=== PATIENT | female | born 1940 | race Caucasian/White ===

== ENCOUNTER → 2016-09-10 | Outpatient (CLI) | payer MEDICARE ==
--- NOTE | 2016-09-10 10:48 | US ---
EXAMINATION TYPE: US abdomen comp/pelvis limited DATE OF EXAM: 09/10/2016 9:09 AM COMPARISON: NONE CLINICAL HISTORY: Hematuria R31.9. 2 episodes of gross hematuria 6 months apart for one day EXAM MEASUREMENTS: Liver Length: 13.1 cm Gallbladder Wall: 0.2 cm CBD: 0.4 cm Spleen: 8.7 cm Right Kidney: 9.0 x 4.0 x 4.0 cm Left Kidney: 8.9 x 3.6 x 5.0 cm No renal stones or hydronephrosis are evident. 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 Monitoring with ultrasound is recommended.
== END | disposition home or self-care (01) ==
LOC: RADUSWWP 08:29
PROVIDERS: ATTEND Internal Medicine Geriatric Medicine
DX: R31.9 Hematuria, unspecified (principal)
CPT/HCPCS: 76700; 76857

== ENCOUNTER → 2016-09-20 | Outpatient (CLI) | payer MEDICARE ==
--- NOTE | 2016-09-20 14:33 | CT ---
EXAMINATION TYPE: CT abdomen pelvis wo con DATE OF EXAM: 09/20/2016 2:03 PM COMPARISON: Ultrasound abdomen 10 Sep 2016 HISTORY: Hematuria CT DLP: 683 mGycm Automated exposure control for dose reduction was used. TECHNIQUE: Helical acquisition of images from the lung bases through the pelvis. FINDINGS: Lack of intravenous contrast may compromise sensitivity. LUNG BASES: No significant abnormality is appreciated. AORTA: Atheromatous changes are present, there is no evident aneurysm. Coronary artery calcification s are present. At the level of the hiatus there is a bilobed soft tissue density present coursing fro m the level of the distal esophagus just anterior and lateral to the midline within the abdomen measu ring approximately 3 cm in AP dimension by 14 mm in transverse dimension and is indeterminate. LIVER/GB: No significant abnormality is appreciated. PANCREAS: No significant abnormality is seen. SPLEEN: No significant abnormality is seen. ADRENALS: No significant abnormality is seen. KIDNEYS: Small hypodense focus within the right renal cortex corresponds to ultrasound finding and ma y represent a small angiomyolipoma measuring only 7 mm. There is no hydronephrosis bilaterally, no ne phrolithiasis or ureteral calculus. REPRODUCTIVE ORGANS: Uterus and adnexal structures are somewhat atrophic URINARY BLADDER: There is a cystocele present.. BOWEL: Diverticular changes associated with the sigmoid colon. No evident bowel obstruction. FREE AIR: No Free Air is visible. ASCITES: None visible. PELVIC ADENOPATHY: None visualized. RETROPERITONEAL ADENOPATHY: No Retroperitoneal Adenopathy visible. OSSEOUS STRUCTURES: No significant abnormality is seen. IMPRESSION: NONCONTRAST EXAM. INDETERMINATE SOFT TISSUE LESION AT THE LEVEL OF THE DISTAL ESOPHAGUS EXTENDING INT O THE ABDOMEN IS INDETERMINATE BUT SHOWS A NONAGGRESSIVE APPEARANCE, OF QUESTIONABLE CLINICAL SIGNIFI CANCE. 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 CYSTOCELE I S PRESENT WITHIN THE BLADDER.
== END | disposition home or self-care (01) ==
LOC: RADCTMAIN 13:18
PROVIDERS: ATTEND Internal Medicine Geriatric Medicine
DX: N81.10 Cystocele, unspecified (principal); R31.9 Hematuria, unspecified
CPT/HCPCS: 74176

== ENCOUNTER → 2016-10-14 | Outpatient (CLI) | payer MEDICARE ==
[2016-10-14 11:14] LABS: Blood Urea Nitrogen 15 mg/dL (7-17); Non-African American GFR(MDRD) >60 (>60 ml/min/1.73 sqM)
--- NOTE | 2016-10-14 11:51 | CT ---
EXAMINATION TYPE: CT abdomen w con DATE OF EXAM: 10/14/2016 COMPARISON: NONE HISTORY: Episodes of hematuria CT DLP: 270.2 mGycm Automated exposure control for dose reduction was used. CONTRAST: Performed with Oral Contrast and with IV Contrast, patient injected with 100 mL of Omnipaque 300. FINDINGS: LUNG BASES: There is cardiomegaly correlate for COPD. LIVER/GB: Localized area of fatty infiltration involving the left lobe of liver. Areas PANCREAS: No s ignificant abnormality is seen. SPLEEN: No significant abnormality is seen. ADRENALS: No significant abnormality is seen. KIDNEYS: Subcentimeter density within the right kidney too small to characterize. No hydronephrosis. BOWEL: No significant abnormality is seen. LYMPH NODES: No significant abnormality is seen. OSSEOUS STRUCTURES: No significant abnormality is seen. OTHER: Atherosclerotic change aorta. Ectasia and eccentric atherosclerotic disease involving the left proximal common iliac artery with approximate 60% stenosis. IMPRESSION: THERE IS A 5 MM LESION INVOLVING THE ANTERIOR RIGHT CORTEX WHICH IS STABLE FROM THE PREVIOUS NONCONTR AST CT MAY REPRESENT AN ANGIOMYOLIPOMA IT APPEARS IT MAY REPRESENT FAT ATTENUATION ON THE PREVIOUS EXAM. THIS IS TOO SMALL TO ACCURATELY CHARACTERIZE. 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 CORRELATE FO R LEFT-SIDED CLAUDICATION. LEFT EXTERNAL ILIAC ARTERY DOES NOT ENHANCE AND MAY BE OCCLUDED ON A CHRON IC BASIS..
== END | disposition home or self-care (01) ==
LOC: RADCTMAIN 10:42
PROVIDERS: ATTEND Urology
DX: L98.9 Disorder of the skin and subcutaneous tissue, unspecified (principal); I77.811 Abdominal aortic ectasia
CPT/HCPCS: 82565; 84520; 74160; 36415; Q9967

== ENCOUNTER → 2017-12-15 | Outpatient (CLI) | payer MEDICARE ==
--- NOTE | 2017-12-15 13:02 | XR ---
EXAMINATION TYPE: XR chest 2V DATE OF EXAM: 12/15/2017 COMPARISON: Chest x-ray January 22, 2015. HISTORY: Cough since September with shortness of breath TECHNIQUE: Frontal and lateral views of the chest are obtained. FINDINGS: There is chronic parenchymal change without suspicious new focal air space opacity, pleura l effusion, or pneumothorax seen. The cardiac silhouette size is stable and upper limits of normal. The osseous structures are demineralized. IMPRESSION: Chronic changes without suspicious new acute pulmonary process.
== END | disposition home or self-care (01) ==
LOC: RADXRMAIN 12:30
PROVIDERS: ATTEND Internal Medicine Geriatric Medicine
DX: R05 Cough (principal)
CPT/HCPCS: 71046

== ENCOUNTER 2018-12-21 16:06 | Emergency (ER) | payer MEDICARE ==
[2018-12-21 16:14] VITALS: BP 104/63; PULSE 72; RESP 16; TEMP 98.1
[2018-12-21] MEDS ORDERED: Acetaminophen-Codeine 300-30mg TAB PO STA (17:14)
[2018-12-21 18:02] LABS: ALT 11 U/L (9-52); AST 16 U/L (14-36); African American GFR (CKD) >90 (>60 ml/min/1.73 sqM); Albumin 3.3 g/dL (3.5-5.0); Alkaline Phosphatase 101 U/L (38-126); Anion Gap 9 mmol/L; Blood Urea Nitrogen 21 mg/dL (7-17); Calcium 8.7 mg/dL (8.4-10.2); Carbon Dioxide 25 mmol/L (22-30); Chloride 101 mmol/L (98-107); Glucose 118 mg/dL (74-99); Sodium 135 mmol/L (137-145); Total Bilirubin 0.6 mg/dL (0.2-1.3); Total Protein 6.2 g/dL (6.3-8.2)
--- NOTE | 2018-12-21 18:08 | XR ---
EXAMINATION TYPE: XR shoulder complete LT DATE OF EXAM: 12/21/2018 COMPARISON: NONE HISTORY: Pain after fall TECHNIQUE: 3 views FINDINGS: There is impacted humeral neck fracture. There is no dislocation. There is osteopenia. IMPRESSION: Acute impacted humeral neck fracture. There is probably comminution.
--- NOTE | 2018-12-21 18:09 | XR ---
EXAMINATION TYPE: XR humerus LT DATE OF EXAM: 12/21/2018 COMPARISON: NONE HISTORY: Shoulder pain TECHNIQUE: 4 views FINDINGS: There is impacted humeral neck fracture. There is no dislocation. Elbow joint appears intac t. There is osteopenia. IMPRESSION: Acute impacted humeral neck fracture.
--- NOTE | 2018-12-21 18:10 | XR ---
EXAMINATION TYPE: XR chest 1V DATE OF EXAM: 12/21/2018 COMPARISON: 12/15/2017 HISTORY: Shoulder pain TECHNIQUE: Single frontal view of the chest is obtained. FINDINGS: Heart is normal. Lungs are clear of consolidation. Thoracic aorta is atheromatous. There a re no hilar masses. Bony thorax is intact. IMPRESSION: No active cardiopulmonary disease. Atheromatous aorta. No change.
[2018-12-21 18:25] LABS: Anisocytosis Slight; Basophils % (A) 0 %; Eosinophils # (A) 0.1 k/uL (0-0.7); Eosinophils % (A) 1 %; HCT 35.5 % (34.0-46.0); HGB 11.3 gm/dL (11.4-16.0); Lymphocytes # (A) 0.4 k/uL (1.0-4.8); Lymphocytes % (A) 6 %; MCH 33.6 pg (25.0-35.0); MCHC 31.9 g/dL (31.0-37.0); MCV 105.3 fL (80.0-100.0); Macrocytosis Moderate; Mean Platelet Volume 7.6; Monocytes # (A) 0.4 k/uL (0-1.0); Monocytes % (A) 5 %; Neutrophils # (A) 6.1 k/uL (1.3-7.7); Neutrophils % (A) 87 %; Platelet Count 433 k/uL (150-450); RBC 3.37 m/uL (3.80-5.40)
[2018-12-21] MEDS ORDERED: SODIUM CHLORIDE 0.9% 500 ML 500 ML IV STA (18:30)
--- NOTE | 2018-12-21 18:56 | ED ---
General Adult HPI - General Chief complaint: Fall Stated complaint: FALL Time Seen by Provider: 12/21/18 16:11 Source: patient, RN notes reviewed, old records reviewed Mode of arrival: EMS Limitations: no limitations - History of Present Illness Initial comments: 78-year-old female patient with past history significant for Parkinson's disease presents ED chief complaint fall, left shoulder pain. Patient reports that she has a shuffling gait, slipped walking the kitchen falling down hitting her left shoulder. Denies any trauma to head or neck, denies any loss of consciousness. Patient's daughter who was reportedly a registered nurse in the emergency department for many years also request patient undergo basic laboratory investigations check for dehydration, decreased oral intake. Systemic: Pt denies fatigue, fever/chills, rash. Pt denies weakness, night sweats, weight loss. Neuro: Pt denies headache, visual disturbances, syncope or pre-syncope. HEENT: Pt denies ocular discharge or irritation, otalgia, rhinorrhea, pharyngitis or notable lymphadenopathy. Cardiopulmonary: Pt denies chest pain, SOB, heart palpitations, dyspnea on exertion. Abdominal/GI: Pt denies abdominal pain, n/v/d. : Pt denies dysuria, burning w/ urination, frequency/urgency. Denies new onset urinary or bowel incontinence. MSK: Pt denies myalgia, loss of strength or function in extremities. Neuro: Pt denies new onset weakness, paresthesias. - Related Data Home Medications Medication Instructions Recorded Confirmed Aspirin EC [Ecotrin] 325 mg PO DAILY 01/22/15 01/23/15 Carbidopa-Levodopa 25-100 mg 1.5 tab PO QID 01/22/15 01/23/15 [Sinemet 25-100 mg] Cholecalciferol [Vitamin D3 (25 1,000 unit PO DAILY 01/22/15 01/23/15 Mcg = 1000 Iu)] Ubidecarenone [Co Q-10] 200 mg PO DAILY 01/22/15 01/23/15 Hydroxyurea [Hydrea] 500 mg PO BID 01/23/15 01/23/15 Allergies Allergy/AdvReac Type Severity Reaction Status Date / Time adhesive Allergy Unknown Verified 01/23/15 10:27 Review of Systems ROS Statement: Those systems with pertinent positive or pertinent negative responses have been documented in the HPI. ROS Other: All systems not noted in ROS Statement are negative. Past Medical History Past Medical History: Myocardial Infarction (CT), Neurologic Disorder Additional Past Medical History / Comment(s): Parkinson's Disease; Thrombocythemia Last Myocardial Infarction Date:: 2011 History of Any Multi-Drug Resistant Organisms: None Reported Past Surgical History: Heart Catheterization With Stent Past Anesthesia/Blood Transfusion Reactions: No Reported Reaction Additional Past Anesthesia/Blood Transfusion Reaction / Comment(s): Pt has never had. Date of Last Stent Placement:: 2011 Past Psychological History: No Psychological Hx Reported Smoking Status: Former smoker Past Alcohol Use History: None Reported Past Drug Use History: None Reported - Past Family History Mother Family Medical History: Chest Pain / Angina, Coronary Artery Disease (CAD) General Exam - General Exam Comments Initial Comments: Constitutional: NAD, AOX3, Pt has pleasant affect. HEENT: NC/AT, trachea midline, neck supple, no lymphadenopathy. Posterior p harynx non erythematous, without exudates. External ears appear normal, without discharge. Mucous membranes moist. Eyes PERRLA, EOM intact. There is no scleral icterus. No pallor noted. Cardiopulmonary: RRR, no murmurs, rubs or gallops, no JVD noted. Lungs CTAB in anterior and posterior wolfe. No peripheral edema. Abdominal exam: Abdomen soft and non-distended. Abdomen non-tender to palpation in all 4 quadrants. Bowel sounds active in LLQ. No hepatosplenomegaly. No ecchymosis Neuro: CN II-XII grossly intact. No nuchal rigidity. No raccon eyes, no day sign, no hemotympanum. No cervical spinal tenderness. MSK: Left proximal humerus tender to palpation. Distal pulses intact and equal. Flexion range of motion from fingers to elbow. Limited range of motion secondary to pain in left shoulder. No posterior calf tenderness bilaterally, homans sign negative bilaterally. Posterior tibialis and radial pulse +2 bilaterally. Sensation intact in upper and lower extremities. Full active ROM in upper and lower extremities, 5/5 stregnth. Limitations: no limitations Course Vital Signs 12/21/18 16:09 Temperature 98.1 F Pulse Rate 72 Respiratory 16 Rate Blood Pressure 104/63 O2 Sat by Pulse 99 Oximetry Medical Decision Making - Medical Decision Making 78-year-old female patient with past history significant for Parkinson's disease presents ED chief complaint fall, left shoulder pain. Patient reports that she has a shuffling gait, slipped walking the kitchen falling down hitting her left shoulder. Denies any trauma to head or neck, denies any loss of consciousness. Patient's daughter who was reportedly a registered nurse in the emergency department for many years also request patient undergo basic laboratory investigations check for dehydration, decreased oral intake. Patient vital signs stable, afebrile. Physical exam displayed: Left proximal humerus tender to palpation. Distal pulses intact and equal. Flexion range of motion from fingers to elbow. Limited range of motion secondary to pain in left shoulder. No posterior calf tenderness bilaterally, homans sign negative bilaterally. Posterior tibialis and radial pulse +2 bilaterally. Sensation intact in upper and lower extremities. Full active ROM in upper and lower extremities, 5/5 stregnth. Laboratory investigations reveal non-impressive CBC, CMP. UA contaminated, will culture. Plain films of left shoulder, femur displayed acute impacted humeral neck fracture. Chest displayed no acute process. Patient placed in a shoulder sling, will be discharged with orthopedic follow-up. Case discussed with Dr. Cole. - Lab Data Result diagrams: 12/21/18 17:40 12/21/18 17:40 Lab Results 12/21/18 12/21/18 12/21/18 Range/Units 17:40 17:40 18:30 WBC 7.0 (3.8-10.6) k/uL RBC 3.37 L (3.80-5.40) m/uL Hgb 11.3 L (11.4-16.0) gm/dL Hct 35.5 (34.0-46.0) % MCV 105.3 H (80.0-100.0) fL MCH 33.6 (25.0-35.0) pg MCHC 31.9 (31.0-37.0) g/dL RDW 17.0 H (11.5-15.5) % Plt Count 433 (150-450) k/uL Neutrophils % 87 % Lymphocytes % 6 % Monocytes % 5 % Eosinophils % 1 % Basophils % 0 % Neutrophils # 6.1 (1.3-7.7) k/uL Lymphocytes # 0.4 L (1.0-4.8) k/uL Monocytes # 0.4 (0-1.0) k/uL Eosinophils # 0.1 (0-0.7) k/uL Basophils # 0.0 (0-0.2) k/uL Anisocytosis Slight Macrocytosis Moderate Sodium 135 L (137-145) mmol/L Potassium 4.0 (3.5-5.1) mmol/L Chloride 101 (98-107) mmol/L Carbon Dioxide 25 (22-30) mmol/L Anion Gap 9 mmol/L BUN 21 H (7-17) mg/dL Creatinine 0.54 (0.52-1.04) mg/dL Est GFR (CKD-EPI)AfAm >90 (>60 ml/min/1.73 sqM) Est GFR (CKD-EPI)NonAf >90 (>60 ml/min/1.73 sqM) Glucose 118 H (74-99) mg/dL Calcium 8.7 (8.4-10.2) mg/dL Total Bilirubin 0.6 (0.2-1.3) mg/dL AST 16 (14-36) U/L ALT 11 (9-52) U/L Alkaline Phosphatase 101 (38-126) U/L Total Protein 6.2 L (6.3-8.2) g/dL Albumin 3.3 L (3.5-5.0) g/dL Urine Color Red Urine Appearance Cloudy H (Clear) Urine pH 5.5 (5.0-8.0) Ur Specific [place] 1.029 (1.001-1.035) Urine Protein 1+ H (Negative) Urine Glucose (UA) Negative (Negative) Urine Ketones 2+ H (Negative) Urine Blood Trace H (Negative) Urine Nitrite Negative (Negative) Urine Bilirubin Negative (Negative) Urine Urobilinogen 3.0 (<2.0) mg/dL Ur Leukocyte Esterase Moderate H (Negative) Urine RBC 6 H (0-5) /hpf Urine WBC 9 H (0-5) /hpf Ur Squamous Epith Cells 11 H (0-4) /hpf Calcium Oxalate [place] Few H (None) /hpf Urine Bacteria Few H (None) /hpf Urine Mucus Few H (None) /hpf Urine Yeast (Budding) Rare H (None) /hpf Disposition Clinical Impression: Humerus fracture Disposition: HOME SELF-CARE Condition: Stable Instructions (If sedation given, give patient instructions): Arm Fracture in Adults (ED) Additional Instructions: Patient to adhere to previously discussed treatment plan and will take medication(s) as directed. Patient to follow up with PCP in 1-2 days. Patient to return to ED if symptoms do not improve. Follow-up with orthopedic consult tomorrow, return to ER if condition worsens. Take pain medication as needed. Is patient prescribed a controlled substance at d/c from ED?: No Referrals: Ky Coats MD [Primary Care Provider] - 1-2 days Neftali Palm PAC [PHYSICIAN HVAC R TECH] - 1-2 days
[2018-12-21 18:59] LABS: Appearance,Urine Cloudy (Clear); Bacteria,Urine Few /hpf; Bilirubin,Urine Negative (Negative); Blood,Urine Trace (Negative); Budding Yeast,Urine Rare /hpf; Calcium Oxalate Crystals,Urine Few /hpf; Color,Urine Red; Glucose,Urine (UA) Negative (Negative); Ketones,Urine 2+ (Negative); Leukocyte Esterase,Urine Moderate (Negative); Mucus,Urine Few /hpf; Nitrite,Urine Negative (Negative); PH, Urine 5.5 (5.0-8.0); Protein,Urine 1+ (Negative); RBC,Urine 6 /hpf (0-5); Specific Gravity,Urine 1.029 (1.001-1.035); Squamous Epithelial Cell,Urine 11 /hpf (0-4); WBC,Urine 9 /hpf (0-5)
[2018-12-21] MEDS ORDERED: ACET/COD 300 MG/30 MG STARTER PACK 6 TAB BTL PO STA (19:14)
== END 2018-12-21 19:35 | disposition home or self-care (01) ==
LOC: EC 16:06
DX: S42.202A Unspecified fracture of upper end of left humerus, initial encounter for closed fracture (principal); I25.2 Old myocardial infarction; G20 Parkinson's disease; Z95.5 Presence of coronary angioplasty implant and graft; Z87.891 Personal history of nicotine dependence; Z79.82 Long term (current) use of aspirin; Z79.899 Other long term (current) drug therapy; Z91.048 Other nonmedicinal substance allergy status; W01.10XA Fall on same level from slipping, tripping and stumbling with subsequent striking against unspecified object, initial encounter; Y93.01 Activity, walking, marching and hiking; Y92.000 Kitchen of unspecified non-institutional (private) residence as the place of occurrence of the external cause
CPT/HCPCS: 36415; 71045; 80053; 81001; 85025; 99284

== ENCOUNTER → 2018-12-29 | Outpatient (CLI) | payer MEDICARE | END | disposition home or self-care (01) | LOC: LABWHC1 11:18 | PROVIDERS: ATTEND Orthopaedic Surgery | DX: M25.512 Pain in left shoulder (principal); S42.232A 3-part fracture of surgical neck of left humerus, initial encounter for closed fracture | CPT/HCPCS: 36415; 82306 ==

== ENCOUNTER 2019-01-04 12:22 | Inpatient (IN) | payer MEDICARE ==
[2019-01-04] MEDS ORDERED: MORPHINE SULFATE 2 MG/ML SYRINGE IVP PRN (14:33)
[2019-01-04] MEDS ORDERED: traMADol 50 MG TAB PO PRN (14:34)
[2019-01-04 15:38] VITALS: BMI 22.4
[2019-01-04] MEDS ORDERED: MAGNESIUM OXIDE 400 MG TAB PO PRN (18:12)
[2019-01-04] MEDS: CHOLECALCIFEROL 1,000 UNIT TAB PO SCH (20:29)
[2019-01-04] MEDS: CARBIDOPA-LEVODOPA 25-100 MG 1 EACH TAB PO SCH (20:30)
[2019-01-04] MEDS ORDERED: CARBIDOPA-LEVODOPA 25-100 MG 1 EACH TAB PO PRN (21:00)
[2019-01-05 05:36] VITALS: RESP 16
[2019-01-05] MEDS: ASPIRIN 325 MG TAB PO SCH (08:18)
[2019-01-05] MEDS: CARBIDOPA-LEVODOPA 25-100 MG 1 EACH TAB PO SCH ×4 (08:19→21:16)
--- NOTE | 2019-01-05 10:40 | P.HPOR ---
History of Present Illness H&P Date: 01/05/19 Chief Complaint: Left proximal humerus fracture The patient is a very pleasant 79-year-old female with a significant history of Parkinson's disease and heart disease who presented to our office last week with left arm pain after sustaining a fall. She was found to have a proximal humerus fracture that we've recommended closed treatment. At that time in the office, Dr. Louis recommended hospital admission with transfer to skilled rehab but the patient declined. She states that she was able to take care of herself at home. She continued to decline physically over the weekend and she called our office yesterday to be admitted to the hospital. Her patient also increased over the weekend and she was unable to take care of herself at home. The patient does use a cane and has weakened gait due to a fracture and pain. She is currently in a sling which is somewhat comfortable. Today, she states her pain is controlled at this time. PT and OT evaluations were ordered and case management has seen the patient. Review of Systems Constitutional: Denies chills, Denies fatigue, Denies fever Cardiovascular: Denies chest pain, Denies shortness of breath Respiratory: Denies cough Gastrointestinal: Denies diarrhea, Denies nausea, Denies vomiting Musculoskeletal: left: shoulder pain, shoulder stiffness, shoulder swelling Past Medical History Past Medical History: Blood Disorder, Coronary Artery Disease (CAD), GERD/Reflux, Myocardial Infarction ([place]), Musculoskeletal Disorder, Neurologic Disorder, Osteoarthritis (OA) Additional Past Medical History / Comment(s): Parkinson's disease, thrombocythemia Last Myocardial Infarction Date:: 2012 History of Any Multi-Drug Resistant Organisms: None Reported Past Surgical History: Heart Catheterization, Heart Catheterization With Stent, Tonsillectomy, Tubal Ligation Additional Past Surgical History / Comment(s): 2003 PCI with 2 stents, 2009 PCI with 1 stent, 2012 cardiac cath-treat medically, bilateral cataract removals/lens implants. Past Anesthesia/Blood Transfusion Reactions: No Reported Reaction Additional Past Anesthesia/Blood Transfusion Reaction / Comment(s): Pt has never had. Date of Last Stent Placement:: 2009 Smoking Status: Former smoker - Past Family History Father Family Medical History: Cancer Additional Family Medical History / Comment(s): Father had prostate cancer. Mother Family Medical History: Chest Pain / Angina, Coronary Artery Disease (CAD) Medications and Allergies Home Medications Medication Instructions Recorded Confirmed Type Aspirin EC [Ecotrin] 325 mg PO DAILY 01/22/15 01/04/19 History Carbidopa-Levodopa 25-100 mg 2 tab PO QID 01/22/15 01/04/19 History [Sinemet 25-100 mg] Cholecalciferol [Vitamin D3 (25 2,000 unit PO DAILY 01/22/15 01/04/19 History Mcg = 1000 Iu)] Hydroxyurea [Hydrea] 500 mg PO DIRECTED 01/23/15 01/04/19 History Carbidopa-Levodopa 25-100 mg 1 tab PO HS PRN 01/04/19 01/04/19 History [Sinemet 25-100] Ibuprofen [Advil] 400 - 600 mg PO Q4H PRN 01/04/19 01/04/19 History Magnesium 200 mg PO DAILY PRN 01/04/19 01/04/19 History Allergies Allergy/AdvReac Type Severity Reaction Status Date / Time adhesive Allergy Rash/Hives Verified 01/04/19 16:19 shellfish derived [Shellfish] AdvReac Nausea & Verified 01/04/19 16:19 Vomiting & Diarrhea Physical Examination The patient is a pleasant 79-year-old female who is in no acute distress. She is alert and oriented 3. The patient's head is normocephalic atraumatic. Exam of the cervical spine reveals no tenderness to palpation or step-offs noted. Exam of the left shoulder reveals some evolving ecchymosis to the upper arm. Range of motion of the shoulder was not tested today. Normal range of motion of the elbow, wrist, and hand. No numbness present. Neurological and circulatory status is intact. Hand is warm and well perfused. Results - Diagnostic results Shoulder x-ray: other (X-rays from our office of the left shoulder reveal a minimally displaced proximal humerus fracture. Fracture alignment is satisfactory.) Assessment and Plan (1) Fracture of humerus, proximal, left, closed Current Visit: Yes Status: Acute Code(s): S42.202A - UNSP FRACTURE OF UPPER END OF LEFT HUMERUS, INIT FOR CLOS FX SNOMED Code(s): 36098465 (2) Parkinsons disease Current Visit: Yes Status: Acute Code(s): G20 - PARKINSON'S DISEASE SNOMED Code(s): 81800145 Plan: The clinical and x-ray findings were discussed with the patient and the patient's caregiver at the bedside. The case was also discussed with Dr. Louis. No surgical intervention is planned at this time. We are recommending skilled rehab placement to [facility]. PT and OT evaluations have been requested. Continue pain control with morphine IV as needed and Ultram. Continue in arm sling. Internal medicine consult has been requested as well. We will await arrangements with social work and onelia geronimo for rehab placement.
[2019-01-05] MEDS ORDERED: SODIUM CHLORIDE 0.9% 1,000 ML IV SCH (13:15)
--- NOTE | 2019-01-05 13:21 | P.HPIM ---
History of Present Illness H&P Date: 01/05/19 Chief Complaint: Left humerus fracture, cough, dysphagia, generalized weakness This is a 79-year-old female patient of Dr. Coats with a past mental history of Parkinson's disease, thrombocythemia on Hydrea, coronary artery disease status post multiple stenting, gastroesophageal reflux disease. Patient gives history that 2 weeks ago she had a fall while walking from the living room to the kitchen. She normally has a shuffling gait secondary to her Parkinson's. She had a fall landing on her left shoulder. She denied any loss of consciousness, head trauma, neck ache. Patient came into [facility] emergency center on December 21 for evaluation. Patient was found to have an acute impacted humeral neck fracture. Patient was discharged home and has been following with Dr. Louis. Patient has had [place] home care and with physical therapy twice weekly the patient is not improving. Patient has been working with therapies and actually is declining. There is concern for failure to thrive. Patient states that she is not eating or drinking very well. There is concern for dysphagia and a cough. She did have a chest x-ray obtained on December 21 that was negative for any acute findings. Patient has been directly admitted to the [facility] floor by orthopedics. She has been afebrile, heart rate 89, blood pressure 84/49-110/62 this morning, pulse ox 96% on room air. Review of Systems Constitutional: Reports anorexia, Reports fatigue, Reports lethargy, Reports malaise, Reports poor appetite, Reports weakness, Denies chills, Denies fever Ears, nose, mouth and throat: Reports dysphagia, Denies dental pain, Denies mouth pain, Denies nasal congestion, Denies nasal discharge, Denies vertigo Cardiovascular: Denies chest pain, Denies decreased exercise tolerance, Denies dyspnea on exertion, Denies edema, Denies leg edema, Denies lightheadedness, Denies shortness of breath, Denies syncope Respiratory: Denies congestion, Denies cough, Denies cough with sputum, Denies dyspnea, Denies hemoptysis, Denies home oxygen, Denies wheezing Gastrointestinal: Reports loss of appetite, Denies abdominal pain, Denies diarrhea, Denies nausea, Denies vomiting Genitourinary: Denies dysuria, Denies hematuria, Denies urgency, Denies urinary frequency Musculoskeletal: Reports gait dysfunction, Reports muscle weakness Musculoskeletal: left: shoulder pain, shoulder stiffness Integumentary: Denies pruritus, Denies rash, Denies wounds Neurological: Reports syncope, Denies change in mentation, Denies change in speech, Denies numbness, Denies seizures, Denies weakness Psychiatric: Denies anxiety, Denies depression Endocrine: Denies fatigue, Denies weight change Past Medical History Past Medical History: Blood Disorder, Coronary Artery Disease (CAD), GERD/Reflux, Myocardial Infarction (ID), Musculoskeletal Disorder, Neurologic Disorder, Osteoarthritis (OA) Additional Past Medical History / Comment(s): Parkinson's disease, thrombocythemia Last Myocardial Infarction Date:: 2012 History of Any Multi-Drug Resistant Organisms: None Reported Past Surgical History: Heart Catheterization, Heart Catheterization With Stent, Tonsillectomy, Tubal Ligation Additional Past Surgical History / Comment(s): 2003 PCI with 2 stents, 2009 PCI with 1 stent, 2012 cardiac cath-treat medically, bilateral cataract removals/lens implants. Past Anesthesia/Blood Transfusion Reactions: No Reported Reaction Additional Past Anesthesia/Blood Transfusion Reaction / Comment(s): Pt has never had. Date of Last Stent Placement:: 2009 Smoking Status: Former smoker Additional Past Alcohol Use History / Comment(s): Patient was a smoker for 44 years and quit in 2003. No illicit drug use, no alcohol use. - Past Family History Father Family Medical History: Cancer Additional Family Medical History / Comment(s): Father had prostate cancer. Mother Family Medical History: Chest Pain / Angina, Coronary Artery Disease (CAD) Medications and Allergies Home Medications Medication Instructions Recorded Confirmed Type Aspirin EC [Ecotrin] 325 mg PO DAILY 01/22/15 01/04/19 History Carbidopa-Levodopa 25-100 mg 2 tab PO QID 01/22/15 01/04/19 History [Sinemet 25-100 mg] Cholecalciferol [Vitamin D3 (25 2,000 unit PO DAILY 01/22/15 01/04/19 History Mcg = 1000 Iu)] Hydroxyurea [Hydrea] 500 mg PO DIRECTED 01/23/15 01/04/19 History Carbidopa-Levodopa 25-100 mg 1 tab PO HS PRN 01/04/19 01/04/19 History [Sinemet 25-100] Ibuprofen [Advil] 400 - 600 mg PO Q4H PRN 01/04/19 01/04/19 History Magnesium 200 mg PO DAILY PRN 01/04/19 01/04/19 History traMADol HCl [Ultram] 50 - 100 mg PO Q4-6H PRN #60 tab 01/05/19 Rx Allergies Allergy/AdvReac Type Severity Reaction Status Date / Time adhesive Allergy Rash/Hives Verified 01/04/19 16:19 shellfish derived [Shellfish] AdvReac Nausea & Verified 01/04/19 16:19 Vomiting & Diarrhea Physical Exam Vitals: Vital Signs Temp Pulse Resp BP Pulse Ox 01/05/19 05:00 97.6 F 84 16 141/87 96 01/05/19 01:53 82 18 148/95 96 01/05/19 00:25 70 16 01/04/19 21:00 97.9 F 70 16 118/77 99 01/04/19 15:26 78 16 01/04/19 15:00 97.7 F 78 16 91/62 98 Intake and Output 01/04/19 01/05/19 01/05/19 22:59 06:59 14:59 Intake Total 590 Balance 590 Intake: Oral 590 Other: Voiding Method Toilet Toilet # Voids 1 2 Weight 52.163 kg Gen: This is a frail 79-year-old female. She is resting in chair and appears to be comfortable. No acute distress. HEENT: Head is atraumatic, normocephalic. Pupils equal, round. Sclerae is a nicteric. NECK: Supple. No JVD. No lymphadenopathy. No thyromegaly. LUNGS: Clear to auscultation. No wheezes or rhonchi. No intercostal retractions. HEART: Regular rate and rhythm. No murmur. ABDOMEN: Soft. Bowel sounds are present. No masses. No tenderness. EXTREMITIES: No pedal edema. No calf tenderness. Sling in place to the left shoulder. NEUROLOGICAL: Patient is awake, alert and oriented x3. Cranial nerves 2 through 12 are grossly intact. Thrombosis Risk Factor Assmnt - Choose All That Apply Any of the Below Risk Factors Present?: Yes Other Risk Factors: Yes Each Risk Factor Represents 3 Points: Age 75 years or older Other congenital or acquired thrombophilia - If yes, enter type in comment: No Thrombosis Risk Factor Assessment Total Risk Factor Score: 3 Thrombosis Risk Factor Assessment Level: Moderate Risk Assessment and Plan Plan: 1. Left humerus fracture, failed outpatient treatment area and patient overall physical decline despite home care and physical therapy. 2. Dysphagia. Consult with speech therapy. Patient may require modified barium swallow. 3. Parkinson's disease. Continue Sinemet 2 tablets 4 times daily and 1 at b edtime as needed. 4. Thrombocythemia. Continue Hydrea per home dose. 5. Gastroesophageal reflux disease. Pepcid. 6. DVT prophylaxis. Lovenox subcu daily. Patient will be admitted to the hospital for a minimum of 2 night stay. Discharge plan: Subacute rehab for therapies as patient failed outpatient treatment in the home. Impression and plan of care have been directed as dictated by the signing physician. Linda Baxter nurse practitioner acting as scribe for signing physician.
[2019-01-05] MEDS ORDERED: HYDROXYUREA 500 MG CAP PO SCH (18:00)
[2019-01-05] MEDS: CHOLECALCIFEROL 1,000 UNIT TAB PO SCH (21:16)
[2019-01-06] MEDS: CARBIDOPA-LEVODOPA 25-100 MG 1 EACH TAB PO SCH ×2 (07:43→12:27)
[2019-01-06] MEDS: ASPIRIN 325 MG TAB PO SCH (07:44)
[2019-01-06 13:01] VITALS: BP 110/69; PULSE 99; TEMP 98
--- NOTE | 2019-01-06 13:02 | P.PN ---
Subjective Progress Note Date: 01/06/19 This is a 79-year-old female patient of Dr. Coats with a past mental history of Parkinson's disease, thrombocythemia on Hydrea, coronary artery disease status post multiple stenting, gastroesophageal reflux disease. Patient gives history that 2 weeks ago she had a fall while walking from the living room to the kitchen. She normally has a shuffling gait secondary to her Parkinson's. She had a fall landing on her left shoulder. She denied any loss of consciousness, head trauma, neck ache. Patient came into [facility] emergency center on December 21 for evaluation. Patient was found to have an acute impacted humeral neck fracture. Patient was discharged home and has been following with Dr. Louis. Patient has had [place] home care and with physical therapy twice weekly the patient is not improving. Patient has been working with therapies and actually is declining. There is concern for failure to thrive. Patient states that she is not eating or drinking very well. There is concern for dysphagia and a cough. She did have a chest x-ray obtained on December 21 that was negative for any acute findings. Patient has been directly admitted to the [facility] floor by orthopedics. She has been afebrile, heart rate 89, blood pressure 84/49-110/62 this morning, pulse ox 96% on room air. 01/06: Patient has been seen by PT and OT with recommendations for subacute rehab. Patient has been seen by therapy for dysphagia and she did pass swallow evaluation with recommendations for regular diet and thin liquids. Patient has been afebrile, heart rate 89, blood pressure 140/77, pulse ox 98% on room air. Insurance authorization has been obtained for subacute rehab and patient will be discharged to [facility] in stable condition today. Medication reconciliation has been reviewed. Review of Systems Constitutional: Reports fatigue, Reports lethargy, Reports malaise, denies poor appetite, Reports weakness, Denies chills, Denies fever Ears, nose, mouth and throat: Reports dysphagia-past swallow evaluation., Denies dental pain, Denies mouth pain, Denies nasal congestion, Denies nasal discharge, Denies vertigo Cardiovascular: Denies chest pain, Denies decreased exercise tolerance, Denies dyspnea on exertion, Denies edema, Denies leg edema, Denies lightheadedness, Denies shortness of breath, Denies syncope Respiratory: Denies congestion, Denies cough, Denies cough with sputum, Denies dyspnea, Denies hemoptysis, Denies home oxygen, Denies wheezing Gastrointestinal: Reports loss of appetite, Denies abdominal pain, Denies diarrhea, Denies nausea, Denies vomiting Genitourinary: Denies dysuria, Denies hematuria, Denies urgency, Denies urinary frequency Musculoskeletal: Reports gait dysfunction, Reports muscle weakness Musculoskeletal: left: shoulder pain, shoulder stiffness Integumentary: Denies pruritus, Denies rash, Denies wounds Neurological: Reports syncope, Denies change in mentation, Denies change in speech, Denies numbness, Denies seizures, Denies weakness Psychiatric: Denies anxiety, Denies depression Endocrine: Denies fatigue, Denies weight change Objective - Vital Signs Vital signs: Vital Signs Temp 97.3 F L 01/06/19 05:00 Pulse 89 01/06/19 05:00 Resp 16 01/06/19 05:00 BP 140/77 01/06/19 05:00 Pulse Ox 98 01/06/19 05:00 Intake & Output 01/05/19 01/06/19 01/06/19 18:59 06:59 18:59 Intake Total 720 Balance 720 Intake: Oral 720 Other: Voiding Method Toilet Toilet Toilet # Voids 4 1 2 # Bowel Movements 1 - Exam Gen: This is a frail 79-year-old female. She is resting in chair and appears to be comfortable. No acute distress. Friend is at the bedside. HEENT: Head is atraumatic, normocephalic. Pupils equal, round. Sclerae is anicteric. NECK: Supple. No JVD. No lymphadenopathy. No thyromegaly. LUNGS: Clear to auscultation. No wheezes or rhonchi. No intercostal retractions. HEART: Regular rate and rhythm. No murmur. ABDOMEN: Soft. Bowel sounds are present. No masses. No tenderness. EXTREMITIES: No pedal edema. No calf tenderness. Sling in place to the left shoulder. NEUROLOGICAL: Patient is awake, alert and oriented x3. Cranial nerves 2 through 12 are grossly intact. Assessment and Plan Plan: 1. Left humerus fracture, failed outpatient treatment area and patient overall physical decline despite home care and physical therapy. 2. Dysphagia. Consult with speech therapy is appreciated. Patient past and is on a regular diet with thin liquids.. 3. Parkinson's disease. Continue Sinemet 2 tablets 4 times daily and 1 at bedtime as needed. 4. Thrombocythemia. Continue Hydrea per home dose. 5. Gastroesophageal reflux disease. Pepcid. 6. DVT prophylaxis. Lovenox subcu daily. Discharge plan: [facility] Impression and plan of care have been directed as dictated by the signing physician. Linda Baxter nurse practitioner acting as scribe for signing physician.
--- NOTE | 2019-01-06 13:25 | P.DS ---
Providers Date of admission: 01/04/19 14:37 Expected date of discharge: 01/06/19 Attending physician: Eliel Louis Consults: 01/04/19 14:36 Consult Physician Routine Consulting Provider: Ky Coats Reason/Comments: medical management Do you want consulting provider notified?: Yes Primary care physician: Ky Coats [facility] Course: This patient is a 79-year-old female with past medical history of Parkinson's disease, thrombocythemia, coronary artery disease status post multiple stenting that initially presented to our office last week after injury, and was found to have a left proximal humerus fracture. Closed treatment was recommended by Dr. Louis. At that time, hospital admission was recommended, with transfer to a skilled rehab facility, although patient declined. Patient declined physically, therefore she called our office Friday to request admission. Patient was direct admitted to [facility] due to issues taking care of herself at home and weakened gait, and also for PT and OT evaluations, with rehab placement. Patient was examined bedside this morning. Patient states her pain is currently well controlled. She is wearing her sling, which is comfortable. Patient is tolerating her diet well. She states she was evaluated by therapy yesterday. Patient denies any new complaints today. Patient denies chest pain, shortness of breath, nausea, vomiting, fevers, chills. Vital signs stable. On examination, the patient is sitting in the bedside chair in no apparent distress. She is alert and oriented 3. Inspection of the left upper extremity, there is a sling in place. Sling appears to be well fitting. There is resolving ecchymosis of the proximal arm. There is no pain on palpation of the distal humerus, elbow, forearm, wrist, or hand. Patient has full range of motion of fingers, hand, elbow. Range of motion of the shoulder is not tested today. Motor and sensory function are intact of the left upper extremity. Radial pulse palpable. Brisk capillary refill of all fingers and thumb. Patient is discharged to a alf facility today, pending medical clearance. Please see med rec for an accurate list of discharge medications. Assessment: Pertinent Studies: X-rays of the left shoulder are ordered on 01/06/2019 prior to discharge to assess for interval displacement of the left proximal humerus fracture. Results pending. Patient Condition at Discharge: Fair Plan - Discharge Summary Discharge Rx Participant: No New Discharge Prescriptions: New traMADol HCl [Ultram] 50 - 100 mg PO Q4-6H PRN #60 tab PRN Reason: Pain Continue Cholecalciferol [Vitamin D3 (25 Mcg = 1000 Iu)] 2,000 unit PO DAILY Carbidopa-Levodopa 25-100 mg [Sinemet 25-100 mg] 2 tab PO QID Aspirin EC [Ecotrin] 325 mg PO DAILY Magnesium 200 mg PO DAILY PRN PRN Reason: Muscle Spasm Carbidopa-Levodopa 25-100 mg [Sinemet 25-100 mg] 1 tab PO HS PRN PRN Reason: Parkinson's Changed Hydroxyurea [Hydrea] 500 mg PO DAILY #0 Discontinued Ibuprofen [Advil] 400 - 600 mg PO Q4H PRN PRN Reason: Pain Discharge Medication List Aspirin EC [Ecotrin] 325 mg PO DAILY 01/22/15 [History] Carbidopa-Levodopa 25-100 mg [Sinemet 25-100 mg] 2 tab PO QID 01/22/15 [History] Cholecalciferol [Vitamin D3 (25 Mcg = 1000 Iu)] 2,000 unit PO DAILY 01/22/15 [History] Carbidopa-Levodopa 25-100 mg [Sinemet 25-100 mg] 1 tab PO HS PRN 01/04/19 [History] Magnesium 200 mg PO DAILY PRN 01/04/19 [History] traMADol HCl [Ultram] 50 - 100 mg PO Q4-6H PRN #60 tab 01/05/19 [Rx] Hydroxyurea [Hydrea] 500 mg PO DAILY #0 01/06/19 [Rx] Follow up Appointment(s)/Referral(s): Ky Coats MD [Primary Care Provider] - 1 Week (after discharge from ECF) Eliel Louis MD [Medical Doctor] - 2 Weeks Activity/Diet/Wound Care/Special Instructions: Maintain arm sling except for bathing. May loosen sling when lying in bed or in recliner chair for comfort. Ice as needed Ultram for pain PRN. Follow up with Dr. Louis in 2 weeks. Call for appointment. Call [facility] with any questions or concerns, . Discharge Disposition: TRANSFER TO SNF/ECF
--- NOTE | 2019-01-06 15:06 | XR ---
EXAMINATION TYPE: XR shoulder limited LT DATE OF EXAM: 01/06/2019 CLINICAL HISTORY: TECHNIQUE: Three views of the shoulder are obtained. COMPARISON: None. FINDINGS: There is redemonstration of an acute impacted left proximal neck fracture as seen on the p rior of 12/21/2018. No comminuted or intra-articular component. Diffuse osseous demineralization is se en. Visualized left ribs appear grossly intact. Left lung remains well aerated. Acromioclavicular miryam nt is aligned. No left shoulder dislocation is seen. IMPRESSION: As discussed on the left humeral and left shoulder fractures dated 12/21/2018 there is red emonstration of an acute impacted left proximal humeral neck fracture unchanged from 12/21/2018.
[2019-01-09] MEDS ORDERED: HYDROXYUREA 500 MG CAP PO SCH ×2 (09:00→21:00)
== END 2019-01-06 15:00 | DRG 563 ==
LOC: 3NMEDONC 14:37
PROVIDERS: ADMIT Orthopaedic Surgery; ATTEND Orthopaedic Surgery
DX: S42.212A Unspecified displaced fracture of surgical neck of left humerus, initial encounter for closed fracture (principal); D47.3 Essential (hemorrhagic) thrombocythemia; G20 Parkinson's disease; I25.10 Atherosclerotic heart disease of native coronary artery without angina pectoris; I25.2 Old myocardial infarction; K21.9 Gastro-esophageal reflux disease without esophagitis; R13.10 Dysphagia, unspecified; W19.XXXA Unspecified fall, initial encounter; Z79.82 Long term (current) use of aspirin; Z80.42 Family history of malignant neoplasm of prostate; Z82.49 Family history of ischemic heart disease and other diseases of the circulatory system; Z87.891 Personal history of nicotine dependence; Z95.5 Presence of coronary angioplasty implant and graft; Z98.42 Cataract extraction status, left eye; Z98.41 Cataract extraction status, right eye; Z96.1 Presence of intraocular lens; Z91.013 Allergy to seafood; M19.90 Unspecified osteoarthritis, unspecified site

== ENCOUNTER 2020-07-04 16:58 | Inpatient (IN) | payer MEDICARE ==
[2020-07-04] MEDS ORDERED: SODIUM CHLORIDE 0.9% 500 ML 500 ML IV STA ×2 (17:49→21:52)
--- NOTE | 2020-07-04 18:26 | XR ---
EXAMINATION TYPE: XR chest 2V DATE OF EXAM: 07/04/2020 COMPARISON: Chest x-ray December 21, 2018 HISTORY: Difficulty in breathing. TECHNIQUE: Frontal and lateral views of the chest are obtained. FINDINGS: There chronic parenchymal changes bilaterally without suspicious new focal air space opaci ty, pleural effusion, or pneumothorax seen. The cardiac silhouette size is stable and upper limits o f normal. The osseous structures are redemonstrated demineralized. There is moderate to severe susp ected chronic compression type fracture abruptly T8 level seen on lateral view on current study. IMPRESSION: Chronic changes without acute pulmonary process.
[2020-07-04 18:46] LABS: Basophils # (A) 0.1 k/uL (0-0.2); Basophils % (A) 1 %; Eosinophils # (A) 0.1 k/uL (0-0.7); Eosinophils % (A) 2 %; HCT 38.7 % (34.0-46.0); HGB 12.5 gm/dL (11.4-16.0); Lymphocytes # (A) 1.6 k/uL (1.0-4.8); Lymphocytes % (A) 29 %; MCH 35.8 pg (25.0-35.0); MCHC 32.4 g/dL (31.0-37.0); MCV 110.4 fL (80.0-100.0); Macrocytosis Marked; Mean Platelet Volume 7.7; Monocytes # (A) 0.3 k/uL (0-1.0); Monocytes % (A) 5 %; Neutrophils # (A) 3.3 k/uL (1.3-7.7); Neutrophils % (A) 61 %; Platelet Count 333 k/uL (150-450); RBC 3.51 m/uL (3.80-5.40); RDW 13.7 % (11.5-15.5); WBC 5.5 k/uL (3.8-10.6)
[2020-07-04 18:59] LABS: ALT <6 U/L (4-34); AST 40 U/L (14-36); African American GFR (CKD) >90 (>60 ml/min/1.73 sqM); Albumin 3.9 g/dL (3.5-5.0); Alkaline Phosphatase 71 U/L (38-126); Anion Gap 5 mmol/L; Blood Urea Nitrogen 27 mg/dL (7-17); Calcium 8.8 mg/dL (8.4-10.2); Carbon Dioxide 26 mmol/L (22-30); Chloride 103 mmol/L (98-107); Glucose 92 mg/dL (74-99); Non-African American GFR(CKD) 88 (>60 ml/min/1.73 sqM); Sodium 134 mmol/L (137-145); Total Bilirubin 0.8 mg/dL (0.2-1.3); Total Protein 7.1 g/dL (6.3-8.2)
[2020-07-04 19:06] LABS: Potassium 5.5 mmol/L (3.5-5.1)
[2020-07-04 19:14] LABS: Appearance,Urine Clear (Clear); Bacteria,Urine Rare /hpf; Bilirubin,Urine Negative (Negative); Blood,Urine Negative (Negative); Color,Urine Yellow; Glucose,Urine (UA) Negative (Negative); Ketones,Urine Negative (Negative); Leukocyte Esterase,Urine Large (Negative); Mucus,Urine Occasional /hpf; Nitrite,Urine Negative (Negative); PH, Urine 5.5 (5.0-8.0); Protein,Urine Negative (Negative); Specific Gravity,Urine 1.014 (1.001-1.035); Squamous Epithelial Cell,Urine 2 /hpf (0-4); Urobilinogen,Urine <2.0 mg/dL (<2.0); WBC,Urine 6 /hpf (0-5)
[2020-07-04 19:17] LABS: Partial Thromboplastin Time 22.2 sec (22.0-30.0); Prothrombin Time 10.4 sec (9.0-12.0)
[2020-07-04 19:25] LABS: D-Dimer 1.41 mg/L FEU (<0.60)
[2020-07-04] MEDS ORDERED: diphenhydrAMINE 50 MG/ML 1 ML VIAL IVP STA (19:29)
[2020-07-04] MEDS ORDERED: FAMOTIDINE 20 MG/2 ML VIAL IV STA (19:29)
[2020-07-04] MEDS ORDERED: methylPREDNISolone SOD SUCCI 125 MG/2 ML VIAL IV STA (19:30)
[2020-07-04] MEDS ORDERED: cefTRIAXone IN SWFI 1,000 MG/10 ML SYRINGE IVP STA (20:03)
--- NOTE | 2020-07-04 20:36 | ED ---
Dizziness HPI <AaronSrini - Last Filed: 07/04/20 21:53> - General Source: patient, family Mode of arrival: ambulatory Limitations: no limitations <Micaela De Guzman - Last Filed: 07/04/20 21:57> - General Chief Complaint: Dizziness Stated Complaint: low blood pressure Time Seen by Provider: 07/04/20 17:41 - History of Present Illness Initial Comments: 80-year-old female with hx of CAD, parkinsons disease on sinment presents emergency right today for chief complaint of presyncope. Patient states the past day she has felt very dizzy and like she is going to pass out every time she goes to standup. Patient had a low blood pressure reading a multiple occasions in her neurologist's office. Patient states she is also felt short of breath for the past 2 weeks on and off. She states it occurs at random times. Patient denies any chest pain pressure she denies any pain deep breath she denies hemoptysis leg swelling calf pain. Patient denies immobilization. Patient has a fevers cough congestion. Patient denies falls or actual syncopal episodes. Neurologist was concerned when patient had 3 low blood pressures even with recheck with manual consent patient's emergency department for cardiac evaluation. Remaining review systems negative upon arrival patient appears nontoxic distress (Micaela De Guzman) - Related Data Home Medications Medication Instructions Recorded Confirmed Aspirin EC [Ecotrin] 325 mg PO DAILY 01/22/15 07/04/20 Carbidopa-Levodopa 25-100 mg 1 tab PO BID 01/04/19 07/04/20 [Sinemet 25-100 mg] Carbidopa-Levodopa ER 50-200Mg 1 tab PO TID@0800,1200,1800 07/04/20 07/04/20 [Sinemet ER 50-200] Cbd Oil 50mg 50 mg PO DAILY PRN 07/04/20 07/04/20 Cholecalciferol (Vitamin D3) 250 mcg PO DAILY 07/04/20 07/04/20 [Vitamin D3 (5000 Iu)] Ezetimibe [Zetia] 10 mg PO DAILY 07/04/20 07/04/20 Ginkgo Biloba 240mg 240 mg PO DAILY 07/04/20 07/04/20 Hydroxyurea [Hydrea] 1,000 mg PO SUSA 07/04/20 07/04/20 Hydroxyurea [Hydrea] 500 mg PO MOTUWETHFR 07/04/20 07/04/20 Krill Oil 500 mg PO DAILY 07/04/20 07/04/20 Ubidecarenone [Co Q-10] 100 mg PO DAILY 07/04/20 07/04/20 Allergies Allergy/AdvReac Type Severity Reaction Status Date / Time adhesive Allergy Rash/Hives Verified 07/04/20 18:42 shellfish derived [Shellfish] AdvReac Nausea & Verified 07/04/20 18:42 Vomiting & Diarrhea Review of Systems ROS Other: All systems not noted in ROS Statement are negative. <Srini Walker - Last Filed: 07/04/20 21:53> ROS Other: All systems not noted in ROS Statement are negative. <Micaela De Gzuman - Last Filed: 07/04/20 21:57> ROS Statement: Those systems with pertinent positive or pertinent negative responses have been documented in the HPI. Past Medical History Past Medical History: Blood Disorder, Coronary Artery Disease (CAD), GERD/Reflux, Myocardial Infarction (DC), Musculoskeletal Disorder, Neurologic Disorder, Osteoarthritis (OA) Additional Past Medical History / Comment(s): Parkinson's disease, thrombocythemia, macular degeneration, Last Myocardial Infarction Date:: 2012 History of Any Multi-Drug Resistant Organisms: None Reported Past Surgical History: Heart Catheterization, Heart Catheterization With Stent, Tonsillectomy, Tubal Ligation Additional Past Surgical History / Comment(s): 2003 PCI with 2 stents, 2009 PCI with 1 stent, 2012 cardiac cath-treat medically, bilateral cataract removals/lens implants, Past Anesthesia/Blood Transfusion Reactions: No Reported Reaction Additional Past Anesthesia/Blood Transfusion Reaction / Comment(s): Pt has never had. Date of Last Stent Placement:: 2009 Past Psychological History: No Psychological Hx Reported Smoking Status: Former smoker Past Alcohol Use History: None Reported Past Drug Use History: None Reported - Past Family History Father Family Medical History: Cancer Additional Family Medical History / Comment(s): Father had prostate cancer. Mother Family Medical History: Chest Pain / Angina, Coronary Artery Disease (CAD) <Micaela De Guzman - Last Filed: 07/04/20 21:57> General Exam Limitations: no limitations <Micaela De Guzman - Last Filed: 07/04/20 21:57> - General Exam Comments Initial Comments: General: The patient is awake and alert, in no distress Eye: +3 mm pupils are equal, round and reactive to light, extra-ocular movements are intact. No nystagmus. There is normal conjunctiva bilaterally. No signs of icterus. Ears, nose, mouth and throat: There are moist mucous membranes and no oral lesions. Neck: The neck is supple, there is no tenderness or JVD. Cardiovascular: There is a regular rate and rhythm. No murmur, rub or gallop is appreciated. Respiratory: Lungs are clear to auscultation, respirations are non-labored, breath sounds are equal. No wheezes, stridor, rales, or rhonchi. Gastrointestinal: Soft, non-distended, non-tender abdomen without masses or organomegaly noted. There is no rebound or guarding present. Musculoskeletal: Normal ROM, no tenderness. Strength 5/5. Sensation intact. Radial and DP pulses equal bilaterally 2+. Neurological: A&O x 3. CN II-XII intact, There are no obvious motor or sensory deficits. Coordination appears grossly intact. Speech is normal. Skin: Skin is warm and dry and no rashes or lesions are noted. No calf pain or LE edema. Psychiatric: Cooperative, appropriate mood & affect, normal judgment. (Micaela De Guzman) Course Vital Signs 07/04/20 07/04/20 16:59 19:06 Temperature 97.6 F Pulse Rate 67 Pulse Rate [ 73 Sitting [employer]] Pulse Rate [ 91 Standing] Pulse Rate [ 65 Supine [employer]] Respiratory 18 18 Rate Blood Pressure 117/62 Blood Pressure 154/85 [Sitting] Blood Pressure 109/77 [Standing] Blood Pressure 151/86 [Supine] O2 Sat by Pulse 97 Oximetry Medical Decision Making - Lab Data Result diagrams: 07/04/20 18:29 07/04/20 18:29 <Srini Walker - Last Filed: 07/04/20 21:53> - Lab Data Result diagrams: 07/04/20 18:29 07/04/20 18:29 <Micaela De Guzman - Last Filed: 07/04/20 21:57> - Medical Decision Making Patient reexamined and reevaluated by myself, Dr. Walker. I agree with the findings. This includes diagnostic interpretation and treatment plan. Patient is having orthostatic symptoms over the past 4 days. Patient remains with symptoms in the emergency department. Patient and family updated. Case discussed with Dr. Rothman, who will admit covering for Dr. Coats. (Srini Walker) 80-year-old female presenting for presyncope especially going from sitting to standing. Patient has significant orthostatic hypotension. Patient is on carbidopa levodopa-which has side effect of orthostatic hypotension. This medication however is not new. Patient is very symptomatic when she goes from sitting standing as well she is presyncopal. CTA no pulmonary embolism. Troponin negative EKG no acute findings. Chest x-ray no acute findings. BMP within acceptable limits. Patient was hydrated L be admitted for further cardiac evaluation. Dr. Walker with I patient is agreeable to this care plan as well as admission at this time. Ventricular rate 65 bpm, OH interval 138 ms, QRS durations 84 ms, QT/QTC 404/420 ms. This is normal sinus no ST elevation or depression appreciated. (Micaela De Guzman) - Lab Data Lab Results 07/04/20 07/04/20 07/04/20 Range/Units 18:29 18:29 18:29 WBC 5.5 (3.8-10.6) k/uL RBC 3.51 L (3.80-5.40) m/uL Hgb 12.5 (11.4-16.0) gm/dL Hct 38.7 (34.0-46.0) % MCV 110.4 H (80.0-100.0) fL MCH 35.8 H (25.0-35.0) pg MCHC 32.4 (31.0-37.0) g/dL RDW 13.7 (11.5-15.5) % Plt Count 333 (150-450) k/uL MPV 7.7 Neutrophils % 61 % Lymphocytes % 29 % Monocytes % 5 % Eosinophils % 2 % Basophils % 1 % Neutrophils # 3.3 (1.3-7.7) k/uL Lymphocytes # 1.6 (1.0-4.8) k/uL Monocytes # 0.3 (0-1.0) k/uL Eosinophils # 0.1 (0-0.7) k/uL Basophils # 0.1 (0-0.2) k/uL Manual Slide Review Performed Macrocytosis Marked A PT 10.4 (9.0-12.0) sec INR 1.0 (<1.2) APTT 22.2 (22.0-30.0) sec D-Dimer 1.41 H (<0.60) mg/L FEU Sodium 134 L (137-145) mmol/L Potassium 5.5 H (3.5-5.1) mmol/L Chloride 103 (98-107) mmol/L Carbon Dioxide 26 (22-30) mmol/L Anion Gap 5 mmol/L BUN 27 H (7-17) mg/dL Creatinine 0.58 (0.52-1.04) mg/dL Est GFR (CKD-EPI)AfAm >90 (>60 ml/min/1.73 sqM) Est GFR (CKD-EPI)NonAf 88 (>60 ml/min/1.73 sqM) Glucose 92 (74-99) mg/dL Plasma Lactic Acid Fuentes (0.7-2.0) mmol/L Calcium 8.8 (8.4-10.2) mg/dL Total Bilirubin 0.8 (0.2-1.3) mg/dL AST 40 H (14-36) U/L ALT <6 (4-34) U/L Alkaline Phosphatase 71 (38-126) U/L Troponin I (0.000-0.034) ng/mL NT-Pro-B Natriuret Pep pg/mL Total Protein 7.1 (6.3-8.2) g/dL Albumin 3.9 (3.5-5.0) g/dL Urine Color Urine Appearance (Clear) Urine pH (5.0-8.0) Ur Specific Linden (1.001-1.035) Urine Protein (Negative) Urine Glucose (UA) (Negative) Urine Ketones (Negative) Urine Blood (Negative) Urine Nitrite (Negative) Urine Bilirubin (Negative) Urine Urobilinogen (<2.0) mg/dL Ur Leukocyte Esterase (Negative) Urine WBC (0-5) /hpf Ur Squamous Epith Cells (0-4) /hpf Urine Bacteria (None) /hpf Urine Mucus (None) /hpf 07/04/20 07/04/20 07/04/20 Range/Units 18:29 18:29 18:29 WBC (3.8-10.6) k/uL RBC (3.80-5.40) m/uL Hgb (11.4-16.0) gm/dL Hct (34.0-46.0) % MCV (80.0-100.0) fL MCH (25.0-35.0) pg MCHC (31.0-37.0) g/dL RDW (11.5-15.5) % Plt Count (150-450) k/uL MPV Neutrophils % % Lymphocytes % % Monocytes % % Eosinophils % % Basophils % % Neutrophils # (1.3-7.7) k/uL Lymphocytes # (1.0-4.8) k/uL Monocytes # (0-1.0) k/uL Eosinophils # (0-0.7) k/uL Basophils # (0-0.2) k/uL Manual Slide Review Macrocytosis PT (9.0-12.0) sec INR (<1.2) APTT (22.0-30.0) sec D-Dimer (<0.60) mg/L FEU Sodium (137-145) mmol/L Potassium (3.5-5.1) mmol/L Chloride (98-107) mmol/L Carbon Dioxide (22-30) mmol/L Anion Gap mmol/L BUN (7-17) mg/dL Creatinine (0.52-1.04) mg/dL Est GFR (CKD-EPI)AfAm (>60 ml/min/1.73 sqM) Est GFR (CKD-EPI)NonAf (>60 ml/min/1.73 sqM) Glucose (74-99) mg/dL Plasma Lactic Acid Fuentes 0.8 (0.7-2.0) mmol/L Calcium (8.4-10.2) mg/dL Total Bilirubin (0.2-1.3) mg/dL AST (14-36) U/L ALT (4-34) U/L Alkaline Phosphatase (38-126) U/L Troponin I <0.012 (0.000-0.034) ng/mL NT-Pro-B Natriuret Pep 296 pg/mL Total Protein (6.3-8.2) g/dL Albumin (3.5-5.0) g/dL Urine Color Urine Appearance (Clear) Urine pH (5.0-8.0) Ur Specific Linden (1.001-1.035) Urine Protein (Negative) Urine Glucose (UA) (Negative) Urine Ketones (Negative) Urine Blood (Negative) Urine Nitrite (Negative) Urine Bilirubin (Negative) Urine Urobilinogen (<2.0) mg/dL Ur Leukocyte Esterase (Negative) Urine WBC (0-5) /hpf Ur Squamous Epith Cells (0-4) /hpf Urine Bacteria (None) /hpf Urine Mucus (None) /hpf 07/04/20 Range/Units 18:54 WBC (3.8-10.6) k/uL RBC (3.80-5.40) m/uL Hgb (11.4-16.0) gm/dL Hct (34.0-46.0) % MCV (80.0-100.0) fL MCH (25.0-35.0) pg MCHC (31.0-37.0) g/dL RDW (11.5-15.5) % Plt Count (150-450) k/uL MPV Neutrophils % % Lymphocytes % % Monocytes % % Eosinophils % % Basophils % % Neutrophils # (1.3-7.7) k/uL Lymphocytes # (1.0-4.8) k/uL Monocytes # (0-1.0) k/uL Eosinophils # (0-0.7) k/uL Basophils # (0-0.2) k/uL Manual Slide Review Macrocytosis PT (9.0-12.0) sec INR (<1.2) APTT (22.0-30.0) sec D-Dimer (<0.60) mg/L FEU Sodium (137-145) mmol/L Potassium (3.5-5.1) mmol/L Chloride (98-107) mmol/L Carbon Dioxide (22-30) mmol/L Anion Gap mmol/L BUN (7-17) mg/dL Creatinine (0.52-1.04) mg/dL Est GFR (CKD-EPI)AfAm (>60 ml/min/1.73 sqM) Est GFR (CKD-EPI)NonAf (>60 ml/min/1.73 sqM) Glucose (74-99) mg/dL Plasma Lactic Acid Fuentes (0.7-2.0) mmol/L Calcium (8.4-10.2) mg/dL Total Bilirubin (0.2-1.3) mg/dL AST (14-36) U/L ALT (4-34) U/L Alkaline Phosphatase (38-126) U/L Troponin I (0.000-0.034) ng/mL NT-Pro-B Natriuret Pep pg/mL Total Protein (6.3-8.2) g/dL Albumin (3.5-5.0) g/dL Urine Color Yellow Urine Appearance Clear (Clear) Urine pH 5.5 (5.0-8.0) Ur Specific Linden 1.014 (1.001-1.035) Urine Protein Negative (Negative) Urine Glucose (UA) Negative (Negative) Urine Ketones Negative (Negative) Urine Blood Negative (Negative) Urine Nitrite Negative (Negative) Urine Bilirubin Negative (Negative) Urine Urobilinogen <2.0 (<2.0) mg/dL Ur Leukocyte Esterase Large H (Negative) Urine WBC 6 H (0-5) /hpf Ur Squamous Epith Cells 2 (0-4) /hpf Urine Bacteria Rare H (None) /hpf Urine Mucus Occasional H (None) /hpf Disposition <Srini Walker - Last Filed: 07/04/20 21:53> Is patient prescribed a controlled substance at d/c from ED?: No Time of Disposition: 21:57 Decision to Admit Reason: Admit from EC Decision Date: 07/04/20 Decision Time: 21:57 <Micaela De Guzman - Last Filed: 07/04/20 21:57> Clinical Impression: Orthostatic hypotension, Pre-syncope Disposition: ADMITTED IP TO THIS [facility] Condition: Stable Referrals: Ky Coats MD [Primary Care Provider] - 1-2 days
--- NOTE | 2020-07-04 21:02 | CT ---
EXAMINATION TYPE: CT chest angio for PE DATE OF EXAM: 07/04/2020 COMPARISON: Same day chest x-ray. HISTORY: elevated d-dimer, dyspnea CT DLP: 207 mGycm Automated exposure control for dose reduction was used. CONTRAST: CT Chest for pulmonary embolism performed with with IV Contrast, patient injected with 370 mL of Isov ue 370. FINDINGS: LUNGS: Exam suboptimal as patient unable to hold breath. This limits evaluation for tiny opacities an d subcentimeter nodules. Mild chronic parenchymal changes without suspicious focal ground glass opaci ty or consolidation. No pleural effusion or pneumothorax seen bilaterally. MEDIASTINUM: There is satisfactory enhancement of the pulmonary artery and its branches, there is no CT evidence for pulmonary embolism. There are no greater than 1 cm hilar or mediastinal lymph nodes. No cardiomegaly or pericardial effusion is seen. Satisfactory enhancement of the aorta with 3.9 c m borderline aneurysm of ascending aorta. No aortic dissection. OTHER: Exaggerated thoracic kyphosis with moderate to severe chronic compression type fracture at T8 level. IMPRESSION: No CT evidence for acute pulmonary embolism. No suspicious acute pulmonary process.
[2020-07-04] MEDS ORDERED: NALOXONE 0.4 MG/ML 1 ML VIAL IV PRN (21:57)
[2020-07-05] MEDS: ASPIRIN 325 MG TAB PO SCH (10:35)
[2020-07-05] MEDS: HYDROXYUREA 500 MG CAP PO SCH (10:35)
[2020-07-05] MEDS: CARBIDOPA-LEVODOPA 25-100 MG 1 EACH TAB PO SCH ×2 (10:35→20:07)
[2020-07-05] MEDS: CARBIDOPA-LEVODOPA ER 50-200MG 1 EACH TABLET.ER PO SCH ×2 (12:44→17:55)
--- NOTE | 2020-07-05 12:58 | P.HPIM ---
History of Present Illness H&P Date: 07/05/20 Chief Complaint: Dizziness HISTORY OF PRESENT ILLNESS This is a 80-year-old female patient of Dr. Coats with past medical history of CAD status post PCI and stent placement 2, history of Parkinson's disease, thrombocytosis under the care of oncology on Hydrea. Patient follows with Dr. Raymundo for Parkinson's and was in the office yesterday and was experiencing dizziness was found to have a low blood pressure of 80/50. She drinks half a bottle of water and her blood pressure remained at 86/58. She was then sent to [facility] form admission. Patient states that she has had some shortness of breath with minimal movement such as changing positions. Daughter states that she is not eating or drinking very much. Viktoria torres typically does not drink very much water. Patient states that she has had 4 nights waking up with dizziness. She denies any shortness of breath or dizziness at the time of this evaluation. Patient presented to [facility] emergency center. Patient was afebrile, heart rate 67, blood pressure 117/62, pulse ox 97% on room air. Orthostatic vital signs were positive. EKG was in normal sinus rhythm with no acute ST changes. W BC 5.5, hemoglobin 12.5, platelet count 333. D-dimer 1.41. CTA showed no pulmonary embolism. No acute pulmonary process. Compression fracture T8 which is chronic. Sodium 134, potassium 5.5, chloride 103, CO2 26, BUN 27 and creatinine 0.58. TSH 1.160. ProBNP 296. Troponin negative. Lactic acid 0.8. Total bilirubin 0.8 and AST 40. Analysis clear with leukoesterase large, WBC 6. Coronavirus PCR not detected. REVIEW OF SYSTEMS Constitutional: No fever, no chills, no night sweats. No weight change. No weakness, fatigue or lethargy. No daytime sleepiness. EENT: No headache. No blurred vision or double vision, no loss of vision. No loss of Hearing, no ringing in the ears, no dizziness. No nasal drainage or congestion. No epistaxis. No sore throat. Lungs: No shortness of breath, cough, no sputum production. No wheezing. Reports dyspnea with exertion. Cardiovascular: No chest pain, no lower extremity edema. No palpitations. No paroxysmal nocturnal dyspnea. No orthopnea. Reports dizziness. No syncopal episodes. Abdominal: No abdominal pain. No nausea, vomiting. No diarrhea. No consti pation. No bloody or tarry stools.. No loss of appetite. Genitourinary: No dysuria, increased frequency, urgency. No urinary retention. Musculoskeletal: No myalgias. No muscle weakness, no gait dysfunction, no frequent falls. No back pain. No neck pain. Integumentary: No wounds, no lesions. No rash or pruritus. No unusual bruising. No change in hair or nails. Neurologic: No aphasia. No facial droop. No change in mentation. No head injury. No headache. No paralysis. No paresthesia. Psychiatric: No depression. No anxiety. No mood swings. Endocrine: No abnormal blood sugars. No weight change. No excessive sweating or thirst. No cold intolerance. SOCIAL HISTORY Patient was a smoker for 44 years and quit in 2003. No illicit drug use or alcohol use. Patient lives alone and her daughter as well as a friend check on her frequently. FAMILY HISTORY Mother is with history of coronary artery disease. Father from p rostate cancer. Patient has 6 brothers and all have passed. One from some type of cancer 3 from coronary artery disease. Patient has one sister this past with coronary artery disease. Patient has 3 children, 2 daughters with Parvez's and one daughter also with anxiety. She has one son with no major medical problems. PHYSICAL EXAMINATION Gen: This is an 80-year-old frail-appearing female. Patient is resting in bed and daughters at bedside. Patient appears to be in no acute distress. HEENT: Head is atraumatic, normocephalic. Pupils equal, round. Sclerae is anicteric. NECK: Supple. No JVD. No lymphadenopathy. No thyromegaly. LUNGS: Clear to auscultation. No wheezes or rhonchi. No intercostal retractions. HEART: Regular rate and rhythm. No murmur. ABDOMEN: Soft. Bowel sounds are present. No masses. No tenderness. EXTREMITIES: No pedal edema. No calf tenderness. NEUROLOGICAL: Patient is awake, alert and oriented x3. Cranial nerves 2 through 12 are grossly intact. ASSESSMENT AND PLAN 1. Dizziness and hypotension most likely secondary to orthostatic hypotension and dehydration possible autonomic hypotension. Recheck orthostatics. PT and OT consults. Echocardiogram. 2. Parkinson's disease. Continue Sinemet at home dose. Patient follows with Dr. Raymundo. 3. Thrombocytosis. Patient follows with oncology. Continue Hydrea 500 mg oral on Friday - Friday, 1000 mg on Friday and Friday. 4. History of coronary artery disease status post PCI and stent placement. Tinea aspirin 325 mg daily. 5. History of hypertension. 6. Dyslipidemia. Hold Zetia for now. 7. GI prophylaxis. Protonix 8. DVT prophylaxis. Heparin subcu. Patient will be admitted to the hospital for a minimum of 2 night stay. DISCHARGE PLAN Most likely turn home. PT and OT consults. Impression and plan of care have been directed as dictated by the signing physician. Linda Baxter nurse practitioner acting as scribe for signing physician. Past Medical History Past Medical History: Blood Disorder, Coronary Artery Disease (CAD), GERD/Reflux, Myocardial Infarction (LA), Musculoskeletal Disorder, Neurologic Disorder, Osteoarthritis (OA) Additional Past Medical History / Comment(s): Parkinson's disease, thrombocythemia,macular degeneration Last Myocardial Infarction Date:: 2012 History of Any Multi-Drug Resistant Organisms: None Reported Past Surgical History: Heart Catheterization, Heart Catheterization With Stent, Tonsillectomy, Tubal Ligation Additional Past Surgical History / Comment(s): 2003 PCI with 2 stents, 2009 PCI with 1 stent, 2012 cardiac cath-treat medically, bilateral cataract removals/lens implants, Past Anesthesia/Blood Transfusion Reactions: No Reported Reaction Additional Past Anesthesia/Blood Transfusion Reaction / Comment(s): Pt has never had. Date of Last Stent Placement:: 2009 Past Psychological History: No Psychological Hx Reported Additional Psychological History / Comment(s): Pt resides alone. She uses a 4 pronged cane to ambulate. She no longer drives, her family or friends take her to appts. Her coco manages her medications. Smoking Status: Former smoker Past Alcohol Use History: None Reported Additional Past Alcohol Use History / Comment(s): Patient was a smoker for 44 years and quit in 2003. No illicit drug use, no alcohol use. Past Drug Use History: None Reported - Past Family History Father Family Medical History: Cancer Additional Family Medical History / Comment(s): Father had prostate cancer. Mother Family Medical History: Chest Pain / Angina, Coronary Artery Disease (CAD) Medications and Allergies Home Medications Medication Instructions Recorded Confirmed Type Aspirin EC [Ecotrin] 325 mg PO DAILY 01/22/15 07/04/20 History Carbidopa-Levodopa 25-100 mg 1 tab PO BID 01/04/19 07/04/20 History [Sinemet 25-100 mg] Carbidopa-Levodopa ER 50-200Mg 1 tab PO TID@0800,1200,1800 07/04/20 07/04/20 History [Sinemet ER 50-200] Cbd Oil 50mg 50 mg PO DAILY PRN 07/04/20 07/04/20 History Cholecalciferol (Vitamin D3) 250 mcg PO DAILY 07/04/20 07/04/20 History [Vitamin D3 (5000 Iu)] Ezetimibe [Zetia] 10 mg PO DAILY 07/04/20 07/04/20 History Ginkgo Biloba 240mg 240 mg PO DAILY 07/04/20 07/04/20 History Hydroxyurea [Hydrea] 1,000 mg PO SUSA 07/04/20 07/04/20 History Hydroxyurea [Hydrea] 500 mg PO MOTUWETHFR 07/04/20 07/04/20 History Krill Oil 500 mg PO DAILY 07/04/20 07/04/20 History Ubidecarenone [Co Q-10] 100 mg PO DAILY 07/04/20 07/04/20 History Allergies Allergy/AdvReac Type Severity Reaction Status Date / Time adhesive Allergy Rash/Hives Verified 07/04/20 18:42 shellfish derived [Shellfish] AdvReac Nausea & Verified 07/04/20 18:42 Vomiting & Diarrhea Physical Exam Vitals: Vital Signs Temp Pulse Pulse Pulse Pulse Resp BP 07/05/20 08:00 98.3 F 102 H 20 07/05/20 07:38 07/05/20 03:43 97.6 F 102 H 16 07/05/20 02:07 16 07/04/20 23:13 98.0 F 89 16 07/04/20 23:04 97.2 F L 78 18 130/77 07/04/20 22:00 76 18 136/78 07/04/20 19:06 73 91 65 18 07/04/20 16:59 97.6 F 67 18 117/62 BP BP BP Pulse Ox 07/05/20 08:00 162/88 97 07/05/20 07:38 96 07/05/20 03:43 136/79 97 07/05/20 02:07 07/04/20 23:13 163/90 07/04/20 23:04 98 07/04/20 22:00 98 07/04/20 19:06 154/85 109/77 151/86 07/04/20 16:59 97 Intake and Output 07/04/20 07/05/20 07/05/20 22:59 06:59 14:59 Intake Total 1240 Output Total 650 Balance 590 Intake: Intake, IV Titration 1000 Amount Sodium Chloride 0.9% 500 1000 ml 500 ml @ 999 mls/hr IV .Q31M STA Rx#:[id number] Oral 240 Output: Urine 650 Other: Voiding Method Bedpan # Voids 1 1 # Bowel Movements 1 Weight 46.266 kg 40 kg Results CBC & Chem 7: 07/04/20 18:29 07/04/20 18:29 Labs: Abnormal Lab Results - Last 24 Hours (Table) 07/04/20 07/04/20 07/04/20 Range/Units 18:29 18:29 18:29 RBC 3.51 L (3.80-5.40) m/uL MCV 110.4 H (80.0-100.0) fL MCH 35.8 H (25.0-35.0) pg Macrocytosis Marked A D-Dimer 1.41 H (<0.60) mg/L FEU Sodium 134 L (137-145) mmol/L Potassium 5.5 H (3.5-5.1) mmol/L BUN 27 H (7-17) mg/dL AST 40 H (14-36) U/L Ur Leukocyte Esterase (Negative) Urine WBC (0-5) /hpf Urine Bacteria (None) /hpf Urine Mucus (None) /hpf 07/04/20 Range/Units 18:54 RBC (3.80-5.40) m/uL MCV (80.0-100.0) fL MCH (25.0-35.0) pg Macrocytosis D-Dimer (<0.60) mg/L FEU Sodium (137-145) mmol/L Potassium (3.5-5.1) mmol/L BUN (7-17) mg/dL AST (14-36) U/L Ur Leukocyte Esterase Large H (Negative) Urine WBC 6 H (0-5) /hpf Urine Bacteria Rare H (None) /hpf Urine Mucus Occasional H (None) /hpf
--- NOTE | 2020-07-05 20:07 | ECHOF ---
Referral Reason:LVF MEASUREMENTS -------- HEIGHT: 129.5 cm WEIGHT: 39.9 kg BP: RVIDd: 2.0 cm (< 3.3) IVSd: 1.0 cm (0.6 - 1.1) LVIDd: 3.7 cm (3.9 - 5.3) LVPWd: 1.2 cm (0.6 - 1.1) IVSs: 1.5 cm LVIDs: 2.4 cm LVPWs: 1.8 cm LAESV Index (A-L): 28.63 ml/m Ao Diam: 2.3 cm (2.0 - 3.7) AV Cusp: 1.5 cm (1.5 - 2.6) LA Diam: 3.5 cm (2.7 - 3.8) MV EXCURSION: 18.395 mm (> 18.000) MV EF SLOPE: 113 mm/s (70 - 150) EPSS: 0.3 cm MV E Cayetano: 1.04 m/s MV DecT: 155 ms MV A [place]: 1.29 m/s MV E/A Ratio: 0.80 AR PHT: 448 ms RAP: 5.00 mmHg RVSP: 13.45 mmHg FINDINGS -------- Sinus rhythm. This was a technically adequate study. The left ventricular size is normal. Left ventricular wall thickness is normal. Overall left vent ricular systolic function is normal with, an EF between 55 - 60 %. Normal LAP Grade 1 Diastolic Dy sfunction. The right ventricle is normal in size. Normal LA size by volume 22+/-6 ml/m2. The right atrial size is normal. The aortic valve is trileaflet and appears structurally normal. There is mild aortic regurgitation. The mitral valve is normal. Moderate mitral regurgitation is present. The tricuspid valve appears structurally normal. Mild tricuspid regurgitation present. Right vent ricular systolic pressure is normal at < 35 mmHg. There is no pulmonic regurgitation present. The aortic root size is normal. Normal inferior vena cava with normal inspiratory collapse consistent with estimated right atrial pre ssure of 5 mmHg. There is no pericardial effusion. CONCLUSIONS -------- 1. Left ventricular wall thickness is normal. 2. Overall left ventricular systolic function is normal with, an EF between 55 - 60 %. 3. Normal LAP Grade 1 Diastolic Dysfunction. 4. Normal LA size by volume 22+/-6 ml/m2. 5. There is mild aortic regurgitation. 6. Moderate mitral regurgitation is present. 7. Mild tricuspid regurgitation present. 8. There is no pericardial effusion. GAS WORKER: Keyla Cisneros RDCS
[2020-07-06] MEDS: CARBIDOPA-LEVODOPA 25-100 MG 1 EACH TAB PO SCH ×2 (09:45→20:06)
[2020-07-06] MEDS: CHOLECALCIFEROL 25 MCG (1000 IU) TABLET PO SCH (09:45)
[2020-07-06] MEDS: CARBIDOPA-LEVODOPA ER 50-200MG 1 EACH TABLET.ER PO SCH ×3 (09:45→18:24)
[2020-07-06] MEDS: ASPIRIN 325 MG TAB PO SCH (09:45)
[2020-07-06] MEDS: HYDROXYUREA 500 MG CAP PO SCH (09:46)
--- NOTE | 2020-07-06 10:02 | P.DS ---
Providers Date of admission: 07/04/20 21:12 Expected date of discharge: 07/06/20 Attending physician: Ky Coats Primary care physician: [facility] Course: HISTORY OF PRESENT ILLNESS This is a 80-year-old female patient of Dr. Coats with past medical history of CAD status post PCI and stent placement 2, history of Parkinson's disease, thrombocytosis under the care of oncology on Hydrea. Patient follows with Dr. Raymundo for Parkinson's and was in the office yesterday and was experiencing dizziness was found to have a low blood pressure of 80/50. She drinks half a bottle of water and her blood pressure remained at 86/58. She was then sent to [facility] form admission. Patient states that she has had some shortness of breath with minimal movement such as changing posi tions. Daughter states that she is not eating or drinking very much. Patient typically does not drink very much water. Patient states that she has had 4 nights waking up with dizziness. She denies any shortness of breath or dizziness at the time of this evaluation. Patient presented to [facility] emergency center. Patient was afebrile, heart rate 67, blood pressure 117/62, pulse ox 97% on room air. Orthostatic vital signs were positive. EKG was in normal sinus rhythm with no acute ST changes. W BC 5.5, hemoglobin 12.5, platelet count 333. D-dimer 1.41. CTA showed no pulmonary embolism. No acute pulmonary process. Compression fracture T8 which is chronic. Sodium 134, potassium 5.5, chloride 103, CO2 26, BUN 27 and creatinine 0.58. TSH 1.160. ProBNP 296. Troponin negative. Lactic acid 0.8. Total bilirubin 0.8 and AST 40. Analysis clear with leukoesterase large, WBC 6. Coronavirus PCR not detected. REVIEW OF SYSTEMS Constitutional: No fever, no chills, no night sweats. No weight change. No weakness, fatigue or lethargy. No daytime sleepiness. EENT: No headache. No blurred vision or double vision, no loss of vision. No loss of Hearing, no ringing in the ears, no dizziness. No nasal drainage or congestion. No epistaxis. No sore throat. Lungs: No shortness of breath, cough, no sputum production. No wheezing. Re ports dyspnea with exertion. Cardiovascular: No chest pain, no lower extremity edema. No palpitations. No paroxysmal nocturnal dyspnea. No orthopnea. Reports dizziness. No syncopal episodes. Abdominal: No abdominal pain. No nausea, vomiting. No diarrhea. No constipation. No bloody or tarry stools.. No loss of appetite. Genitourinary: No dysuria, increased frequency, urgency. No urinary retention. Musculoskeletal: No myalgias. No muscle weakness, no gait dysfunction, no frequent falls. No back pain. No neck pain. Integumentary: No wounds, no lesions. No rash or pruritus. No unusual bruising. No change in hair or nails. Neurologic: No aphasia. No facial droop. No change in mentation. No head injury. No headache. No paralysis. No paresthesia. Psychiatric: No depression. No anxiety. No mood swings. Endocrine: No abnormal blood sugars. No weight change. No excessive sweating or thirst. No cold intolerance. SOCIAL HISTORY Patient was a smoker for 44 years and quit in 2003. No illicit drug use or alcohol use. Patient lives alone and her daughter as well as a friend check on her frequently. FAMILY HISTORY Mother is with history of coronary artery disease. Father from prostate cancer. Patient has 6 brothers and all have passed. One from some type of cancer 3 from coronary artery disease. Patient has one sister this past with coronary artery disease. Patient has 3 children, 2 daughters with Parvez's and one daughter also with anxiety. She has one son with no major medical problems. PHYSICAL EXAMINATION Gen: This is an 80-year-old frail-appearing female. Patient is resting in bed and daughters at bedside. Patient appears to be in no acute dis tress. HEENT: Head is atraumatic, normocephalic. Pupils equal, round. Sclerae is anicteric. NECK: Supple. No JVD. No lymphadenopathy. No thyromegaly. LUNGS: Clear to auscultation. No wheezes or rhonchi. No intercostal retractions. HEART: Regular rate and rhythm. No murmur. ABDOMEN: Soft. Bowel sounds are present. No masses. No tenderness. EXTREMITIES: No pedal edema. No calf tenderness. NEUROLOGICAL: Patient is awake, alert and oriented x3. Cranial nerves 2 through 12 are grossly intact. ASSESSMENT AND PLAN 1. Dizziness and hypotension most likely secondary to orthostatic hypotension and dehydration possible autonomic hypotension. Recheck orthostatics. PT and OT consults. Echocardiogram. 2. Parkinson's disease. Continue Sinemet at home dose. Patient follows with Dr. Raymundo. 3. Thrombocytosis. Patient follows with oncology. Continue Hydrea 500 mg oral on Friday - Friday, 1000 mg on Friday and Friday. 4. History of coronary artery disease status post PCI and stent placement. Tinea aspirin 325 mg daily. 5. History of hypertension. 6. Dyslipidemia. Hold Zetia for now. 7. GI prophylaxis. Protonix 8. DVT prophylaxis. Heparin subcu. Patient will be admitted to the hospital for a minimum of 2 night stay. DISCHARGE PLAN Most likely turn home. PT and OT consults. Impression and plan of care have been directed as dictated by the signing physician. Linda Baxter nurse practitioner acting as scribe for signing physician. Patient Condition at Discharge: Stable Plan - Discharge Summary Discharge Rx Participant: No New Discharge Prescriptions: Continue Aspirin EC [Ecotrin] 325 mg PO DAILY Carbidopa-Levodopa 25-100 mg [Sinemet 25-100 mg] 1 tab PO BID Ginkgo Biloba 240mg 240 mg PO DAILY Ubidecarenone [Co Q-10] 100 mg PO DAILY Ezetimibe [Zetia] 10 mg PO DAILY Carbidopa-Levodopa ER 50-200Mg [Sinemet CR 50-200 mg] 1 tab PO TID@0800,1200,1800 Cbd Oil 50mg 50 mg PO DAILY PRN PRN Reason: Pain Hydroxyurea [Hydrea] 500 mg PO MOTUWETHFR Hydroxyurea [Hydrea] 1,000 mg PO SUSA Cholecalciferol (Vitamin D3) [Vitamin D3 (5000 Iu)] 250 mcg PO DAILY Krill Oil 500 mg PO DAILY Discharge Medication List Aspirin EC [Ecotrin] 325 mg PO DAILY 01/22/15 [History] Carbidopa-Levodopa 25-100 mg [Sinemet 25-100 mg] 1 tab PO BID 01/04/19 [History] Carbidopa-Levodopa ER 50-200Mg [Sinemet CR 50-200 mg] 1 tab PO TID@0800,1200,1800 07/04/20 [History] Cbd Oil 50mg 50 mg PO DAILY PRN 07/04/20 [History] Cholecalciferol (Vitamin D3) [Vitamin D3 (5000 Iu)] 250 mcg PO DAILY 07/04/20 [History] Ezetimibe [Zetia] 10 mg PO DAILY 07/04/20 [History] Ginkgo Biloba 240mg 240 mg PO DAILY 07/04/20 [History] Hydroxyurea [Hydrea] 1,000 mg PO SUSA 07/04/20 [History] Hydroxyurea [Hydrea] 500 mg PO MOTUWETHFR 07/04/20 [History] Krill Oil 500 mg PO DAILY 07/04/20 [History] Ubidecarenone [Co Q-10] 100 mg PO DAILY 07/04/20 [History] Follow up Appointment(s)/Referral(s): Ky Coats MD [Primary Care Provider] - 1-2 days
[2020-07-06] MEDS ORDERED: SODIUM CHLORIDE 0.9% 1,000 ML IV ONE (10:19)
--- NOTE | 2020-07-06 13:54 | P.PN ---
Subjective Progress Note Date: 07/06/20 HISTORY OF PRESENT ILLNESS This is a 80-year-old female patient of Dr. Coats with past medical history of CAD status post PCI and stent placement 2, history of Parkinson's disease, thrombocytosis under the care of oncology on Hydrea. Patient follows with Dr. Raymundo for Parkinson's and was in the office yesterday and was experiencing dizziness was found to have a low blood pressure of 80/50. She drinks half a bottle of water and her blood pressure remained at 86/58. She was then sent to [facility] form admission. Patient states that she has had some shortness of breath with minimal movement such as changing positions. Daughter states that she is not eating or drinking very much. Patient typically does not drink very much water. Patient states that she has had 4 nights waking up with dizziness. She denies any shortness of breath or dizziness at the time of this evaluation. Patient presented to [facility] emergency center. Patient was afebrile, heart rate 67, blood pressure 117/62, pulse ox 97% on room air. Orthostatic vital signs were positive. EKG was in normal sinus rhythm with no acute ST changes. W BC 5.5, hemoglobin 12.5, platelet count 333. D-dimer 1.41. CTA showed no pulmonary embolism. No acute pulmonary process. Compression fracture T8 which is chronic. Sodium 134, potassium 5.5, chloride 103, CO2 26, BUN 27 and creatinine 0.58. TSH 1.160. ProBNP 296. Troponin negative. Lactic acid 0.8. Total bilirubin 0.8 and AST 40. Analysis clear with leukoesterase large, WBC 6. Coronavirus PCR not detected. 07/06: Patient is awake and alert and oriented 3 during evaluation but family concerned that she had some confusion on the phone. This morning, patient was prepared for discharge but she did have a 30 point drop in her blood pressure and 1 L of IV fluid ordered. PT and OT are following. Patient's daughter has been updated over the phone. Patient has been afebrile, heart rate 79, blood pressure 144/67, pulse ox 96% on room air. Her cardiogram reveals EF of 55-60%, mild aortic regurgitation, moderate mitral regurgitation, mild tricuspid regurgitation. REVIEW OF SYSTEMS Constitutional: No fever, no chills, no night sweats. No weight change. No we akness, fatigue or lethargy. No daytime sleepiness. EENT: No headache. No blurred vision or double vision, no loss of vision. No loss of Hearing, no ringing in the ears, no dizziness. No nasal drainage or congestion. No epistaxis. No sore throat. Lungs: No shortness of breath, cough, no sputum production. No wheezing. Reports dyspnea with exertion. Cardiovascular: No chest pain, no lower extremity edema. No palpitations. No paroxysmal nocturnal dyspnea. No orthopnea. Reports dizziness. No syncopal episodes. Abdominal: No abdominal pain. No nausea, vomiting. No diarrhea. No co nstipation. No bloody or tarry stools.. No loss of appetite. Genitourinary: No dysuria, increased frequency, urgency. No urinary retention. Musculoskeletal: No myalgias. No muscle weakness, no gait dysfunction, no frequent falls. No back pain. No neck pain. Integumentary: No wounds, no lesions. No rash or pruritus. No unusual bruising. No change in hair or nails. Neurologic: No aphasia. No facial droop. No change in mentation. No head injury. No headache. No paralysis. No paresthesia. Psychiatric: No depression. No anxiety. No mood swings. Endocrine: No abnormal blood sugars. No weight change. No excessive sweating or thirst. No cold intolerance. PHYSICAL EXAMINATION Gen: This is an 80-year-old frail-appearing female. Patient is resting in bed and daughters at bedside. Patient appears to be in no acute distress. HEENT: Head is atraumatic, normocephalic. Pupils equal, round. Sclerae is anicteric. NECK: Supple. No JVD. No lymphadenopathy. No thyromegaly. LUNGS: Clear to auscultation. No wheezes or rhonchi. No intercostal retracti ons. HEART: Regular rate and rhythm. No murmur. ABDOMEN: Soft. Bowel sounds are present. No masses. No tenderness. EXTREMITIES: No pedal edema. No calf tenderness. NEUROLOGICAL: Patient is awake, alert and oriented x3. Cranial nerves 2 through 12 are grossly intact. ASSESSMENT AND PLAN 1. Dizziness and hypotension most likely secondary to orthostatic hypotension and dehydration possible autonomic hypotension. Recheck orthostatics. PT and OT consults. Echocardiogram as above. 1 L of IV fluids today. 2. Parkinson's disease. Continue Sinemet at home dose. Patient follows with Dr. Raymundo. 3. Thrombocytosis. Patient follows with oncology. Continue Hydrea 500 mg oral on Friday - Friday, 1000 mg on Friday and Friday. 4. History of coronary artery disease status post PCI and stent placement. Tinea aspirin 325 mg daily. 5. History of hypertension. 6. Dyslipidemia. Hold Zetia for now. 7. GI prophylaxis. Protonix 8. DVT prophylaxis. Heparin subcu. DISCHARGE PLAN Return home at [facility]. PT and OT consults. Impression and plan of care have been directed as dictated by the signing physician. Linda Baxter nurse practitioner acting as scribe for signing physician. Objective - Vital Signs Vital signs: Vital Signs Temp 98.4 F 07/06/20 09:40 Pulse 68 07/06/20 09:40 Resp 18 07/06/20 09:40 BP 153/92 07/06/20 09:40 Pulse Ox 98 07/06/20 09:40 Intake & Output 07/05/20 07/06/20 07/06/20 18:59 06:59 18:59 Intake Total 1480 370 Output Total 850 Balance 630 370 Weight 45.677 kg 46.1 kg Intake: Intake, IV Titration 1000 Amount Sodium Chloride 0.9% 500 1000 ml 500 ml @ 999 mls/hr IV .Q31M STA Rx#:[id number] Oral 480 370 Output: Urine 850 Other: Voiding Method Bedside Commode Bedside Commode # Voids 3 # Bowel Movements 1 - Labs CBC & Chem 7: 07/04/20 18:29 07/04/20 18:29
[2020-07-07 07:18] LABS: ALT <6 U/L (4-34); AST 21 U/L (14-36); African American GFR (CKD) >90 (>60 ml/min/1.73 sqM); Alkaline Phosphatase 66 U/L (38-126); Anion Gap 1 mmol/L; Blood Urea Nitrogen 19 mg/dL (7-17); Calcium 8.8 mg/dL (8.4-10.2); Carbon Dioxide 31 mmol/L (22-30); Chloride 107 mmol/L (98-107); Glucose 89 mg/dL (74-99); Non-African American GFR(CKD) 84 (>60 ml/min/1.73 sqM); Potassium 4.3 mmol/L (3.5-5.1); Sodium 139 mmol/L (137-145); Total Bilirubin 0.6 mg/dL (0.2-1.3); Total Protein 5.7 g/dL (6.3-8.2)
[2020-07-07] MEDS: CHOLECALCIFEROL 25 MCG (1000 IU) TABLET PO SCH (09:43)
[2020-07-07] MEDS: CARBIDOPA-LEVODOPA 25-100 MG 1 EACH TAB PO SCH ×2 (09:43→19:51)
[2020-07-07] MEDS: ASPIRIN 325 MG TAB PO SCH (09:43)
[2020-07-07] MEDS: HYDROXYUREA 500 MG CAP PO SCH (09:44)
[2020-07-07] MEDS: CARBIDOPA-LEVODOPA ER 50-200MG 1 EACH TABLET.ER PO SCH ×3 (09:44→17:30)
[2020-07-07 11:46] VITALS: BMI 21.1
[2020-07-07] MEDS: MIDODRINE 5 MG TAB PO SCH ×2 (12:28→17:30)
--- NOTE | 2020-07-07 16:27 | P.PN ---
Subjective Progress Note Date: 07/07/20 HISTORY OF PRESENT ILLNESS This is a 80-year-old female patient of Dr. Coats with past medical history of CAD status post PCI and stent placement 2, history of Parkinson's disease, thrombocytosis under the care of oncology on Hydrea. Patient follows with Dr. Raymundo for Parkinson's and was in the office yesterday and was experiencing dizziness was found to have a low blood pressure of 80/50. She drinks half a bottle of water and her blood pressure remained at 86/58. She was then sent to [facility] form admission. Patient states that she has had some shortness of breath with minimal movement such as changing positions. Daughter states that she is not eating or drinking very much. Patient typically does not drink very much water. Patient states that she has had 4 nights waking up with dizziness. She denies any shortness of breath or dizziness at the time of this evaluation. Patient presented to [facility] emergency center. Patient was afebrile, heart rate 67, blood pressure 117/62, pulse ox 97% on room air. Orthostatic vital signs were positive. EKG was in normal sinus rhythm with no acute ST changes. W BC 5.5, hemoglobin 12.5, platelet count 333. D-dimer 1.41. CTA showed no pulmonary embolism. No acute pulmonary process. Compression fracture T8 which is chronic. Sodium 134, potassium 5.5, chloride 103, CO2 26, BUN 27 and creatinine 0.58. TSH 1.160. ProBNP 296. Troponin negative. Lactic acid 0.8. Total bilirubin 0.8 and AST 40. Analysis clear with leukoesterase large, WBC 6. Coronavirus PCR not detected. 07/06: Patient is awake and alert and oriented 3 during evaluation but family concerned that she had some confusion on the phone. This morning, patient was prepared for discharge but she did have a 30 point drop in her blood pressure and 1 L of IV fluid ordered. PT and OT are following. Patient's daughter has been updated over the phone. Patient has been afebrile, heart rate 79, blood pressure 144/67, pulse ox 96% on room air. Her cardiogram reveals EF of 55-60%, mild aortic regurgitation, moderate mitral regurgitation, mild tricuspid regurgitation. 07/07: Patient again had orthostatic changes of 30 points most likely related to autonomic dysfunction. Patient will be started on midodrine 5 mg 3 times daily. Patient is also been started on ceftriaxone for possible urinary tract infection but doubtful. Daughter relates that patient often has difficulty with some confusion when she has a urinary tract infection. Daughter feels that patient is slightly off but patient is oriented 3. She has been afebrile, heart rate 76, blood pressure 132/84, pulse ox 96% on room air. Repeat blood work reveals normal electrolytes except for CO2 of 31, BUN 19 and creatinine 0 .65. Liver function tests normal. Discharge plan is to return home dose likely tomorrow REVIEW OF SYSTEMS Constitutional: No fever, no chills, no night sweats. No weight change. No weakness, fatigue or lethargy. No daytime sleepiness. EENT: No headache. No blurred vision or double vision, no loss of vision. No loss of Hearing, no ringing in the ears, no dizziness. No nasal drainage or congestion. No epistaxis. No sore throat. Lungs: No shortness of breath, cough, no sputum production. No wheezing. Reports dyspnea with exertion. Cardiovascular: No chest pain, no lower extremity edema. No palpitations. No paroxysmal nocturnal dyspnea. No orthopnea. Reports dizziness. No syncopal episodes. Abdominal: No abdominal pain. No nausea, vomiting. No diarrhea. No constipation. No bloody or tarry stools.. No loss of appetite. Genitourinary: No dysuria, increased frequency, urgency. No urinary retention. Musculoskeletal: No myalgias. Reports muscle weakness, no gait dysfunction, no frequent falls. No back pain. No neck pain. Integumentary: No wounds, no lesions. No rash or pruritus. No unusual bruising. No change in hair or nails. Neurologic: No aphasia. No facial droop. No change in mentation. No head injury. No headache. No paralysis. No paresthesia. Psychiatric: No depression. No anxiety. No mood swings. Endocrine: No abnormal blood sugars. No weight change. No excessive sweating or thirst. No cold intolerance. PHYSICAL EXAMINATION Gen: This is an 80-year-old frail-appearing female. Patient is resting in a recliner and daughters at bedside. Patient appears to be in no acute distress. HEENT: Head is atraumatic, normocephalic. Pupils equal, round. Sclerae is anicteric. NECK: Supple. No JVD. No lymphadenopathy. No thyromegaly. LUNGS: Clear to auscultation. No wheezes or rhonchi. No intercostal retractions. HEART: Regular rate and rhythm. No murmur. ABDOMEN: Soft. Bowel sounds are present. No masses. No tenderness. EXTREMITIES: No pedal edema. No calf tenderness. NEUROLOGICAL: Patient is awake, alert and oriented x3. Cranial nerves 2 through 12 are grossly intact. ASSESSMENT AND PLAN 1. Dizziness and hypotension most likely secondary to a combination of orthostatic hypotension due to dehydration and autonomic hypotension. Recheck orthostatics. Echocardiogram as above. Status post IV fluids. Midodrine 5 mg 3 times daily added. 2. Parkinson's disease. Continue Sinemet at home dose. Patient follows with Dr. Raymundo. 3. Thrombocytosis. Patient follows with oncology. Continue Hydrea 500 mg oral on Friday - Friday, 1000 mg on Friday and Friday. 4. History of coronary artery disease status post PCI and stent placement. Tinea aspirin 325 mg daily. 5. History of hypertension. 6. Dyslipidemia. Hold Zetia for now. 7. GI prophylaxis. Protonix 8. DVT prophylaxis. Heparin subcu. DISCHARGE PLAN Return home at [facility] Friday. Impression and plan of care have been directed as dictated by the signing physician. Linda Baxter nurse practitioner acting as scribe for signing physician. Objective - Vital Signs Vital signs: Vital Signs Temp 98.1 F 07/07/20 04:00 Pulse 78 07/07/20 04:00 Resp 16 07/07/20 04:00 BP 126/74 07/07/20 04:00 Pulse Ox 97 07/07/20 04:00 Intake & Output 07/06/20 07/07/20 07/07/20 18:59 06:59 18:59 Intake Total 610 240 Balance 610 240 Weight 45.8 kg Intake: Oral 610 240 Other: Voiding Method Bedside Commode Bedside Commode # Voids 4 1 # Bowel Movements 1 - Labs CBC & Chem 7: 07/04/20 18:29 07/07/20 06:48 Labs: Abnormal Lab Results - Last 24 Hours (Table) 07/07/20 Range/Units 06:48 Carbon Dioxide 31 H (22-30) mmol/L BUN 19 H (7-17) mg/dL Total Protein 5.7 L (6.3-8.2) g/dL Albumin 3.0 L (3.5-5.0) g/dL
[2020-07-08] MEDS: MIDODRINE 5 MG TAB PO SCH ×3 (07:01→17:30)
[2020-07-08] MEDS: CHOLECALCIFEROL 25 MCG (1000 IU) TABLET PO SCH (08:23)
[2020-07-08] MEDS: CARBIDOPA-LEVODOPA ER 50-200MG 1 EACH TABLET.ER PO SCH ×3 (08:24→17:31)
[2020-07-08] MEDS: ASPIRIN 325 MG TAB PO SCH (08:24)
[2020-07-08] MEDS: CARBIDOPA-LEVODOPA 25-100 MG 1 EACH TAB PO SCH ×2 (08:24→20:18)
[2020-07-08] MEDS: HYDROXYUREA 500 MG CAP PO SCH (08:25)
[2020-07-08] MEDS ORDERED: SODIUM CHLORIDE 0.9% 1,000 ML IV ONE (11:40)
--- NOTE | 2020-07-08 13:42 | P.PN ---
Subjective Progress Note Date: 07/08/20 HISTORY OF PRESENT ILLNESS This is a 80-year-old female patient of Dr. Coats with past medical history of CAD status post PCI and stent placement 2, history of Parkinson's disease, thrombocytosis under the care of oncology on Hydrea. Patient follows with Dr. Raymundo for Parkinson's and was in the office yesterday and was experiencing dizziness was found to have a low blood pressure of 80/50. She drinks half a bottle of water and her blood pressure remained at 86/58. She was then sent to [facility] form admission. Patient states that she has had some shortness of breath with minimal movement such as changing positions. Daughter states that she is not eating or drinking very much. Patient typically does not drink very much water. Patient states that she has had 4 nights waking up with dizziness. She denies any shortness of breath or dizziness at the time of this evaluation. Patient presented to [facility] emergency center. Patient was afebrile, heart rate 67, blood pressure 117/62, pulse ox 97% on room air. Orthostatic vital signs were positive. EKG was in normal sinus rhythm with no acute ST changes. W BC 5.5, hemoglobin 12.5, platelet count 333. D-dimer 1.41. CTA showed no pulmonary embolism. No acute pulmonary process. Compression fracture T8 which is chronic. Sodium 134, potassium 5.5, chloride 103, CO2 26, BUN 27 and creatinine 0.58. TSH 1.160. ProBNP 296. Troponin negative. Lactic acid 0.8. Total bilirubin 0.8 and AST 40. Analysis clear with leukoesterase large, WBC 6. Coronavirus PCR not detected. 07/06: Patient is awake and alert and oriented 3 during evaluation but family concerned that she had some confusion on the phone. This morning, patient was prepared for discharge but she did have a 30 point drop in her blood pressure and 1 L of IV fluid ordered. PT and OT are following. Patient's daughter has been updated over the phone. Patient has been afebrile, heart rate 79, blood pressure 144/67, pulse ox 96% on room air. Her cardiogram reveals EF of 55-60%, mild aortic regurgitation, moderate mitral regurgitation, mild tricuspid regurgitation. 07/07: Patient again had orthostatic changes of 30 points most likely related to autonomic dysfunction. Patient will be started on midodrine 5 mg 3 times daily. Patient is also been started on ceftriaxone for possible urinary tract infection but doubtful. Daughter relates that patient often has difficulty with some confusion when she has a urinary tract infection. Daughter feels that patient is slightly off but patient is oriented 3. She has been afebrile, heart rate 76, blood pressure 132/84, pulse ox 96% on room air. Repeat blood work reveals normal electrolytes except for CO2 of 31, BUN 19 and creatinine 0 .65. Liver function tests normal. Discharge plan is to return home dose likely tomorrow 07/08 patient noted at bedside. Denies dizziness, nausea or vomiting. No burning micturition or increased requests a history given. Patient and daughter bedside has concerns on midodrine, questions answered. Vitals obtained. Patient is positive orthostatics. 1 L bolus of normal saline will be given for continuation of fluids at 100 mL per hour. Labs suggest improvement in creatinine and BUN. Urine culture not obtained as minimal infection noted on UA. Possible discharge on Friday REVIEW OF SYSTEMS Constitutional: No fever, no chills, no night sweats. No weight change. No weakness, fatigue or lethargy. No daytime sleepiness. EENT: No headache. No blurred vision or double vision, no loss of vision. No loss of Hearing, no ringing in the ears, no dizziness. No nasal drainage or congestion. No epistaxis. No sore throat. Lungs: No shortness of breath, cough, no sputum production. No wheezing. Reports dyspnea with exertion. Cardiovascular: No chest pain, no lower extremity edema. No palpitations. No paroxysmal nocturnal dyspnea. No orthopnea. Reports dizziness. No syncopal episodes. Abdominal: No abdominal pain. No nausea, vomiting. No diarrhea. No constipation. No bloody or tarry stools.. No loss of appetite. Genitourinary: No dysuria, increased frequency, urgency. No urinary retention. Musculoskeletal: No myalgias. Reports muscle weakness, no gait dysfunction, no frequent falls. No back pain. No neck pain. Integumentary: No wounds, no lesions. No rash or pruritus. No unusual bruising. No change in hair or nails. Neurologic: No aphasia. No facial droop. No change in mentation. No head injury. No headache. No paralysis. No paresthesia. Psychiatric: No depression. No anxiety. No mood swings. Endocrine: No abnormal blood sugars. No weight change. No excessive sweating or thirst. No cold intolerance. Objective - Vital Signs Vital signs: Vital Signs Temp 98.1 F 07/08/20 11:09 Pulse 72 07/08/20 11:09 Resp 16 07/08/20 11:09 BP 102/63 07/08/20 11:09 Pulse Ox 98 07/08/20 08:00 Intake & Output 07/07/20 07/08/20 07/08/20 18:59 06:59 18:59 Intake Total 720 Output Total 400 Balance 320 Weight 45.8 kg 45.9 kg Intake: Oral 720 Output: Urine 400 Other: Voiding Method Bedside Commode Toilet Toilet Bedside Commode Bedside Commode # Voids 3 1 1 - Exam PHYSICAL EXAMINATION Gen: This is an 80-year-old frail-appearing female. Patient is resting in the bed and daughters at bedside. Patient appears to be in no acute distress. HEENT: Head is atraumatic, normocephalic. Pupils equal, round. Sclerae is anicteric. NECK: Supple. No JVD. No lymphadenopathy. No thyromegaly. LUNGS: Clear to auscultation. No wheezes or rhonchi. No intercostal retractions. HEART: Regular rate and rhythm. No murmur. ABDOMEN: Soft. Bowel sounds are present. No masses. No tenderness. EXTREMITIES: No pedal edema. No calf tenderness. NEUROLOGICAL: Patient is awake, alert and oriented x3. - Labs CBC & Chem 7: 07/04/20 18:29 07/07/20 06:48 Assessment and Plan Plan: 1. Dizziness and hypotension most likely secondary to a combination of orthostatic hypotension due to dehydration and autonomic hypotension. orthostatics continues to be positive . Echocardiogram as above. 1 L fluid bolus, continue fluid at 100 cc/ hr Increase Midodrine to 10 mg mg 3 times daily added. 2. Parkinson's disease. Continue Sinemet at home dose. Patient follows with Dr. Raymundo. 3. Thrombocytosis. Patient follows with oncology. Continue Hydrea 500 mg oral on Friday - Friday, 1000 mg on Friday and Friday. 4. History of coronary artery disease status post PCI and stent placement. Tinea aspirin 325 mg daily. 5. History of hypertension. 6. Dyslipidemia. Hold Zetia for now. 7. GI prophylaxis. Protonix 8. DVT prophylaxis. Heparin subcu. DISCHARGE PLAN Return home at [facility] Friday due to persistent orthostatic
[2020-07-08] MEDS: SODIUM CHLORIDE 0.9% 1,000 ML IV SCH ×2 (15:14→23:21)
[2020-07-09] MEDS: MIDODRINE 5 MG TAB PO SCH ×3 (06:26→17:19)
[2020-07-09] MEDS: SODIUM CHLORIDE 0.9% 1,000 ML IV SCH ×2 (07:46→17:18)
[2020-07-09] MEDS: CARBIDOPA-LEVODOPA 25-100 MG 1 EACH TAB PO SCH ×2 (07:47→21:46)
[2020-07-09] MEDS: CARBIDOPA-LEVODOPA ER 50-200MG 1 EACH TABLET.ER PO SCH ×3 (07:47→17:19)
[2020-07-09] MEDS: ASPIRIN 325 MG TAB PO SCH (07:47)
[2020-07-09] MEDS: HYDROXYUREA 500 MG CAP PO SCH (07:48)
--- NOTE | 2020-07-09 15:03 | P.PN ---
Subjective Progress Note Date: 07/09/20 HISTORY OF PRESENT ILLNESS This is a 80-year-old female patient of Dr. Coats with past medical history of CAD status post PCI and stent placement 2, history of Parkinson's disease, thrombocytosis under the care of oncology on Hydrea. Patient follows with Dr. Raymundo for Parkinson's and was in the office yesterday and was experiencing dizziness was found to have a low blood pressure of 80/50. She drinks half a bottle of water and her blood pressure remained at 86/58. She was then sent to [facility] form admission. Patient states that she has had some shortness of breath with minimal movement such as changing positions. Daughter states that she is not eating or drinking very much. Patient typically does not drink very much water. Patient states that she has had 4 nights waking up with dizziness. She denies any shortness of breath or dizziness at the time of this evaluation. Patient presented to [facility] emergency center. Patient was afebrile, heart rate 67, blood pressure 117/62, pulse ox 97% on room air. Orthostatic vital signs were positive. EKG was in normal sinus rhythm with no acute ST changes. W BC 5.5, hemoglobin 12.5, platelet count 333. D-dimer 1.41. CTA showed no pulmonary embolism. No acute pulmonary process. Compression fracture T8 which is chronic. Sodium 134, potassium 5.5, chloride 103, CO2 26, BUN 27 and creatinine 0.58. TSH 1.160. ProBNP 296. Troponin negative. Lactic acid 0.8. Total bilirubin 0.8 and AST 40. Analysis clear with leukoesterase large, WBC 6. Coronavirus PCR not detected. 07/06: Patient is awake and alert and oriented 3 during evaluation but family concerned that she had some confusion on the phone. This morning, patient was prepared for discharge but she did have a 30 point drop in her blood pressure and 1 L of IV fluid ordered. PT and OT are following. Patient's daughter has been updated over the phone. Patient has been afebrile, heart rate 79, blood pressure 144/67, pulse ox 96% on room air. Her cardiogram reveals EF of 55-60%, mild aortic regurgitation, moderate mitral regurgitation, mild tricuspid regurgitation. 07/07: Patient again had orthostatic changes of 30 points most likely related to autonomic dysfunction. Patient will be started on midodrine 5 mg 3 times daily. Patient is also been started on ceftriaxone for possible urinary tract infection but doubtful. Daughter relates that patient often has difficulty with some confusion when she has a urinary tract infection. Daughter feels that patient is slightly off but patient is oriented 3. She has been afebrile, heart rate 76, blood pressure 132/84, pulse ox 96% on room air. Repeat blood work reveals normal electrolytes except for CO2 of 31, BUN 19 and creatinine 0 .65. Liver function tests normal. Discharge plan is to return home dose likely tomorrow 07/08 patient noted at bedside. Denies dizziness, nausea or vomiting. No burning micturition or increased requests a history given. Patient and daughter bedside has concerns on midodrine, questions answered. Vitals obtained. Patient is positive orthostatics. 1 L bolus of normal saline will be given for continuation of fluids at 100 mL per hour. Labs suggest improvement in creatinine and BUN. Urine culture not obtained as minimal infection noted on UA. Possible discharge on Sunday 07/09 and patient examined bedside. Denies any dizziness nausea or vomiting. Blood pressure was 108/59 with a heart rate of 75. Will continue fluid 24-hour with possible discharge tomorrow. CBC and CMP tomorrow REVIEW OF SYSTEMS Constitutional: No fever, no chills, no night sweats. No weight change. No weakness, fatigue or lethargy. No daytime sleepiness. EENT: No headache. No blurred vision or double vision, no loss of vision. No loss of Hearing, no ringing in the ears, no dizziness. No nasal drainage or congestion. No epistaxis. No sore throat. Lungs: No shortness of breath, cough, no sputum production. No wheezing. Reports dyspnea with exertion. Cardiovascular: No chest pain, no lower extremity edema. No palpitations. No paroxysmal nocturnal dyspnea. No orthopnea. Reports dizziness. No syncopal episodes. Abdominal: No abdominal pain. No nausea, vomiting. No diarrhea. No constipation. No bloody or tarry stools.. No loss of appetite. Genitourinary: No dysuria, increased frequency, urgency. No urinary retention. Musculoskeletal: No myalgias. Reports muscle weakness, no gait dysfunction, no frequent falls. No back pain. No neck pain. Integumentary: No wounds, no lesions. No rash or pruritus. No unusual bruising. No change in hair or nails. Neurologic: No aphasia. No facial droop. No change in mentation. No head injury. No headache. No paralysis. No paresthesia. Psychiatric: No depression. No anxiety. No mood swings. Endocrine: No abnormal blood sugars. No weight change. No excessive sweating or thirst. No cold intolerance. Objective - Vital Signs Vital signs: Vital Signs Temp 97.6 F 07/09/20 12:00 Pulse 66 07/09/20 12:00 Resp 16 07/09/20 12:00 BP 108/59 07/09/20 12:00 Pulse Ox 100 07/09/20 12:00 Intake & Output 07/08/20 07/09/20 07/09/20 17:59 06:59 18:59 Intake Total Balance Weight Intake: Intake, IV Titration Amount Sodium Chloride 0.9% 1, 000 ml @ 100 mls/hr IV . Q10H JAY Rx#:[id number] Sodium Chloride 0.9% 1, 000 ml @ 999 mls/hr IV . Q1H1M ONE Rx#:[id number] cefTRIAXone 1 gm In Sodium Chloride 0.9% 50 ml @ 100 mls/hr IVPB Q24HR JAY Rx#:[id number] Oral Other: Voiding Method Toilet # Voids # Bowel Movements 1 - Exam PHYSICAL EXAMINATION Gen: This is an 80-year-old frail-appearing female. Patient is resting in the bed and daughters at bedside. Patient appears to be in no acute distress. HEENT: Head is atraumatic, normocephalic. Pupils equal, round. Sclerae is anicteric. NECK: Supple. No JVD. No lymphadenopathy. No thyromegaly. LUNGS: Clear to auscultation. No wheezes or rhonchi. No intercostal retractions. HEART: Regular rate and rhythm. No murmur. ABDOMEN: Soft. Bowel sounds are present. No masses. No tenderness. EXTREMITIES: No pedal edema. No calf tenderness. NEUROLOGICAL: Patient is awake, alert and oriented x3. - Labs CBC & Chem 7: 07/04/20 18:29 07/07/20 06:48 Assessment and Plan Plan: 1. Dizziness and hypotension most likely secondary to a combination of orthostatic hypotension due to dehydration and autonomic hypotension. orthostatics continues to be positive . Echocardiogram as above. 1 L fluid bolus, continue fluid at 100 cc/ hr Increase Midodrine to 10 mg mg 3 times daily added. 2. Parkinson's disease. Continue Sinemet at home dose. Patient follows with Alicia Raymundo. 3. Thrombocytosis. Patient follows with oncology. Continue Hydrea 500 mg oral on Friday - Friday, 1000 mg on Friday and Friday. 4. History of coronary artery disease status post PCI and stent placement. Tinea aspirin 325 mg daily. 5. History of hypertension. 6. Dyslipidemia. Hold Zetia for now. 7. GI prophylaxis. Protonix 8. DVT prophylaxis. Heparin subcu. DISCHARGE PLAN Return home at [facility] Friday due to persistent orthostatic
[2020-07-09 19:59] VITALS: RESP 18; TEMP 98
[2020-07-10 06:46] LABS: Basophils % (A) 1 %; Eosinophils # (A) 0.1 k/uL (0-0.7); Eosinophils % (A) 3 %; HGB 10.7 gm/dL (11.4-16.0); Lymphocytes # (A) 1.2 k/uL (1.0-4.8); Lymphocytes % (A) 25 %; MCHC 32.3 g/dL (31.0-37.0); MCV 111.4 fL (80.0-100.0); Macrocytosis Marked; Mean Platelet Volume 7.8; Monocytes # (A) 0.3 k/uL (0-1.0); Monocytes % (A) 6 %; Neutrophils # (A) 3.1 k/uL (1.3-7.7); Neutrophils % (A) 64 %; Platelet Count 297 k/uL (150-450); RBC 2.97 m/uL (3.80-5.40); WBC 4.8 k/uL (3.8-10.6)
[2020-07-10 07:06] LABS: ALT <6 U/L (4-34); AST 23 U/L (14-36); African American GFR (CKD) >90 (>60 ml/min/1.73 sqM); Albumin 2.8 g/dL (3.5-5.0); Alkaline Phosphatase 68 U/L (38-126); Anion Gap 3 mmol/L; Blood Urea Nitrogen 16 mg/dL (7-17); Calcium 8.2 mg/dL (8.4-10.2); Carbon Dioxide 27 mmol/L (22-30); Chloride 109 mmol/L (98-107); Glucose 82 mg/dL (74-99); Non-African American GFR(CKD) 88 (>60 ml/min/1.73 sqM); Sodium 139 mmol/L (137-145); Total Bilirubin 0.4 mg/dL (0.2-1.3); Total Protein 5.3 g/dL (6.3-8.2)
[2020-07-10] MEDS: ASPIRIN 325 MG TAB PO SCH (09:04)
[2020-07-10] MEDS: CARBIDOPA-LEVODOPA 25-100 MG 1 EACH TAB PO SCH (09:05)
[2020-07-10] MEDS: CARBIDOPA-LEVODOPA ER 50-200MG 1 EACH TABLET.ER PO SCH ×2 (09:05→11:33)
[2020-07-10] MEDS: HYDROXYUREA 500 MG CAP PO SCH (09:06)
[2020-07-10 10:25] VITALS: BP 142/88; PULSE 98
--- NOTE | 2020-07-10 10:52 | P.DS ---
Providers Date of admission: 07/04/20 21:12 Expected date of discharge: 07/10/20 Attending physician: Ky Coats Primary care physician: [facility] Course: HISTORY OF PRESENT ILLNESS This is a 80-year-old female patient of Dr. Coats with past medical history of CAD status post PCI and stent placement 2, history of Parkinson's disease, thrombocytosis under the care of oncology on Hydrea. Patient follows with Dr. Raymundo for Parkinson's and was in the office yesterday and was experiencing dizziness was found to have a low blood pressure of 80/50. She drinks half a bottle of water and her blood pressure remained at 86/58. She was then sent to [facility] form admission. Patient states that she has had some shortness of breath with minimal movement such as changing posi tions. Daughter states that she is not eating or drinking very much. Patient typically does not drink very much water. Patient states that she has had 4 nights waking up with dizziness. She denies any shortness of breath or dizziness at the time of this evaluation. Patient presented to [facility] emergency center. Patient was afebrile, heart rate 67, blood pressure 117/62, pulse ox 97% on room air. Orthostatic vital signs were positive. EKG was in normal sinus rhythm with no acute ST changes. W BC 5.5, hemoglobin 12.5, platelet count 333. D-dimer 1.41. CTA showed no pulmonary embolism. No acute pulmonary process. Compression fracture T8 which is chronic. Sodium 134, potassium 5.5, chloride 103, CO2 26, BUN 27 and creatinine 0.58. TSH 1.160. ProBNP 296. Troponin negative. Lactic acid 0.8. Total bilirubin 0.8 and AST 40. Analysis clear with leukoesterase large, WBC 6. Coronavirus PCR not detected. 07/06: Patient is awake and alert and oriented 3 during evaluation but family concerned that she had some confusion on the phone. This morning, patient was prepared for discharge but she did have a 30 point drop in her blood pressure and 1 L of IV fluid ordered. PT and OT are following. Patient's daughter has been updated over the phone. Patient has been afebrile, heart rate 79, blood pressure 144/67, pulse ox 96% on room air. Her cardiogram reveals EF of 55-60%, mild aortic regurgitation, moderate mitral regurgitation, mild tricuspid regurgitation. 07/07: Patient again had orthostatic changes of 30 points most likely related to autonomic dysfunction. Patient will be started on midodrine 5 mg 3 times daily. Patient is also been started on ceftriaxone for possible urinary tract infection but doubtful. Daughter relates that patient often has difficulty with some confusion when she has a urinary tract infection. Daughter feels that patient is slightly off but patient is oriented 3. She has been afebrile, heart rate 76, blood pressure 132/84, pulse ox 96% on room air. Repeat blood work reveals normal electrolytes except for CO2 of 31, BUN 19 and creatinine 0.65. Liver function tests normal. Discharge plan is to return home dose likely tomorrow 07/08 patient noted at bedside. Denies dizziness, nausea or vomiting. No burning micturition or increased requests a history given. Patient and daughter bedside has concerns on midodrine, questions answered. Vitals obtained. Patient is positive orthostatics. 1 L bolus of normal saline will be given for continuation of fluids at 100 mL per hour. Labs suggest improvement in creatinine and BUN. Urine culture not obtained as minimal infection noted on UA. Possible discharge on Sunday 07/09 and patient examined bedside. Denies any dizziness nausea or vomiting. Blood pressure was 108/59 with a heart rate of 75. Will continue fluid 24-hour with possible discharge tomorrow. CBC and CMP tomorrow 07/10: Patient is resting in recliner and has no new complaints. Patient was ambulated briefly in her room. She has less orthostatic changes at 15 points. She was started on midodrine which seems to have some improvement of her symptoms. She has been afebrile, heart rate 98, blood pressure 145/89, pulse ox 93% on room air. Repeat blood work reveals WBC 4.8, hemoglobin 10.7. Creatinine 0.58. Patient initially refused home care but discussed with the patient's daughter over the phone and this will be arranged for the patient, caser to follow-up. The patient is in agreement after discussed. Patient will be discharged home today in stable condition. DISCHARGE DIAGNOSES 1. Dizziness and hypotension most likely secondary to a combination of orthostatic hypotension due to dehydration and autonomic dysfunction secondary t o Parkinson's. 2. Parkinson's disease. 3. Thrombocytosis. 4. History of coronary artery disease status post PCI and stent placement. 5. History of hypertension. 6. Dyslipidemia. DISCHARGE PLAN Return to [facility] with [facility] Impression and plan of care have been directed as dictated by the signing physician. Linda Baxter nurse practitioner acting as scribe for signing physician. Patient Condition at Discharge: Stable Plan - Discharge Summary Discharge Rx Participant: No New Discharge Prescriptions: New Midodrine [ProAmatine] 5 mg PO AC-TID #90 tab Cefuroxime [Ceftin] 250 mg PO BID 3 Days #6 tab Continue Aspirin EC [Ecotrin] 325 mg PO DAILY Carbidopa-Levodopa 25-100 mg [Sinemet 25-100 mg] 1 tab PO BID Ginkgo Biloba 240mg 240 mg PO DAILY Ubidecarenone [Co Q-10] 100 mg PO DAILY Ezetimibe [Zetia] 10 mg PO DAILY Carbidopa-Levodopa ER 50-200Mg [Sinemet CR 50-200 mg] 1 tab PO TID@0800,1200,1800 Cbd Oil 50mg 50 mg PO DAILY PRN PRN Reason: Pain Hydroxyurea [Hydrea] 500 mg PO MOTUWETHFR Hydroxyurea [Hydrea] 1,000 mg PO SUSA Cholecalciferol (Vitamin D3) [Vitamin D3 (5000 Iu)] 250 mcg PO DAILY Krill Oil 500 mg PO DAILY Discharge Medication List Aspirin EC [Ecotrin] 325 mg PO DAILY 01/22/15 [History] Carbidopa-Levodopa 25-100 mg [Sinemet 25-100 mg] 1 tab PO BID 01/04/19 [History] Carbidopa-Levodopa ER 50-200Mg [Sinemet CR 50-200 mg] 1 tab PO TID@0800,1200,1800 07/04/20 [History] Cbd Oil 50mg 50 mg PO DAILY PRN 07/04/20 [History] Cholecalciferol (Vitamin D3) [Vitamin D3 (5000 Iu)] 250 mcg PO DAILY 07/04/20 [History] Ezetimibe [Zetia] 10 mg PO DAILY 07/04/20 [History] Ginkgo Biloba 240mg 240 mg PO DAILY 07/04/20 [History] Hydroxyurea [Hydrea] 1,000 mg PO SUSA 07/04/20 [History] Hydroxyurea [Hydrea] 500 mg PO MOTUWETHFR 03/09/21 [History] Krill Oil 500 mg PO DAILY 07/04/20 [History] Ubidecarenone [Co Q-10] 100 mg PO DAILY 07/04/20 [History] Cefuroxime [Ceftin] 250 mg PO BID 3 Days #6 tab 07/10/20 [Rx] Midodrine [ProAmatine] 5 mg PO AC-TID #90 tab 07/10/20 [Rx] Follow up Appointment(s)/Referral(s): Ky Coats MD [Primary Care Provider] - 1 Week (Please call office to schedule a hospital follow up appointment. ) [facility] Visiting Nurse, [NON-STAFF] - Patient Instructions/Handouts: Hypotension (DC), Near Syncope (DC) Discharge Disposition: HOME WITH HOME HEALTH SERVICES
[2020-07-10] MEDS: MIDODRINE 5 MG TAB PO SCH (11:33)
== END 2020-07-10 13:18 | disposition home health service (06) | DRG 312 ==
LOC: EC 16:58 → 3SCARD 21:12
PROVIDERS: ADMIT Internal Medicine Geriatric Medicine; ATTEND Internal Medicine Geriatric Medicine
DX: I95.1 Orthostatic hypotension (principal); N39.0 Urinary tract infection, site not specified; G90.9 Disorder of the autonomic nervous system, unspecified; G20 Parkinson's disease; Z20.822 Contact with and (suspected) exposure to COVID-19; E86.0 Dehydration; I25.10 Atherosclerotic heart disease of native coronary artery without angina pectoris; K21.9 Gastro-esophageal reflux disease without esophagitis; M19.90 Unspecified osteoarthritis, unspecified site; H35.30 Unspecified macular degeneration; M48.54XD Collapsed vertebra, not elsewhere classified, thoracic region, subsequent encounter for fracture with routine healing; I10 Essential (primary) hypertension; E78.5 Hyperlipidemia, unspecified; D47.3 Essential (hemorrhagic) thrombocythemia; I08.3 Combined rheumatic disorders of mitral, aortic and tricuspid valves; Z71.3 Dietary counseling and surveillance; I25.2 Old myocardial infarction; Z79.82 Long term (current) use of aspirin; Z79.899 Other long term (current) drug therapy; Z95.5 Presence of coronary angioplasty implant and graft; Z96.1 Presence of intraocular lens; Z98.890 Other specified postprocedural states; Z98.51 Tubal ligation status; Z98.42 Cataract extraction status, left eye; Z98.41 Cataract extraction status, right eye; Z87.891 Personal history of nicotine dependence; Z91.013 Allergy to seafood; Z91.048 Other nonmedicinal substance allergy status; Z80.42 Family history of malignant neoplasm of prostate; Z82.49 Family history of ischemic heart disease and other diseases of the circulatory system
CPT/HCPCS: 36415; 71046; 71275; 80053; 81001; 82607; 83605; 83880; 84443; 84484; 85025; 85379; 85610; 85730; 87635; 93005; 93306; 94760; 96361; 96374; 96375; 99285

== ENCOUNTER 2022-10-08 14:51 | Inpatient (IN) | payer MEDICARE, OTHER ==
[2022-10-08] MEDS ORDERED: MORPHINE SULFATE 2 MG/ML SYRINGE IVP STA ×2 (15:08)
--- NOTE | 2022-10-08 15:11 | ED ---
General Adult HPI - General Chief complaint: Extremity Injury, Lower Stated complaint: Rt Hip pain Time Seen by Provider: 10/08/22 14:55 Source: patient, RN notes reviewed Mode of arrival: EMS Limitations: no limitations - History of Present Illness Initial comments: Patient is a pleasant 82-year-old female presenting to the emergency Department with right hip pain. Patient states she had a fall this morning. Patient continued since to having Parkinson's and states she does occasionally fall like this. No head injury or loss of consciousness. No neck or back pain. Patient reportedly had x-rays done however results and films are not son. Patient states discomfort is moderate and severe with movement. No other area of injury. - Related Data Home Medications Medication Instructions Recorded Confirmed Aspirin EC [Ecotrin] 325 mg PO DAILY@0800 01/22/15 10/08/22 Carbidopa-Levodopa 25-100 mg 1 tab PO TID@0800,1400,2200 01/04/19 10/08/22 [Sinemet 25-100 mg] Ezetimibe [Zetia] 10 mg PO HS@2100 07/04/20 10/08/22 Hydroxyurea [Hydrea] 1,000 mg PO SUSA@0800 07/04/20 10/08/22 Hydroxyurea [Hydrea] 500 mg PO TUWETHFR@0800 07/04/20 10/08/22 Acetaminophen [Tylenol Extra 500 mg PO TID@0800,1200,1700 10/08/22 10/08/22 Strength] Clopidogrel [Plavix] 75 mg PO DAILY@0800 10/08/22 10/08/22 Cranberry Fruit Extract [Cranberry] 500 mg PO DAILY@0800 10/08/22 10/08/22 Diclofenac Sodium Gel [Voltaren 1 applic TOPICAL BID@0800,1700 10/08/22 10/08/22 Gel] Ensure Enlive 120 ml PO DAILY@0800 10/08/22 10/08/22 Escitalopram [Lexapro] 10 mg PO HS@2100 10/08/22 10/08/22 L.acidoph,Paracasei, B.lactis 1 cap PO DAILY@0800 10/08/22 10/08/22 [Probiotic] Loperamide HCl [Imodium A-D] 4 mg PO BID PRN 10/08/22 10/08/22 Magnesium Hydroxide [Milk of 7,200 mg PO Q48H PRN 10/08/22 10/08/22 Magnesia Concentrate] Melatonin 3 mg PO HS@2100 10/08/22 10/08/22 Na Phos,M-B/Na Phos,Di-Ba [Fleet 133 ml RECTAL DAILY PRN 10/08/22 10/08/22 Adult] QUEtiapine [SEROquel] 25 mg PO HS@2100 10/08/22 10/08/22 bisacodyL [Dulcolax] 10 mg RECTAL DAILY PRN 10/08/22 10/08/22 guaiFENesin [guaiFENesin Oral 200 mg PO Q4H PRN 10/08/22 10/08/22 Solution] Allergies Allergy/AdvReac Type Severity Reaction Status Date / Time adhesive Allergy Rash/Hives Verified 10/08/22 15:23 Penicillins Allergy Rash/Hives Verified 10/08/22 15:23 shellfish derived [Shellfish] AdvReac Nausea & Verified 10/08/22 15:23 Vomiting & Diarrhea Review of Systems ROS Statement: Those systems with pertinent positive or pertinent negative responses have been documented in the HPI. ROS Other: All systems not noted in ROS Statement are negative. Constitutional: Denies: fever Eyes: Denies: eye pain ENT: Denies: ear pain Respiratory: Denies: cough Cardiovascular: Denies: chest pain Endocrine: Denies: fatigue Gastrointestinal: Denies: abdominal pain Genitourinary: Denies: dysuria Musculoskeletal: Reports: as per HPI Skin: Denies: rash Neurological: Denies: weakness Past Medical History Past Medical History: Blood Disorder, Coronary Artery Disease (CAD), GERD/Reflux, Myocardial Infarction ([place]), Musculoskeletal Disorder, Neurologic Disorder, Osteoarthritis (OA) Additional Past Medical History / Comment(s): Parkinson's disease, thrombocythemia,macular degeneration Last Myocardial Infarction Date:: 2012 History of Any Multi-Drug Resistant Organisms: ESBL Date of last positivie culture/infection: 08/14/22 ESBL E.coli MDRO Source:: Urine Past Surgical History: Heart Catheterization, Heart Catheterization With Stent, Tonsillectomy, Tubal Ligation Additional Past Surgical History / Comment(s): 2003 PCI with 2 stents, 2009 PCI with 1 stent, 2012 cardiac cath-treat medically, bilateral cataract r emovals/lens implants, Past Anesthesia/Blood Transfusion Reactions: No Reported Reaction Additional Past Anesthesia/Blood Transfusion Reaction / Comment(s): Pt has never had. Date of Last Stent Placement:: 2009 Past Psychological History: No Psychological Hx Reported Smoking Status: Former smoker Past Alcohol Use History: None Reported Past Drug Use History: None Reported - Past Family History Father Family Medical History: Cancer Additional Family Medical History / Comment(s): Father had prostate cancer. Mother Family Medical History: Chest Pain / Angina, Coronary Artery Disease (CAD) General Exam Limitations: no limitations General appearance: alert, in no apparent distress Head exam: Present: atraumatic, normocephalic Eye exam: Present: normal appearance, PERRL, EOMI ENT exam: Present: normal oropharynx Neck exam: Present: normal inspection. Absent: tenderness Respiratory exam: Present: normal lung sounds bilaterally Cardiovascular Exam: Present: regular rate, normal rhythm Expanded Peripheral pulses: 2+: Posterior Tibialis (R), Dorsalis Pedis (R) GI/Abdominal exam: Present: soft. Absent: tenderness Extremities exam: Present: tenderness (Right anterior hip. Pain with range of motion. leg is held in internal rotation and shortening.) Neurological exam: Present: alert. Absent: motor sensory deficit (Dysfunctional days are neurovascularly intact.) Psychiatric exam: Present: normal affect, normal mood Skin exam: Present: normal color Course Vital Signs 10/08/22 14:53 Temperature 98.0 F Pulse Rate 91 Respiratory 20 Rate Blood Pressure 154/104 O2 Sat by Pulse 98 Oximetry EKG Findings - EKG Results: EKG: interpreted by ERMD (Low voltage.), sinus rhythm, normal axis, normal ST/T Medical Decision Making - Medical Decision Making Was pt. sent in by a medical professional or institution (, PA, BOARD ATTENDANT, urgent care, hospital, or [place] health care facility...) When possible be specific @ -Patient was sent in by nursing facility Did you speak to anyone other than the patient for history (EMS, parent, family, police, friend...)? What history was obtained from this source @ -No Did you review nursing and triage notes (agree or disagree)? Why? @ -I reviewed and agree with nursing and triage notes Were old charts reviewed (outside hosp., previous admission, EMS record, old EKG, old radiological studies, urgent care reports/EKG's, [place] health care facility records)? Report findings @ -No old charts were reviewed Differential Diagnosis (chest pain, altered mental status, abdominal pain women, abdominal pain men, vaginal bleeding, weakness, fever, dyspnea, syncope, headache, dizziness, GI bleed, back pain, seizure, CVA, palpatations, mental health)? @ -not applicable EKG interpreted by me (3pts min.). @ -As above X-rays interpreted by me (1pt min.). @ -Right hip and pelvis x-ray shows right femoral neck fracture CT interpreted by me (1pt min.). @ -None done U/S interpreted by me (1pt. min.). @ -None done What testing was considered but not performed or refused? (CT, X-rays, U/S, labs)? Why? @ -None What meds were considered but not given or refused? Why? @ -None Did you discuss the management of the patient with other professionals (professionals i.e. , PA, BOARD ATTENDANT, lab, RT, psych nurse, social worker health services, evp, teacher, budget officer, transplant case manager)? Give summary @ -Case was discussed with practitioner Blessing with orthopedics who will admit covering Dr. Swartz. Was smoking cessation discussed for >3mins.? @ -No Was critical care preformed (if so, how long)? @ -No Were there social determinants of health that impacted care today? How? (Homelessness, low income, unemployed, alcoholism, drug addiction, transportation, low edu. Level, literacy, decrease access to med. care, longterm, rehab)? @ -No Was there de-escalation of care discussed even if they declined (Discuss DNR or withdrawal of care, Hospice)? DNR status @ -No What co-morbidities impacted this encounter? (DM, HTN, Smoking, COPD, CAD, Cancer, CVA, ARF, Chemo, Hep., AIDS, mental health diagnosis, sleep apnea, morbid obesity)? @ -None Was patient admitted / discharged? Hospital course, mention meds given and route, prescriptions, significant lab abnormalities, going to OR and other pertinent info. @ -Patient reevaluated. Patient and family updated. Patient will be admitted for orthopedics Undiagnosed new problem with uncertain prognosis? @ -No Drug Therapy requiring intensive monitoring for toxicity (Heparin, Nitro, In sulin, Cardizem)? @ -No Were any procedures done? @ -No Diagnosis/symptom? @ -Hip fracture Acute, or Chronic, or Acute on Chronic? @ -Acute Uncomplicated (without systemic symptoms) or Complicated (systemic symptoms)? @ -default Side effects of treatment? @ -No Exacerbation, Progression, or Severe Exacerbation? @ -No Poses a threat to life or bodily function? How? (Chest pain, [place], [place], pneumonia, PE, COPD, DKA, ARF, appy, cholecystitis, CVA, Diverticulitis, Homicidal, Suicidal, threat to staff... and all critical care pts) @ -No - Lab Data Result diagrams: 10/08/22 15:24 10/08/22 15:24 Lab Results 10/08/22 10/08/22 10/08/22 Range/Units 15:24 15:24 15:24 WBC 8.4 (3.8-10.6) k/uL RBC 3.64 L (3.80-5.40) m/uL Hgb 12.3 (11.4-16.0) gm/dL Hct 39.2 (34.0-46.0) % MCV 107.6 H (80.0-100.0) fL MCH 33.8 (25.0-35.0) pg MCHC 31.4 (31.0-37.0) g/dL RDW 14.1 (11.5-15.5) % Plt Count 366 (150-450) k/uL MPV 8.1 Neutrophils % 83 % Lymphocytes % 12 % Monocytes % 4 % Eosinophils % 1 % Basophils % 0 % Neutrophils # 6.9 (1.3-7.7) k/uL Lymphocytes # 1.0 (1.0-4.8) k/uL Monocytes # 0.3 (0-1.0) k/uL Eosinophils # 0.1 (0-0.7) k/uL Basophils # 0.0 (0-0.2) k/uL Hypochromasia Slight Macrocytosis Moderate PT 10.3 (9.0-12.0) sec INR 1.0 (<1.2) APTT 21.6 L (22.0-30.0) sec Sodium 137 (137-145) mmol/L Potassium 4.1 (3.5-5.1) mmol/L Chloride 103 (98-107) mmol/L Carbon Dioxide 28 (22-30) mmol/L Anion Gap 6 mmol/L BUN 21 H (7-17) mg/dL Creatinine 0.57 (0.52-1.04) mg/dL Est GFR (CKD-EPI)AfAm >90 (>60 ml/min/1.73 sqM) Est GFR (CKD-EPI)NonAf 87 (>60 ml/min/1.73 sqM) Glucose 117 H (74-99) mg/dL Calcium 8.8 (8.4-10.2) mg/dL Total Bilirubin 0.4 (0.2-1.3) mg/dL AST 24 (14-36) U/L ALT 7 (4-34) U/L Alkaline Phosphatase 85 (38-126) U/L Total Protein 7.0 (6.3-8.2) g/dL Albumin 3.8 (3.5-5.0) g/dL Disposition Clinical Impression: Fracture of hip Disposition: ADMITTED IP TO THIS HOSP Is patient prescribed a controlled substance at d/c from ED?: No Referrals: Ky Coats MD [Primary Care Provider] - 1-2 days Time of Disposition: 16:56
[2022-10-08 15:36] LABS: Basophils % (A) 0 %; Eosinophils # (A) 0.1 k/uL (0-0.7); Eosinophils % (A) 1 %; HCT 39.2 % (34.0-46.0); HGB 12.3 gm/dL (11.4-16.0); Hypochromasia Slight; Lymphocytes % (A) 12 %; MCH 33.8 pg (25.0-35.0); MCHC 31.4 g/dL (31.0-37.0); MCV 107.6 fL (80.0-100.0); Macrocytosis Moderate; Mean Platelet Volume 8.1; Monocytes # (A) 0.3 k/uL (0-1.0); Monocytes % (A) 4 %; Neutrophils # (A) 6.9 k/uL (1.3-7.7); Neutrophils % (A) 83 %; Platelet Count 366 k/uL (150-450); RBC 3.64 m/uL (3.80-5.40); RDW 14.1 % (11.5-15.5); WBC 8.4 k/uL (3.8-10.6)
[2022-10-08 15:54] LABS: Prothrombin Time 10.3 sec (9.0-12.0)
[2022-10-08 15:57] LABS: ALT 7 U/L (4-34); AST 24 U/L (14-36); African American GFR (CKD) >90 (>60 ml/min/1.73 sqM); Albumin 3.8 g/dL (3.5-5.0); Alkaline Phosphatase 85 U/L (38-126); Anion Gap 6 mmol/L; Blood Urea Nitrogen 21 mg/dL (7-17); Calcium 8.8 mg/dL (8.4-10.2); Carbon Dioxide 28 mmol/L (22-30); Chloride 103 mmol/L (98-107); Glucose 117 mg/dL (74-99); Non-African American GFR(CKD) 87 (>60 ml/min/1.73 sqM); Potassium 4.1 mmol/L (3.5-5.1); Sodium 137 mmol/L (137-145); Total Bilirubin 0.4 mg/dL (0.2-1.3)
[2022-10-08 16:01] LABS: Partial Thromboplastin Time 21.6 sec (22.0-30.0)
--- NOTE | 2022-10-08 16:20 | XR ---
EXAMINATION TYPE: XR chest 1V portable DATE OF EXAM: 10/08/2022 4:15 PM COMPARISON: Chest radiographs from 07/04/2020 TECHNIQUE: XR chest 1V portable Portable AP radiograph of the chest. CLINICAL INDICATION:Female, 82 years old with history of fall; FINDINGS: Lungs/Pleura: Chronic parenchymal changes. No evidence of pneumothorax, pleural effusion or focal con solidation. Pulmonary vascularity: Unremarkable. Heart/mediastinum: Cardiomediastinal silhouette is unremarkable. Atherosclerotic calcifications are seen in the aorta. Musculoskeletal: No acute osseous pathology. IMPRESSION: Chronic changes without evidence for acute process.
--- NOTE | 2022-10-08 16:23 | XR ---
EXAMINATION TYPE: XR Hip RT and AP Pelvis DATE OF EXAM: 10/08/2022 4:15 PM INDICATION: Patient age:Female; 82 years old; Reason for study: fall; PHH. COMPARISON: CT abdomen and pelvis 06/13/2022 TECHNIQUE: The right hip was examined in the frontal and lateral projections and a AP pelvis. FINDINGS: Acute mildly displaced right proximal femoral neck fracture. There is approximately 2.4 cm of superior displacement .. No dislocation. Few pelvic phlebolith. Multilevel degenerative changes of the lumbar spine. Mild overlying soft tissue edema. IMPRESSION: Acute mildly displaced right proximal femoral neck fracture.
[2022-10-08] MEDS ORDERED: MORPHINE SULFATE 4 MG/ML SYRINGE IVP STA (16:26)
[2022-10-08] MEDS ORDERED: NALOXONE 0.4 MG/ML 1 ML VIAL IV PRN (16:56)
[2022-10-08] MEDS ORDERED: ACETAMINOPHEN TAB 325 MG TAB PO PRN (16:56)
[2022-10-08] MEDS: MORPHINE SULFATE 4 MG/ML SYRINGE IV PRN ×2 (20:20→20:32)
[2022-10-08] MEDS: QUEtiapine 25 MG TAB PO SCH (20:20)
[2022-10-08] MEDS: CARBIDOPA-LEVODOPA 25-100 MG 1 EACH TAB PO SCH (20:20)
[2022-10-08] MEDS: EZETIMIBE 10 MG TAB PO SCH (20:22)
[2022-10-08] MEDS: ESCITALOPRAM 10 MG TAB PO SCH (20:22)
[2022-10-09] MEDS: MORPHINE SULFATE 4 MG/ML SYRINGE IV PRN ×2 (08:12→12:44)
[2022-10-09] MEDS: CARBIDOPA-LEVODOPA 25-100 MG 1 EACH TAB PO SCH ×3 (08:13→21:15)
[2022-10-09] MEDS: HYDROXYUREA 500 MG CAP PO SCH (08:13)
[2022-10-09] MEDS ORDERED: ceFAZolin 2 GM in SODIUM CHLORIDE 0.9% 100 ML IVPB PRN (13:56)
[2022-10-09] MEDS ORDERED: TRANEXAMIC ACID 1,000 MG in SODIUM CHLORIDE 0.9% 100 ML IVPB PRN (13:56)
[2022-10-09] MEDS ORDERED: LOPERAMIDE 2 MG CAP PO PRN (15:57)
[2022-10-09] MEDS ORDERED: NA PHOS,M-B/NA PHOS,DI-BA 133 ML ENEMA RECTAL PRN (15:57)
[2022-10-09] MEDS ORDERED: bisacodyL 10 MG SUPP RECTAL PRN (15:57)
[2022-10-09] MEDS ORDERED: MAGNESIUM HYDROXIDE 2,400 MG/10 ML CUP PO PRN (15:57)
[2022-10-09] MEDS ORDERED: guaiFENesin SYRUP 100MG/5ML 200 MG/10 ML CUP PO PRN (15:57)
--- NOTE | 2022-10-09 15:59 | P.CONS ---
History of Present Illness - Reason for Consult Consult date: 10/09/22 Medical clearance/medical management status post right prox femoral neck fx - History of Present Illness This is a Pleasant 82-year-old female who resides at [facility] and follows with Dr. Coats at the facility with past medical history of thrombocythemia, macular degeneration, history of coronary artery disease with myocardial infarction and stenting in 2013, GERD, osteoarthritis, Parkinson's disease and depression. Patient reports to being a former smoker and denies any other illicit drug use or alcohol. Patient at [facility] attempting occupational therapy and patient becoming progressively more weak and having falls with more frequent falls due to her Parkinson's and fell having some right hip pain. X-ray of the hip and pelvis showed an acute mildly displaced right proximal femoral neck fracture and the displacement is approximately 2.4 cm with no dislocation noted. Chest x-ray shows chronic changes without any evidence of acute process, EKG showed sinus rhythm. Labs reviewed and within normal limits with a hemoglobin of 12.3, sodium 137, potassium 4.1, creatinine 0.57. Patient was admitted to orthopedic services and planning for surgical intervention of the right hip fracture sometime this afternoon. Patient is medically stable and low to moderate risk for surgical intervention. Medical management was placed as a consult and will continue to follow. Review Of Systems: Constitutional: No fever, no chills, no night sweats. No weight change. No weakness, fatigue or lethargy. No daytime sleepiness. EENT: No headache. No blurred vision or double vision, no loss of vision. No loss of Hearing, no ringing in the ears, no dizziness. No nasal drainage or congestion. No epistaxis. No sore throat. Lungs: No shortness of breath, cough, no sputum production. No wheezing. Cardiovascular: No chest pain, no lower extremity edema. No palpitations. No paroxysmal nocturnal dyspnea. No orthopnea. No lightheadedness or dizziness. No syncopal episodes. Abdominal: No abdominal pain. No nausea, vomiting. No diarrhea. No constipation. No bloody or tarry stools.. No loss of appetite. Genitourinary: No dysuria, increased frequency, urgency. No urinary retention. Musculoskeletal: No myalgias. Reports muscle weakness, no gait dysfunction, reports more frequent falls. No back pain. No neck pain. Reports right leg discomfort with movement Integumentary: No wounds, no lesions. No rash or pruritus. No unusual bruising. No change in hair or nails. Neurologic: No aphasia. No facial droop. No change in mentation. No head injury. No headache. No paralysis. No paresthesia. Psychiatric: No depression. No anxiety. No mood swings. Endocrine: No abnormal blood sugars. No weight change. No excessive sweating or thirst. No cold intolerance. PHYSICAL EXAMINATION: GENERAL: The patient is alert and oriented x3, elderly appearing, thin built HEENT: Pupils are round and equally reacting to light. EOMI. no scleral icterus. No conjunctival pallor. Normocephalic, atraumatic. No pharyngeal erythema. No thyromegaly. CARDIOVASCULAR: S1 and S2 muffled PULMONARY: diminished breath sounds bilaterally with no wheezing or rhonchi noted. ABDOMEN: soft. Nontender on exam. obese. non-distended, normoactive bowel sounds. No palpable organomegaly. MUSCULOSKELETAL: No joint swelling or deformity. EXTREMITIES: No cyanosis, clubbing, or pedal edema. Right lower extremity is shortened and externally rotated NEUROLOGICAL: Gross neurological examination did not reveal any focal deficits. Parkinsonian movements of the hands with faint twitch is noted of the lower extremities Diffuse weakness SKIN: No rashes. Assessment: Mildly displaced acute right proximal femoral neck fracture secondary to Fall Increased weakness and more frequent falling Altered mentation with some hallucinations most likely toxic encephalopathy secondary to medication effect of morphine History of Parkinson's History of coronary artery disease History of myocardial infarction with stenting in the past History of depression Gastroesophageal reflux disease Thrombocythemia GI prophylaxis DVT prophylaxis Full code Plan: Recommend to continue with current medications and management per orthopedic services. Patient is a low to moderate risk for surgical intervention and family at bedside along with patient are willing and agree with surgical intervention as patient wants to be mobile and was prior to this although has been progressively becoming more weak and is a resident at [facility]. Risks versus benefits were discussed and explained and patient is willing to proceed with surgical intervention. Patient does have indwelling Trimble catheter for now and would recommend discontinuing after surgical intervention. Patient also taking morphine and family reports patient is a little more confused than normal and would recommend using Tylenol and Toradol with Ultram low-dose and this was discussed with daughter at bedside. Patient is currently nothing by mouth and will resume postsurgery Home medications will be reviewed and resumed as appropriate. Patient is medically stable for right hip repair and will continue to follow along with orthopedics. They do cramming for this consultation The impression and plan of care has been dictated by Lissette Aiken, nurse practitioner as directed. Dr. Shagufta MD I have performed a history and examination and MDM of this patient, discussed the same with the dictator, and agree with the dictator's assessment and plan as written ,documented as a scribe. Based on total visit time, I have performed more than 50% of the visit. Any additional findings or plans will be noted. Past Medical History Past Medical History: Blood Disorder, Coronary Artery Disease (CAD), GERD/Reflux, Myocardial Infarction (CT), Musculoskeletal Disorder, Neurologic Disorder, Osteoarthritis (OA) Additional Past Medical History / Comment(s): Parkinson's disease, thrombocythemia,macular degeneration Last Myocardial Infarction Date:: 2012 History of Any Multi-Drug Resistant Organisms: ESBL Year Discovered:: 08/14/22 ESBL E.coli MDRO Source:: Urine Past Surgical History: Heart Catheterization, Heart Catheterization With Stent, Tonsillectomy, Tubal Ligation Additional Past Surgical History / Comment(s): 2003 PCI with 2 stents, 2009 PCI with 1 stent, 2012 cardiac cath-treat medically, bilateral cataract removals/lens implants, Past Anesthesia/Blood Transfusion Reactions: No Reported Reaction Additional Past Anesthesia/Blood Transfusion Reaction / Comm: Pt has never had. Date of Last Stent Placement:: 2009 Past Psychological History: Depression Additional Psychological History / Comment(s): reports mild depression Smoking Status: Former smoker Past Alcohol Use History: None Reported Additional Past Alcohol Use History / Comment(s): Patient was a smoker for 44 years and quit in 2003. No illicit drug use, no alcohol use. Past Drug Use History: None Reported - Past Family History Father Family Medical History: Cancer Additional Family Medical History / Comment(s): Father had prostate cancer. Mother Family Medical History: Chest Pain / Angina, Coronary Artery Disease (CAD) Medications and Allergies Home Medications Medication Instructions Recorded Confirmed Type Aspirin EC [Ecotrin] 325 mg PO DAILY@0800 01/22/15 10/08/22 History Carbidopa-Levodopa 25-100 mg 1 tab PO TID@0800,1400,2200 01/04/19 10/08/22 History [Sinemet 25-100 mg] Ezetimibe [Zetia] 10 mg PO HS@209907/04/20 10/08/22 History Hydroxyurea [Hydrea] 1,000 mg PO SUSA@0800 07/04/20 10/08/22 History Hydroxyurea [Hydrea] 500 mg PO TUWETHFR@0800 07/04/20 10/08/22 History Acetaminophen [Tylenol Extra 500 mg PO TID@0800,1200,1700 10/08/22 10/08/22 History Strength] Clopidogrel [Plavix] 75 mg PO DAILY@0810/08/22 10/08/22 History Cranberry Fruit Extract [Cranberry] 500 mg PO DAILY@0800 10/08/22 10/08/22 Hi story Diclofenac Sodium Gel [Voltaren 1 applic TOPICAL BID@0800,1700 10/08/22 10/08/22 History Gel] Ensure Enlive 120 ml PO DAILY@0810/08/22 10/08/22 History Escitalopram [Lexapro] 10 mg PO HS@209910/08/22 10/08/22 History L.acidoph,Paracasei, B.lactis 1 cap PO DAILY@0800 10/08/22 10/08/22 History [Probiotic] Loperamide HCl [Imodium A-D] 4 mg PO BID PRN 10/08/22 10/08/22 History Magnesium Hydroxide [Milk of 7,200 mg PO Q48H PRN 10/08/22 10/08/22 History Magnesia Concentrate] Melatonin 3 mg PO HS@209910/08/22 10/08/22 History Na Phos,M-B/Na Phos,Di-Ba [Fleet 133 ml RECTAL DAILY PRN 10/08/22 10/08/22 History Adult] QUEtiapine [SEROquel] 25 mg PO HS@209910/08/22 10/08/22 History bisacodyL [Dulcolax] 10 mg RECTAL DAILY PRN 10/08/22 10/08/22 History guaiFENesin [guaiFENesin Oral 200 mg PO Q4H PRN 10/08/22 10/08/22 History Solution] Allergies Allergy/AdvReac Type Severity Reaction Status Date / Time adhesive Allergy Rash/Hives Verified 10/08/22 15:23 Penicillins Allergy Rash/Hives Verified 10/08/22 15:23 shellfish derived [Shellfish] AdvReac Nausea & Verified 10/08/22 15:23 Vomiting & Diarrhea Physical Exam Vitals: Vital Signs Temp Pulse Pulse Resp BP BP Pulse Ox 10/09/22 07:38 98.5 F 83 17 97/67 98 10/09/22 02:00 98.8 F 86 17 92/67 96 10/08/22 20:00 97.8 F 108 H 19 141/93 93 L 10/08/22 18:13 97.4 F L 101 H 18 136/84 91 L 10/08/22 17:39 102 H 18 151/93 96 10/08/22 14:53 98.0 F 91 20 154/104 98 Intake and Output 10/08/22 10/09/22 10/09/22 22:59 06:59 14:59 Output Total 200 Balance -200 Output: Urine 200 Uretheral (Trimble) 200 Other: Voiding Method Indwelling Catheter Indwelling Catheter Weight 47.627 kg Results CBC & Chem 7: 10/08/22 15:24 10/08/22 15:24 Labs: Abnormal Lab Results - Last 24 Hours (Table) 10/08/22 10/08/22 10/08/22 Range/Units 15:24 15:24 15:24 RBC 3.64 L (3.80-5.40) m/uL MCV 107.6 H (80.0-100.0) fL APTT 21.6 L (22.0-30.0) sec BUN 21 H (7-17) mg/dL Glucose 117 H (74-99) mg/dL
[2022-10-09] MEDS ORDERED: LACTATED RINGERS 1,000 ML IV ONE (16:43)
[2022-10-09] MEDS ORDERED: NALOXONE 0.4 MG/ML 1 ML VIAL IV PRN (16:53)
[2022-10-09] MEDS ORDERED: HYDROmorphone 0.5 MG/0.5 ML SYRINGE IVP PRN ×3 (16:53)
--- NOTE | 2022-10-09 16:53 | P.HPOR ---
History of Present Illness H&P Date: 10/09/22 Chief Complaint: Right hip pain. Henna is an 82-year-old female with history of dementia and multiple medical comorbidities who fell yesterday at [facility], where she resides. She apparently tried to get up with her walker from the wheelchair and fell. She was found on the floor by staff. She had immediate complaint of right hip pain. The patient is on Plavix daily. She is admitted to our service for surgical intervention and care. Past Medical History Past Medical History: Blood Disorder, Coronary Artery Disease (CAD), GERD/Reflux, Myocardial Infarction (IA), Musculoskeletal Disorder, Neurologic Disorder, Osteoarthritis (OA) Additional Past Medical History / Comment(s): Parkinson's disease, thrombocythemia,macular degeneration Last Myocardial Infarction Date:: 2012 History of Any Multi-Drug Resistant Organisms: ESBL Date of last positivie culture/infection: 08/14/22 ESBL E.coli MDRO Source:: Urine Past Surgical History: Heart Catheterization, Heart Catheterization With Stent, Tonsillectomy, Tubal Ligation Additional Past Surgical History / Comment(s): 2003 PCI with 2 stents, 2009 PCI with 1 stent, 2012 cardiac cath-treat medically, bilateral cataract removals/lens implants, Past Anesthesia/Blood Transfusion Reactions: No Reported Reaction Additional Past Anesthesia/Blood Transfusion Reaction / Comment(s): Pt has never had. Date of Last Stent Placement:: 2009 Past Psychological History: Depression Additional Psychological History / Comment(s): reports mild depression Smoking Status: Former smoker Past Alcohol Use History: None Reported Additional Past Alcohol Use History / Comment(s): Patient was a smoker for 44 years and quit in 2003. No illicit drug use, no alcohol use. Past Drug Use History: None Reported - Past Family History Father Family Medical History: Cancer Additional Family Medical History / Comment(s): Father had prostate cancer. Mother Family Medical History: Chest Pain / Angina, Coronary Artery Disease (CAD) Medications and Allergies Home Medications Medication Instructions Recorded Confirmed Type Aspirin EC [Ecotrin] 325 mg PO DAILY@0800 01/22/15 10/08/22 History Carbidopa-Levodopa 25-100 mg 1 tab PO TID@0800,1400,2200 01/04/19 10/08/22 History [Sinemet 25-100 mg] Ezetimibe [Zetia] 10 mg PO HS@2100 07/04/2010/08/23 History Hydroxyurea [Hydrea] 1,000 mg PO SUSA@0800 07/04/20 10/08/22 History Hydroxyurea [Hydrea] 500 mg PO TUWETHFR@0800 07/04/20 10/08/22 History Acetaminophen [Tylenol Extra 500 mg PO TID@0800,1200,1700 10/08/22 10/08/22 History Strength] Clopidogrel [Plavix] 75 mg PO DAILY@0810/08/22 10/08/22 History Cranberry Fruit Extract [Cranberry] 500 mg PO DAILY@0810/08/22 10/08/22 History Diclofenac Sodium Gel [Voltaren 1 applic TOPICAL BID@0800,1700 10/08/22 10/08/22 History Gel] Ensure Enlive 120 ml PO DAILY@0810/08/22 10/08/22 History Escitalopram [Lexapro] 10 mg PO HS@209910/08/22 10/08/22 History L.acidoph,Paracasei, B.lactis 1 cap PO DAILY@0810/08/22 10/08/22 History [Probiotic] Loperamide HCl [Imodium A-D] 4 mg PO BID PRN 10/08/22 10/08/22 History Magnesium Hydroxide [Milk of 7,200 mg PO Q48H PRN 10/08/22 10/08/22 History Magnesia Concentrate] Melatonin 3 mg PO HS@209910/08/22 10/08/22 History Na Phos,M-B/Na Phos,Di-Ba [Fleet 133 ml RECTAL DAILY PRN 10/08/22 10/08/22 History Adult] QUEtiapine [SEROquel] 25 mg PO HS@209910/08/22 10/08/22 History bisacodyL [Dulcolax] 10 mg RECTAL DAILY PRN 10/08/22 10/08/22 History guaiFENesin [guaiFENesin Oral 200 mg PO Q4H PRN 10/08/22 10/08/22 History Solution] Allergies Allergy/AdvReac Type Severity Reaction Status Date / Time adhesive Allergy Rash/Hives Verified 10/08/22 15:23 Penicillins Allergy Rash/Hives Verified 10/08/22 15:23 shellfish derived [Shellfish] AdvReac Nausea & Verified 06/13/23 15:23 Vomiting & Diarrhea Physical Examination This is a pleasant 82-year-old female in no acute distress. She is alert but confused. She is a poor historian. Family is present at bedside. Exam of the head neck reveal no obvious deformity. She has no obvious limitations and cervical rotation. Nontender over the cervical spinous processes. Exam of the lower extremities reveals mild swelling to the right hip. There is slight swelling to the right knee as well. She is unable to actively move the right leg. She has slight shortening of the right leg. She has full foot and ankle motion without difficulty or pain. Neurovascular status to the lower extremity is intact. Results X-rays of the right hip and pelvis reveal a displaced femoral neck fracture. No other fractures identified. - Labs Labs: H & H 10/08/22 Range/Units 15:24 Hgb 12.3 (11.4-16.0) gm/dL Hct 39.2 (34.0-46.0) % Coagulation 10/08/22 Range/Units 15:24 INR 1.0 (<1.2) Result Diagrams: 10/08/22 15:24 10/08/22 15:24 Assessment and Plan (1) Subcapital fracture of right hip Current Visit: Yes Status: Acute Code(s): S72.011A - UNSP INTRACAPSULAR FRACTURE OF RIGHT FEMUR, INIT FOR CLOS FX SNOMED Code(s): 491378638 (2) Fracture of hip Current Visit: Yes Status: Acute Code(s): S72.009A - FRACTURE OF UNSP PART OF NECK OF UNSP FEMUR, INIT SNOMED Code(s): 756288000 Plan: The clinical and x-ray findings are discussed with the patient and her family. It is recommended she undergo hemiarthroplasty of the right hip with direct anterior approach. The procedures been discussed in detail including the possible risks and outcomes. The patient has been cleared by medicine for the surgery today. I anticipate return to [facility] when cleared medically.
[2022-10-09] MEDS ORDERED: SUCCINYLCHOLINE CHLORIDE 200 MG/10 ML VIAL IV ONE (17:06)
[2022-10-09] MEDS ORDERED: PROPOFOL 10 MG/ML 20 ML VIAL IV ONE (17:06)
[2022-10-09] MEDS ORDERED: TRANEXAMIC 1,000 MG/100ML-NACL PREMIX BAG ONE (17:06)
[2022-10-09] MEDS ORDERED: fentaNYL (PF) 50 MCG/ML 2 ML AMP ONE (17:06)
[2022-10-09] MEDS ORDERED: LIDOCAINE 2% INJ 20 MG/ML (2 ML VIAL) ONE (17:06)
[2022-10-09] MEDS: KETOROLAC 15 MG/ML 1 ML VIAL IVP SCH (18:02)
[2022-10-09] MEDS: ACETAMINOPHEN TAB 500 MG TAB PO SCH (18:02)
[2022-10-09] MEDS: SODIUM CHLORIDE 0.9% 1,000 ML IV SCH (18:02)
[2022-10-09] MEDS: DICLOFENAC SODIUM GEL 100 GM TUBE TOPICAL SCH (18:02)
--- NOTE | 2022-10-09 18:24 | FL ---
Intraoperative/procedural fluoroscopic services were provided. Total fluoroscopy time is 8 seconds wi th a total of 2 submitted images to PACS. Please see the operative/procedural note for further detail s. DAP: 0.2107 Gycm2
[2022-10-09] MEDS: EZETIMIBE 10 MG TAB PO SCH (21:15)
[2022-10-09] MEDS: QUEtiapine 25 MG TAB PO SCH (21:15)
[2022-10-09] MEDS: ESCITALOPRAM 10 MG TAB PO SCH (21:15)
[2022-10-09] MEDS: traMADol 50 MG TAB PO PRN (21:15)
[2022-10-10] MEDS: KETOROLAC 15 MG/ML 1 ML VIAL IVP SCH ×4 (00:29→18:20)
[2022-10-10 07:01] LABS: Basophils % (A) 0 %; Eosinophils # (A) 0.1 k/uL (0-0.7); Eosinophils % (A) 2 %; HCT 35.8 % (34.0-46.0); HGB 11.1 gm/dL (11.4-16.0); Hypochromasia Moderate; Lymphocytes # (A) 0.7 k/uL (1.0-4.8); Lymphocytes % (A) 15 %; MCH 33.7 pg (25.0-35.0); MCHC 30.9 g/dL (31.0-37.0); MCV 109.1 fL (80.0-100.0); Macrocytosis Marked; Mean Platelet Volume 9.1; Monocytes # (A) 0.3 k/uL (0-1.0); Monocytes % (A) 7 %; Neutrophils # (A) 3.4 k/uL (1.3-7.7); Neutrophils % (A) 74 %; Platelet Count 252 k/uL (150-450); RBC 3.28 m/uL (3.80-5.40); RDW 14.5 % (11.5-15.5); WBC 4.7 k/uL (3.8-10.6)
[2022-10-10] MEDS ORDERED: NON FORMULARY DRUG (Ensure Enlive 120 ML) PO SCH (08:00)
[2022-10-10] MEDS: traMADol 50 MG TAB PO PRN (08:05)
[2022-10-10] MEDS: CLOPIDOGREL 75 MG TAB PO SCH (08:07)
[2022-10-10] MEDS: ACETAMINOPHEN TAB 500 MG TAB PO SCH ×3 (08:07→17:24)
[2022-10-10] MEDS: CARBIDOPA-LEVODOPA 25-100 MG 1 EACH TAB PO SCH ×3 (08:07→21:25)
[2022-10-10] MEDS: HYDROXYUREA 500 MG CAP PO SCH (08:08)
[2022-10-10] MEDS: DICLOFENAC SODIUM GEL 100 GM TUBE TOPICAL SCH ×2 (08:09→17:24)
[2022-10-10] MEDS: NON FORMULARY DRUG (Cranberry Fruit Extract [Cranberry] 500 MG Tablet) PO SCH (08:09)
[2022-10-10] MEDS: LACTOBACILLUS ACIDOPH & BULGAR 1 EACH PACKET PO SCH (08:57)
--- NOTE | 2022-10-10 09:48 | P.PN ---
Subjective Progress Note Date: 10/10/22 This patient is an 82- year old female who is status-post direct anterior right hip hemiarthroplasty on 10/09/[address] Swartz. Today is post-operative day #1. Patient is examined bedside this morning. She states her pain is well-controlled and she has no complaints. Daughter is bedside. No concerns. Vital signs stable. Objective - Vital Signs Vital signs: Vital Signs Temp 97.5 F L 10/10/22 07:33 Pulse 85 10/10/22 07:33 Resp 19 10/10/22 07:33 BP 112/76 10/10/22 07:33 Pulse Ox 100 10/10/22 07:33 FiO2 Intake & Output 10/09/22 10/10/22 10/10/22 18:59 06:59 18:59 Intake Total 550 725 Output Total 550 220 Balance 0 505 Intake: IV 550 100 Intake, IV Titration 625 Amount Sodium Chloride 0.9% 1, 575 000 ml @ 50 mls/hr IV . Q20H JAY Rx#:[id number] ceFAZolin 2 gm In Sodium 50 Chloride 0.9% 50 ml @ 100 mls/hr IVPB Q8HR JAY Rx# :[id number] Output: Urine 450 220 Estimated Blood Loss 100 Other: Voiding Method Indwelling Catheter Indwelling Catheter Indwelling Catheter # Bowel Movements 0 - Exam On examination, patient is sitting up in bed in no apparent distress. She is alert and answers questions appropriately. On inspection of the right hip, there is a clean, dry, intact Optifoam dressing in place. No bleeding or drainage through the dressing. Mild swelling of the thigh, thigh is soft and compressible. Motor and sensory function is intact of the right lower extremity. Right lower extremity is warm and well perfused. Calf non-tender. - Labs CBC & Chem 7: 10/10/22 05:31 10/08/22 15:24 Labs: Abnormal Lab Results - Last 24 Hours (Table) 10/10/22 Range/Units 05:31 RBC 3.28 L (3.80-5.40) m/uL Hgb 11.1 L (11.4-16.0) gm/dL MCV 109.1 H (80.0-100.0) fL MCHC 30.9 L (31.0-37.0) g/dL Macrocytosis Marked A Assessment and Plan Assessment: Status-post direct anterior right hip hemiarthroplasty on 10/09/[address] Swartz. Post-op day #1. Plan: - Weight bear to tolerance on operative extremity with a walker. Up with assistance. Fall precautions. - Physical therapy for gait and balance training. - Keep operative dressing in place. - Pain medication as needed. May resume Plavix for DVT prophylaxis. - Internal medicine for brenda-op medical management. - Case management consulted for discharge planning. Anticipate discharge back to [facility].
[2022-10-10] MEDS: HYDROcodone/APAP 5-325MG 1 EACH TAB PO PRN ×2 (10:38→22:40)
[2022-10-10] MEDS: SODIUM CHLORIDE 0.9% 1,000 ML IV SCH ×2 (12:27→21:35)
[2022-10-10] MEDS: EZETIMIBE 10 MG TAB PO SCH (21:25)
[2022-10-10] MEDS: ESCITALOPRAM 10 MG TAB PO SCH (21:25)
[2022-10-10] MEDS: QUEtiapine 25 MG TAB PO SCH (21:25)
[2022-10-11] MEDS: KETOROLAC 15 MG/ML 1 ML VIAL IVP SCH ×4 (00:36→17:59)
[2022-10-11] MEDS: traMADol 50 MG TAB PO PRN (01:25)
--- NOTE | 2022-10-11 03:48 | P.PN ---
Subjective Progress Note Date: 10/10/22 - Reason for Consult Consult date: 10/09/22 Medical clearance/medical management status post right prox femoral neck fx - History of Present Illness This is a Pleasant 82-year-old female who resides at [facility] and follows with Dr. Coats at the facility with past medical history of thrombocythemia, macular degeneration, history of coronary artery disease with myocardial infarction and stenting in 2012, GERD, osteoarthritis, Parkinson's disease and depression. Patient reports to being a former smoker and denies any other illic it drug use or alcohol. Patient at [facility] attempting occupational therapy and patient becoming progressively more weak and having falls with more frequent falls due to her Parkinson's and fell having some right hip pain. X-ray of the hip and pelvis showed an acute mildly displaced right proximal femoral neck fracture and the displacement is approximately 2.4 cm with no dislocation noted. Chest x-ray shows chronic changes without any evidence of acute process, EKG showed sinus rhythm. Labs reviewed and within normal limits with a hemoglobin of 12.3, sodium 137, potassium 4.1, creatinine 0.57. Patient was admitted to orthopedic services and planning for surgical intervention of the right hip fracture sometime this afternoon. Patient is medically stable and low to moderate risk for surgical intervention. Medical management was placed as a consult and will continue to follow. 10/10/2022 Patient is seen and evaluated in follow-up today status post right hip hemiarthroplasty anterior approach postop day 1. Patient is currently sitting up in the chair with daughter at the bedside. Patient is afebrile continued on oxygen 2 L of oxygen saturation is 99-100% recommend weaning FiO2 as tolerated. Recommend incentive spirometer at least 10 times every hour while awake. Encouraged oral intake. Daughter reports she worked with physical therapy today with getting up out of the bed and assisting to the chair. Patient will be returning to [facility] and will be continued on rehab postsurgery. Patient is continued on Plavix and daughter reports history of a blood clot in the left upper arm when she broke her humerus and concerned possibly apply, and her leg developing. Patient will be started on eliquis 2.5 mg twice a day for 4 weeks. Patient denies chest pain or shortness of breath. No reports of nausea or vomiting noted and tolerating [place] thus far. Would recommend limiting narcotic agents given patient age. Review of systems: Constitutional: No reports of fatigue, fever, or chills Cardiovascular: No reports of chest pain or palpitations Respiratory: No reports of shortness of breath or cough GI: No reports of nausea, vomiting, or diarrhea : No reports of dysuria or retention Neurovascular: reports of generalized weakness and some right hip painr numbn ess All medications have been reviewed PHYSICAL EXAMINATION: GENERAL: The patient is alert and oriented x2-3, elderly appearing, thin built HEENT: Pupils are round and equally reacting to light. EOMI. no scleral icterus. No conjunctival pallor. Normocephalic, atraumatic. No pharyngeal erythema. No thyromegaly. CARDIOVASCULAR: S1 and S2 muffled PULMONARY: diminished breath sounds bilaterally with no wheezing or rhonchi noted. ABDOMEN: soft. Nontender on exam. obese. non-distended, normoactive bowel sounds. No palpable organomegaly. MUSCULOSKELETAL: No joint swelling or deformity. EXTREMITIES: No cyanosis, clubbing, or pedal edema. Right lower extremit surgical dressing is dry and intact with some minimal swelling and bruising noted in the groin soft and palpable NEUROLOGICAL: Gross neurological examination did not reveal any focal deficits. Parkinsonian movements of the hands with faint twitch is noted of the lower extremities Diffuse weakness SKIN: No rashes. Assessment: Mildly displaced acute right proximal femoral neck fracture secondary to Fall Status post right hip hemiarthroplasty Increased weakness and more frequent falling Altered mentation with some hallucinations most likely toxic encephalopathy secondary to medication effect of morphine, improved History of Parkinson's History of coronary artery disease History of myocardial infarction with stenting in the past History of depression Gastroesophageal reflux disease History of DVT per daughter in the left upper extremity after humeral fracture Thrombocythemia GI prophylaxis DVT prophylaxis Full code Plan: Recommend to continue with current medications and management per orthopedic services. Patient underwent right hemiarthroplasty and tolerated the procedure well Patient working with physical therapy and would recommend daily as patient will be returning to [facility] Encouraged oral intake and daughter reports a most breakfast Incentive spirometer encouraged at least 10 times every hour while awake Patient continues with indwelling Trimble catheter would recommend removing and monitor for any retention Recommend limiting narcotic agents and recommend continue using Toradol, Tyleno l, or [place] as for severe pain Plavix was resumed and would recommend eliquis 2.5 mg twice a day Home medications will be reviewed and resumed as appropriate. We will continue to follow with orthopedic surgery hospitalization. Thank you kindly for this consultation The impression and plan of care has been dictated by Lissette Aiken, nurse practitioner as directed. Dr. Shagufta MD I have performed a history and examination and MDM of this patient, discussed the same with the dictator, and agree with the dictator's assessment and plan as written ,documented as a scribe. Based on total visit time, I have performed more than 50% of the visit. Any additional findings or plans will be noted. Objective - Vital Signs Vital signs: Vital Signs Temp 97.5 F L 10/10/22 07:33 Pulse 85 10/10/22 07:33 Resp 19 10/10/22 07:33 BP 112/76 10/10/22 07:33 Pulse Ox 100 10/10/22 07:33 FiO2 Intake & Output 10/09/22 10/10/22 10/10/22 18:59 06:59 18:59 Intake Total 550 725 Output Total 550 220 Balance 0 505 Intake: IV 550 100 Intake, IV Titration 625 Amount Sodium Chloride 0.9% 1, 575 000 ml @ 50 mls/hr IV . Q20H JAY Rx#:[id number] ceFAZolin 2 gm In Sodium 50 Chloride 0.9% 50 ml @ 100 mls/hr IVPB Q8HR JAY Rx# :[id number] Output: Urine 450 220 Estimated Blood Loss 100 Other: Voiding Method Indwelling Catheter Indwelling Catheter Indwelling Catheter # Bowel Movements 0 - Labs CBC & Chem 7: 10/10/22 05:31 10/08/22 15:24 Labs: Abnormal Lab Results - Last 24 Hours (Table) 10/10/22 Range/Units 05:31 RBC 3.28 L (3.80-5.40) m/uL Hgb 11.1 L (11.4-16.0) gm/dL MCV 109.1 H (80.0-100.0) fL MCHC 30.9 L (31.0-37.0) g/dL Lymphocytes # 0.7 L (1.0-4.8) k/uL Macrocytosis Marked A
[2022-10-11] MEDS: CARBIDOPA-LEVODOPA 25-100 MG 1 EACH TAB PO SCH ×3 (08:37→21:51)
[2022-10-11] MEDS: CLOPIDOGREL 75 MG TAB PO SCH (08:37)
[2022-10-11] MEDS: APIXABAN 2.5 MG TABLET PO SCH ×2 (08:37→21:51)
[2022-10-11] MEDS: LACTOBACILLUS ACIDOPH & BULGAR 1 EACH PACKET PO SCH (08:38)
[2022-10-11] MEDS: NON FORMULARY DRUG (Cranberry Fruit Extract [Cranberry] 500 MG Tablet) PO SCH (08:38)
[2022-10-11] MEDS: DICLOFENAC SODIUM GEL 100 GM TUBE TOPICAL SCH ×2 (08:38→18:24)
[2022-10-11] MEDS: HYDROXYUREA 500 MG CAP PO SCH (08:39)
--- NOTE | 2022-10-11 09:40 | P.PN ---
Subjective Progress Note Date: 10/11/22 This is an 82-year-old female who is status post direct anterior approach right hip hemiarthroplasty. This is postoperative day #2 and patient is seen and evaluated at bedside today. Objective - Vital Signs Vital signs: Vital Signs Temp 98.0 F 10/11/22 07:11 Pulse 78 10/11/22 07:11 Resp 16 10/11/22 07:11 BP 108/70 10/11/22 07:11 Pulse Ox 93 L 10/11/22 09:18 FiO2 Intake & Output 10/10/22 10/11/22 10/11/22 18:59 06:59 18:59 Intake Total 700 Output Total 125 250 Balance -125 450 Intake: Intake, IV Titration 600 Amount Sodium Chloride 0.9% 1, 600 000 ml @ 50 mls/hr IV . Q20H JAY Rx#:[id number] Oral 100 Output: Urine 125 250 Other: Voiding Method Indwelling Catheter Indwelling Catheter - Exam Vital signs are stable. Patient is in no acute distress and is alert and oriented 3. Calf is soft and nontender to palpation. Dressing is clean, dry, and intact. Patient has full foot and ankle motion without pain or difficulty. Sensation intact. Neurovascular status and circulatory status are intact. - Labs CBC & Chem 7: 10/10/22 05:31 10/08/22 15:24 Labs: Abnormal Lab Results - Last 24 Hours (Table) 10/10/22 Range/Units 05:31 Lymphocytes # 0.7 L (1.0-4.8) k/uL Assessment and Plan (1) S/P hip hemiarthroplasty Current Visit: Yes Status: Acute Code(s): Z96.649 - PRESENCE OF UNSPECIFIED ARTIFICIAL HIP JOINT SNOMED Code(s): 109716665 (2) Subcapital fracture of right hip Current Visit: Yes Status: Acute Code(s): S72.011A - UNSP INTRACAPSULAR FRACTURE OF RIGHT FEMUR, INIT FOR CLOS FX SNOMED Code(s): 962339797 Plan: Continue routine postop care and pain control. Continue anticoagulation with Eliquis per internal medicine. Weightbearing as tolerated with a walker. Leave dressing in place for 7 days. Appreciate input from medicine. Anticipate discharge back to [facility] once cleared medically.
--- NOTE | 2022-10-11 11:39 | XR ---
EXAMINATION TYPE: XR chest 1V portable DATE OF EXAM: 10/11/2022 COMPARISON: 10/08/2022 INDICATION: Short of breath TECHNIQUE: Single frontal view of the chest is obtained. Patient is rotated to the left. FINDINGS: The heart size is upper limits of normal. The pulmonary vasculature is normal. The lungs are clear. Minimal costophrenic angle pleural effusions may be present. There may be a prior fracture of the left humeral neck. IMPRESSION: 1. Suggestion of small bilateral pleural effusions
[2022-10-11] MEDS ORDERED: FUROSEMIDE 10 MG/ML 2 ML VIAL IV ONE (15:20)
[2022-10-11] MEDS ORDERED: LATANOPROST 0.005% OPHTH DROPS 2.5 ML BTL RIGHT EYE SCH (21:00)
[2022-10-11] MEDS: EZETIMIBE 10 MG TAB PO SCH (21:50)
[2022-10-11] MEDS: ESCITALOPRAM 10 MG TAB PO SCH (21:51)
[2022-10-11] MEDS: QUEtiapine 25 MG TAB PO SCH (21:51)
[2022-10-12] MEDS: KETOROLAC 15 MG/ML 1 ML VIAL IVP SCH ×2 (00:50→06:45)
[2022-10-12] MEDS: SODIUM CHLORIDE 0.9% 1,000 ML IV SCH (02:57)
--- NOTE | 2022-10-12 05:03 | P.PN ---
Subjective Progress Note Date: 10/11/22 - Reason for Consult Consult date: 10/09/22 Medical clearance/medical management status post right prox femoral neck fx - History of Present Illness This is a Pleasant 82-year-old female who resides at [facility] and follows with Dr. Coats at the facility with past medical history of thrombocythemia, macular degeneration, history of coronary artery disease with myocardial infarction and stenting in 2012, GERD, osteoarthritis, Parkinson's disease and depression. Patient reports to being a former smoker and denies any other illic it drug use or alcohol. Patient at [facility] attempting occupational therapy and patient becoming progressively more weak and having falls with more frequent falls due to her Parkinson's and fell having some right hip pain. X-ray of the hip and pelvis showed an acute mildly displaced right proximal femoral neck fracture and the displacement is approximately 2.4 cm with no dislocation noted. Chest x-ray shows chronic changes without any evidence of acute process, EKG showed sinus rhythm. Labs reviewed and within normal limits with a hemoglobin of 12.3, sodium 137, potassium 4.1, creatinine 0.57. Patient was admitted to orthopedic services and planning for surgical intervention of the right hip fracture sometime this afternoon. Patient is medically stable and low to moderate risk for surgical intervention. Medical management was placed as a consult and will continue to follow. 10/10/2022 Patient is seen and evaluated in follow-up today status post right hip hemiarthroplasty anterior approach postop day 1. Patient is currently sitting up in the chair with daughter at the bedside. Patient is afebrile continued on oxygen 2 L of oxygen saturation is 99-100% recommend weaning FiO2 as tolerated. Recommend incentive spirometer at least 10 times every hour while awake. Encouraged oral intake. Daughter reports she worked with physical therapy today with getting up out of the bed and assisting to the chair. Patient will be returning to [facility] and will be continued on rehab postsurgery. Patient is continued on Plavix and daughter reports history of a blood clot in the left upper arm when she broke her humerus and concerned possibly apply, and her leg developing. Patient will be started on eliquis 2.5 mg twice a day for 4 weeks. Patient denies chest pain or shortness of breath. No reports of nausea or vomiting noted and tolerating [place] thus far. Would recommend limiting narcotic agents given patient age. 10/11/2022 Patient is seen and evaluated in follow-up today currently resting but arousable. Patient had indwelling Trimble catheter removed and due to void. Patient is maintained on gentle IV hydration and daughter at bedside with multiple concerns including dehydration and she felt her urine appeared concentrated and reports has not been eating or drinking much. Concerns with some overload versus atelectasis as patient has not been getting up much and needs to sit up in the chair more often will obtain a chest x-ray. Encouraged incentive spirometer at least 10 times every hour while awake and per nursing staff patient is not doing. Encouraged physical therapy daily for continued strength and mobility. Will follow-up with some repeat labs. Encouraged oral intake and will add oral supplements. Patient is currently afebrile with no reports of chest pain or shortness of breath. Patient has not reported any nausea or vomiting. Review of systems: Constitutional: No reports of fatigue, fever, or chills Cardiovascular: No reports of chest pain or palpitations Respiratory: No reports of shortness of breath or cough GI: No reports of nausea, vomiting, or diarrhea, reports passing gas with no bowel movement : No reports of dysuria or retention Neurovascular: reports of generalized weakness and some right hip pain All medications have been reviewed PHYSICAL EXAMINATION: GENERAL: The patient is alert and oriented x2, pleasantly confused at times, elderly appearing, thin built HEENT: Pupils are round and equally reacting to light. EOMI. no scleral icterus. No conjunctival pallor. Normocephalic, atraumatic. No pharyngeal erythema. No thyromegaly. CARDIOVASCULAR: S1 and S2 muffled PULMONARY: diminished breath sounds bilaterally with no wheezing or rhonchi noted. ABDOMEN: soft. Nontender on exam. non-distended, normoactive bowel sounds. No palpable organomegaly. MUSCULOSKELETAL: No joint swelling or deformity. EXTREMITIES: No cyanosis, clubbing, or pedal edema. Right lower extremity surgical dressing is dry and intact with some minimal swelling and bruising noted in the groin soft and palpable NEUROLOGICAL: Gross neurological examination did not reveal any focal deficits. Parkinsonian movements of the hands with faint twitch is noted of the lower extremities Diffuse weakness SKIN: No rashes. Assessment: Mildly displaced acute right proximal femoral neck fracture secondary to Fall Status post right hip hemiarthroplasty on 10/10/2022 Increased weakness and more frequent falling Altered mentation with some hallucinations most likely toxic encephalopathy secondary to medication effect of morphine, improved History of Parkinson's History of coronary artery disease History of myocardial infarction with stenting in the past History of depression Gastroesophageal reflux disease History of DVT per daughter in the left upper extremity after humeral fracture Thrombocythemia GI prophylaxis DVT prophylaxis Full code Plan: Recommend to continue with current medications and management per orthopedic services. Patient underwent right hemiarthroplasty and tolerated the procedure well. Surgical site dressing is dry and intact Patient working with physical therapy and would recommend daily as patient will be returning to [facility] Encouraged oral intake and daughter reports not eating or drinking much with concerns of dehydration. Patient is maintained on gentle IV hydration with some concerns of some mild volume overload and chest x-ray obtained showing small effusions at the bases will give a small dose of Lasix Incentive spirometer encouraged at least 10 times every hour while awake. Per nursing staff patient is not using this and needs strong encouragement Patient continues with indwelling Trimble catheter that was just removed prior to exam and due to void Recommend limiting narcotic agents and recommend continue using Toradol, Tylenol, or [place] as for severe pain. Patient reports has been using Toradol today. Patient was continued confusion although was this way on admission as well. Concerns for possible hospital-acquired delirium and would recommend opening the blinds in the a.m. and frequent reorientation as needed. Encouraged sitting up in the chair more often and increased activity as tolerated. Daughter reports some right eye drainage that has been ongoing for over 6 weeks and will provide an eyedrop and monitor Plavix was resumed and would recommend eliquis 2.5 mg twice a day Home medications will be reviewed and resumed as appropriate. We will continue to follow with orthopedic surgery hospitalization. Thank you kindly for this consultation The impression and plan of care has been dictated by Lissette Aiken, nurse practitioner as directed. Dr. Shagufta MD I have performed a history and examination and MDM of this patient, discussed the same with the dictator, and agree with the dictator's assessment and plan as written ,documented as a scribe. Based on total visit time, I have performed more than 50% of the visit. Any additional findings or plans will be noted. Objective - Vital Signs Vital signs: Vital Signs Temp 98.0 F 10/11/22 07:11 Pulse 78 10/11/22 07:11 Resp 16 10/11/22 07:11 BP 108/70 10/11/22 07:11 Pulse Ox 92 L 10/11/22 07:11 FiO2 Intake & Output 10/10/22 10/11/22 10/11/22 18:59 06:59 18:59 Intake Total 700 Output Total 125 250 Balance -125 450 Intake: Intake, IV Titration 600 Amount Sodium Chloride 0.9% 1, 600 000 ml @ 50 mls/hr IV . Q20H [facility] Rx#:[id number] Oral 100 Output: Urine 125 250 Other: Voiding Method Indwelling Catheter Indwelling Catheter - Labs CBC & Chem 7: 10/10/22 05:31 10/08/22 15:24 Labs: Abnormal Lab Results - Last 24 Hours (Table) 10/10/22 Range/Units 05:31 Lymphocytes # 0.7 L (1.0-4.8) k/uL
[2022-10-12 06:55] LABS: Basophils % (A) 0 %; Eosinophils # (A) 0.1 k/uL (0-0.7); Eosinophils % (A) 2 %; HCT 29.3 % (34.0-46.0); Hypochromasia Slight; Lymphocytes % (A) 20 %; MCH 33.4 pg (25.0-35.0); MCHC 30.7 g/dL (31.0-37.0); MCV 108.8 fL (80.0-100.0); Macrocytosis Marked; Mean Platelet Volume 8.4; Monocytes # (A) 0.4 k/uL (0-1.0); Monocytes % (A) 8 %; Neutrophils # (A) 3.5 k/uL (1.3-7.7); Neutrophils % (A) 67 %; Platelet Count 292 k/uL (150-450); RDW 14.5 % (11.5-15.5); WBC 5.3 k/uL (3.8-10.6)
[2022-10-12 07:09] LABS: African American GFR (CKD) >90 (>60 ml/min/1.73 sqM); Anion Gap 4 mmol/L; Blood Urea Nitrogen 17 mg/dL (7-17); Calcium 7.6 mg/dL (8.4-10.2); Carbon Dioxide 25 mmol/L (22-30); Chloride 107 mmol/L (98-107); Glucose 75 mg/dL (74-99); Magnesium 1.9 mg/dL (1.6-2.3); Non-African American GFR(CKD) >90 (>60 ml/min/1.73 sqM); Sodium 136 mmol/L (137-145)
[2022-10-12] MEDS ORDERED: LACTOBACILLUS ACIDOPHILUS/PECT 1 EACH CAPSULE PO SCH (08:00)
[2022-10-12] MEDS ORDERED: HYDROXYUREA 500 MG CAP PO SCH (08:00)
[2022-10-12] MEDS: APIXABAN 2.5 MG TABLET PO SCH (09:14)
[2022-10-12] MEDS: CLOPIDOGREL 75 MG TAB PO SCH (09:14)
[2022-10-12] MEDS: traMADol 50 MG TAB PO PRN (09:14)
[2022-10-12] MEDS: CARBIDOPA-LEVODOPA 25-100 MG 1 EACH TAB PO SCH (09:14)
[2022-10-12] MEDS: NON FORMULARY DRUG (Cranberry Fruit Extract [Cranberry] 500 MG Tablet) PO SCH (09:17)
[2022-10-12] MEDS: DICLOFENAC SODIUM GEL 100 GM TUBE TOPICAL SCH (09:23)
--- NOTE | 2022-10-12 11:08 | P.DS ---
Providers Date of admission: 10/08/22 16:57 Expected date of discharge: 10/12/22 Attending physician: Gerry Swartz Consults: 10/08/22 16:56 Consult Physician Routine Consulting Provider: Wes Eagle Consult Reason/Comments: medicalcare Do you want consulting provider notified?: Yes Primary care physician: [facility] Course: This is an 82-year-old female who presented to [facility] ED on 10/08/22 after falling and sustaining injury to the right hip. On exam and x-ray in the emergency department she was found to have a right femoral neck fracture. The patient was admitted under the care of Dr. Swartz for surgical intervention and care, with a consultation placed to internal medicine for perioperative medical management. The patient is taken to surgery for hemiarthroplasty of the right hip on 10/09/22. The procedure is performed without complication or sequelae. The patient is doing well postoperatively. Vital signs are stable on postop day #3. The patient was examined bedside this morning. Patient states her pain is very well-controlled. Patient has worked with physical therapy. She is tolerating her diet well. She overall feels well today. She denies chest pain, shortness breath, nausea, vomiting, fevers, chills. Vital signs stable. On examination, the patient is sitting up in bed in no apparent distress. She is alert and oriented 3. On inspection of the right hip, there is a clean, dry, intact dressing in place. There is no drainage through the dressing. Right lower extremity is warm and well-perfused with brisk capillary refill. Motor and sensory function is intact of the right lower extremity. RLE warm and well perfused. The calves are soft and non-tender to palpation bilaterally. The patient is discharged to rehab pending medical clearance today. Please refer to the med rec for accurate list of medications. She should follow-up at [facility] in two weeks. Plan - Discharge Summary Discharge Rx Participant: No New Discharge Prescriptions: New Apixaban [Eliquis] 2.5 mg PO BID tab HYDROcodone/APAP 5-325MG [[place] 5-325] 1 tab PO Q6HR PRN #30 tab PRN Reason: Pain Sennosides [Senokot] 2 tab PO DAILY PRN #60 tablet PRN Reason: Constipation Continue Carbidopa-Levodopa 25-100 mg [Sinemet 25-100 mg] 1 tab PO TID@0800,1400,2200 Ezetimibe [Zetia] 10 mg PO HS@2100 Hydroxyurea [Hydrea] 500 mg PO TUWETHFR@0800 Hydroxyurea [Hydrea] 1,000 mg PO SUSA@0800 Loperamide HCl [Imodium A-D] 4 mg PO BID PRN PRN Reason: Diarrhea guaiFENesin [guaiFENesin Oral Solution] 200 mg PO Q4H PRN PRN Reason: Cough Na Phos,M-B/Na Phos,Di-Ba [Fleet Adult] 133 ml RECTAL DAILY PRN PRN Reason: Constipation Diclofenac Sodium Gel [Voltaren Gel] 1 applic TOPICAL BID@0800,1700 Escitalopram [Lexapro] 10 mg PO HS@2100 Cranberry Fruit Extract [Cranberry] 500 mg PO DAILY@0800 bisacodyL [Dulcolax] 10 mg RECTAL DAILY PRN PRN Reason: Constipation Acetaminophen [Tylenol Extra Strength] 500 mg PO TID@0800,1200,1700 QUEtiapine [SEROquel] 25 mg PO HS@2100 Clopidogrel [Plavix] 75 mg PO DAILY@0800 Melatonin 3 mg PO HS@2100 L.acidoph,Paracasei, B.lactis [Probiotic] 1 cap PO DAILY@0800 Ensure Enlive 120 ml PO DAILY@0800 Magnesium Hydroxide [Milk of Magnesia Concentrate] 7,200 mg PO Q48H PRN PRN Reason: Constipation Discontinued Aspirin EC [Ecotrin] 325 mg PO DAILY@0800 Discharge Medication List Carbidopa-Levodopa 25-100 mg [Sinemet 25-100 mg] 1 tab PO TID@0800,1400,2200 01/04/19 [History] Ezetimibe [Zetia] 10 mg PO HS@2100 07/04/20 [History] Hydroxyurea [Hydrea] 1,000 mg PO SUSA@0800 07/04/20 [History] Hydroxyurea [Hydrea] 500 mg PO TUWETHFR@0800 07/04/20 [History] Acetaminophen [Tylenol Extra Strength] 500 mg PO TID@0800,1200,1700 10/08/22 [H istory] Clopidogrel [Plavix] 75 mg PO DAILY@0800 10/08/22 [History] Cranberry Fruit Extract [Cranberry] 500 mg PO DAILY@79910/08/22 [History] Diclofenac Sodium Gel [Voltaren Gel] 1 applic TOPICAL BID@0800,1700 10/08/22 [History] Ensure Enlive 120 ml PO DAILY@79910/08/22 [History] Escitalopram [Lexapro] 10 mg PO HS@209910/08/22 [History] L.acidoph,Paracasei, B.lactis [Probiotic] 1 cap PO DAILY@79910/08/22 [History] Loperamide HCl [Imodium A-D] 4 mg PO BID PRN 10/08/22 [History] Magnesium Hydroxide [Milk of Magnesia Concentrate] 7,200 mg PO Q48H PRN 10/08/22 [History] Melatonin 3 mg PO HS@209910/08/22 [History] Na Phos,M-B/Na Phos,Di-Ba [Fleet Adult] 133 ml RECTAL DAILY PRN 10/08/22 [History] QUEtiapine [SEROquel] 25 mg PO HS@209910/08/22 [History] bisacodyL [Dulcolax] 10 mg RECTAL DAILY PRN 10/08/22 [History] guaiFENesin [guaiFENesin Oral Solution] 200 mg PO Q4H PRN 10/08/22 [History] Apixaban [Eliquis] 2.5 mg PO BID tab 10/11/22 [Rx] HYDROcodone/APAP 5-325MG [[place] 5-325] 1 tab PO Q6HR PRN #30 tab 10/11/22 [Rx] Sennosides [Senokot] 2 tab PO DAILY PRN #60 tablet 10/11/22 [Rx] Follow up Appointment(s)/Referral(s): Ky Coats MD [Primary Care Provider] - 1-2 days Gerry Swartz DO [Doctor of Osteopathic Medicine] - 2 Weeks Activity/Diet/Wound Care/Special Instructions: Weightbearing as tolerated with walker. Please leave Optifoam dressing intact for 7 days. May shower with dressing intact. Recommend use of compression stockings daily until follow up to help prevent swelling and blood clots. May remove at night before sleeping. Follow-up with [facility] in 2 weeks with any questions or concerns, please call with any questions or concerns, Home medications resumed as appropriate and recommend continuing with Plavix and also started eliquis 2.5 mg twice daily for the next 4 weeks until orthopedic follow-up and then discuss with primary care provider Dr. Coats in regards to resuming aspirin Discharge Disposition: TRANSFER TO SNF/ECF
--- NOTE | 2022-10-12 12:30 | P.PN ---
Subjective Progress Note Date: 10/12/22 This is a Pleasant 82-year-old female who resides at [facility] and follows with Dr. Coats at the facility with past medical history of thrombocythemia, macular degeneration, history of coronary artery disease with myocardial infarction and stenting in 2012, GERD, osteoarthritis, Parkinson's disease and depression. Patient reports to being a former smoker and denies any other illicit drug use or alcohol. Patient at [facility] attempting occupational therapy and patient becoming progressively more weak and having falls with more frequent falls due to her Parkinson's and fell having some right hip pain. X-ray of the hip and pelvis showed an acute mildly displaced right proximal femoral neck fracture and the displacement is approximately 2.4 cm with no dislocation noted. Chest x-ray shows chronic changes without any evidence of acute process, EKG showed sinus rhythm. Labs reviewed and within normal limits with a hemoglobin of 12.3, sodium 137, potassium 4.1, creatinine 0.57. Patient was admitted to orthopedic services and planning for surgical intervention of the right hip fracture sometime this afternoon. Patient is medically stable and low to moderate risk for surgical intervention. Medical management was placed as a consult and will continue to follow. 10/10/2022 Patient is seen and evaluated in follow-up today status post right hip hemiarthroplasty anterior approach postop day 1. Patient is currently sitting up in the chair with daughter at the bedside. Patient is afebrile continued on oxygen 2 L of oxygen saturation is 99-100% recommend weaning FiO2 as tolerated. Recommend incentive spirometer at least 10 times every hour while awake. Encouraged oral intake. Daughter reports she worked with physical therapy today with getting up out of the bed and assisting to the chair. Patient will be returning to [facility] and will be continued on rehab postsurgery. Patient is continued on Plavix and daughter reports history of a blood clot in the left upper arm when she broke her humerus and concerned possibly apply, and her leg developing. Patient will be started on eliquis 2.5 mg twice a day for 4 weeks. Patient denies chest pain or shortness of breath. No reports of nausea or vomiting noted and tolerating [place] thus far. Would recommend limiting narcotic agents given patient age. 10/11/2022 Patient is seen and evaluated in follow-up today currently resting but arousable. Patient had indwelling Trimble catheter removed and due to void. Patient is maintained on gentle IV hydration and daughter at bedside with multiple concerns including dehydration and she felt her urine appeared concentrated and reports has not been eating or drinking much. Concerns with some overload versus atelectasis as patient has not been getting up much and needs to sit up in the chair more often will obtain a chest x-ray. Encouraged incentive spirometer at least 10 times every hour while awake and per nursing staff patient is not doing. Encouraged physical therapy daily for continued strength and mobility. Will follow-up with some repeat labs. Encouraged oral i ntake and will add oral supplements. Patient is currently afebrile with no reports of chest pain or shortness of breath. Patient has not reported any nausea or vomiting. 10/12/2022 Patient is evaluated today with daughter at the bedside. Currently alert x3 and resting comfortable. Reports controlled pain at this time. Indwelling catheter remains out and patient has voided. Patient received a dose of IV lasix yesterday currently denying shortness of breath, and no chest pain. No abdominal pain passing gas and normoactive bowel sounds, abdomen is soft. Patient has clear drainage from bilateral eyes and patient does report feeling mucousy in the morning has history of chronic allergic sinus issues per patient and recommending trial of flonase and claritin daily for 5 to 7 days and monitor for improvement in symptoms. If drainage becomes yellow/green crusty eyes are reddened consider antibiotic eye drops this was discussed with patients daughter and okay with the plan. Cleared medically for return to [facility] and recommending follow up labs. Review of systems: Constitutional: No reports of fatigue, fever, or chills Cardiovascular: No reports of chest pain or palpitations Respiratory: No reports of shortness of breath or cough GI: No reports of nausea, vomiting, or diarrhea, reports passing gas with no bowel movement : No reports of dysuria or retention Neurovascular: reports of generalized weakness and some right hip pain All medications have been reviewed PHYSICAL EXAMINATION: GENERAL: The patient is alert and oriented x2, pleasantly confused at times, elderly appearing, thin built HEENT: Pupils are round and equally reacting to light. EOMI. no scleral icterus. No conjunctival pallor. Normocephalic, atraumatic. No pharyngeal erythema. No thyromegaly. Has some clear drainage from the eyes bilaterally. CARDIOVASCULAR: S1 and S2 muffled PULMONARY: diminished breath sounds bilaterally with no wheezing or rhonchi noted. ABDOMEN: soft. Nontender on exam. non-distended, normoactive bowel sounds. No palpable organomegaly. MUSCULOSKELETAL: No joint swelling or deformity. EXTREMITIES: No cyanosis, clubbing, or pedal edema. Right lower extremity surgical dressing is dry and intact with some minimal swelling and bruising noted in the groin soft and palpable NEUROLOGICAL: Gross neurological examination did not reveal any focal deficits. Parkinsonian movements of the hands with faint twitch is noted of the lower extremities Diffuse weakness SKIN: No rashes. Assessment: Mildly displaced acute right proximal femoral neck fracture secondary to Fall Status post right hip hemiarthroplasty on 10/10/2022 Increased weakness and more frequent falling Altered mentation with some hallucinations most likely toxic encephalopathy secondary to medication effect of morphine, improved Bilateral drainage clear from eyes likely from an allergic rhinitis and will be treated with supportive care. History of Parkinson's History of coronary artery disease History of myocardial infarction with stenting in the past History of depression Gastroesophageal reflux disease History of DVT per daughter in the left upper extremity after humeral fracture Thrombocythemia GI prophylaxis DVT prophylaxis Full code Plan: Recommend to continue with current medications and management per orthopedic services. Patient working with physical therapy and would recommend daily as patient will be returning to [facility] Incentive spirometer encouraged at least 10 times every hour while awake. Per nursing staff patient is not using this and needs strong encouragement Recommend limiting narcotic agents and recommend continue Tylenol, or [place] as for severe pain. Patient was continued confusion although was this way on admission as well. Concerns for possible hospital-acquired delirium and would recommend opening the blinds in the a.m. and frequent reorientation as needed. This is expected to resolve on return to [facility]. Encouraged sitting up in the chair more often and increased activity as tolerated. Plavix was resumed and would recommend eliquis 2.5 mg twice a day Home medications will be reviewed and resumed as appropriate. Patient is cleared medically for discharge back to [facility] and recommending flonase and claritin for the eye drainage and follow up monitor for green/yellow crusty drainage and at that point would recommend antibiotic eye drops. Follow up labs. Thank you kindly for this consultation. The impression and plan of care has been dictated by Radha Broussard Nurse Practitioner as directed. Dr. Shagufta MD I have performed a history and physical examination and medical decision making of this patient, discussed the same with the dictator, and agree with the dictators assessment and plan as written, documented as a scribe. Based on total visit time, I have performed more than 50% of this visit. Objective - Vital Signs Vital signs: Vital Signs Temp 98.7 F 10/12/22 07:10 Pulse 88 10/12/22 07:10 Resp 16 10/12/22 07:10 BP 130/85 10/12/22 07:10 Pulse Ox 96 10/12/22 07:10 FiO2 Intake & Output 10/11/22 10/12/22 10/12/22 18:59 06:59 18:59 Intake Total 240 500 Output Total 500 Balance -260 500 Intake: Oral 240 500 Output: Urine 500 Other: Voiding Method Indwelling Catheter Diaper # Voids 0 3 - Labs CBC & Chem 7: 10/12/22 06:14 10/12/22 06:14 Labs: Abnormal Lab Results - Last 24 Hours (Table) 10/12/22 10/12/22 Range/Units 06:14 06:14 RBC 2.70 L (3.80-5.40) m/uL Hgb 9.0 L D (11.4-16.0) gm/dL Hct 29.3 L (34.0-46.0) % MCV 108.8 H (80.0-100.0) fL MCHC 30.7 L (31.0-37.0) g/dL Macrocytosis Marked A Sodium 136 L (137-145) mmol/L Creatinine 0.45 L (0.52-1.04) mg/dL Calcium 7.6 L (8.4-10.2) mg/dL Assessment and Plan Time with Patient: Less than 30
[2022-10-12 13:24] VITALS: BP 120/82; PULSE 77; RESP 17; TEMP 98.2
--- NOTE | 2022-10-16 10:23 | P.OP ---
Date of Procedure: 10/09/22 Preoperative Diagnosis: Subcapital fracture right hip Postoperative Diagnosis: Subcapital fracture right hip Procedure(s) Performed: Right hip hemiarthroplasty Implants: Yung and nephew Polarstem size 4 standard with a collar Yung & Nephew tandem unipolar, 42 mm Yung & Nephew tandem unipolar 12/14 taper sleeve, +0 mm All components were press-fit. Anesthesia: CINDI Surgeon: Gerry Swartz Airport Screener #1: Keyla Wen Estimated Blood Loss (ml): 100 Pathology: none sent Condition: stable Disposition: PACU Indications for Procedure: This is an 82-year-old female that sustained a ground-level fall while at the halfway. She sustained a subcapital fracture of her right hip. I've recommended a right hip hemiarthroplasty with a direct anterior approach. The surgical treatment options were discussed with her family at length. They're wear of the complications of the procedure and informed consent was obtained. Operative Findings: The operative findings are consistent with a subcapital fracture of the right hip Description of Procedure: The patient was seen and evaluated in the preoperative area and the consent was reviewed. The operative site was marked with a skin marker. The patient verified the procedure and operative site. A FEDERICO block was placed by anesthesia in the preoperative area. The patient was then brought to the operating room and given preoperative antibiotics intravenously. 1 g of Tranexamic acid was also given intravenously. A general anesthetic was administered by the anesthesia department. The patient was then placed on the [place] table with the bony prominences well-padded. The hip area was then prepped with a ChloraPrep solution and draped in the usual sterile fashion. A universal timeout was then performed, which confirmed the patient's name, surgical site, ALLERGIES, and procedure being performed on the consent. Next the incision site was located at 1 cm distal and 4 cm lateral to the anterior superior iliac spine. The skin and subcutaneous tissues were sharply incised. Incision was carefully dissected down to the fascia overlying the tensor fascia roverto muscle. This fascia was then incised in line with the muscle fibers. Care was taken to stay laterally in order to avoid injuring the lateral femoral cutaneous nerve. Next, using blunt finger dissection, the tensor fascia roverto muscle was dissected off its investing fascia. The muscle was then carefully retracted laterally with a cobra retractor over the lateral neck of the femur. Next, the circumflex vessels were identified and cauterized using the Aquamantis device. The anterior hip capsule was then exposed. The capsule was then opened and an inverted T fashion. The fracture hematoma was evacuated. The retractors were then placed intracapsularly. The retractors were maintained intracapsular throughout the procedure. The proximal femur was then visualized. A small amount of traction was placed on the leg. The femoral neck was then osteotomized at the appropriate level above the lesser trochanter. A small wedge of bone was then removed from the remaining femoral head. Next, using a corkscrew the femoral head was removed from the acetabulum. The femoral head was then measured. Attention was then directed to the femur. With the aid of the [place] table, the femur was externally rotated to approximately 130, extended, and adducted under the opposite leg. A side hook was then placed under the proximal femur, and the side hook elevator was used to elevate the proximal femur while releasing the capsule. Retractors were then placed. A capsular release was performed, as well as a release of the conjoined tendon, which afforded excellent visualization of the proximal femur. Next, a box osteotome was used to lateralize the proximal femur. A outside cutter hand was then used to locate the femoral canal. Sequential broaching was then performed with appropriate size which afforded excellent fixation in the proximal femur. A trial was then placed with appropriate head and neck, and the hip was gently reduced with the aid of the [place] table. Fluoroscopy was then used to check position of the components, as well as to evaluate the leg lengths and offset. The leg lengths and offset were measured as closely as possible to ensure stability of the hip. The hip was then gently dislocated and the trials were then removed. Final implants were then impacted and the hip was again reduced. Final fluoroscopic x-rays confirmed that the components were in anatomic position. The leg lengths and offset were measured and were found to coincide with the trial measurements. The hip was also taken through range of motion, and found to be stable. The hip was then copiously irrigated with antibiotic solution with pulsatile lavage. The hip was then irrigated with Irrisept solution. The soft tissues were then injected with a ropivacaine solution. A second dose of 1 g of Tranexamic acid was also given intravenously. The fascia was then closed with 2-0 strata fix suture. The subcutaneous tissue was closed with 3-0 Vicryl. The subcuticular tissue was closed with 3-0 strata fix suture. The skin was then closed with Exofin skin glue. After the glue and dried, and Optifoam silver impregnated dressing was applied. The patient was then transferred to the recovery room in stable condition. The assistant signal maintainer EDWARDO Calabrese was required due to the complexity of surgery, and the need for skilled surgical training specialist for positioning, draping, exposure, retraction, and closure of the wound.
== END 2022-10-12 14:08 | DRG 521 ==
LOC: EC 14:51 → 4SSUR 16:57
PROVIDERS: ADMIT Orthopaedic Surgery; ATTEND Orthopaedic Surgery
PROC: 0SC90ZZ Extirpation of Matter from Right Hip Joint, Open Approach (ICD-10-PCS; principal; 2022-10-09 10:00)
PROC: 0SR902A Replacement of Right Hip Joint with Metal on Polyethylene Synthetic Substitute, Uncemented, Open Approach (ICD-10-PCS; principal; 2022-10-09 10:00)
DX: S72.011A Unspecified intracapsular fracture of right femur, initial encounter for closed fracture (principal); G92.8 Other toxic encephalopathy; F03.93 Unspecified dementia, unspecified severity, with mood disturbance; G20 Parkinson's disease; T40.2X5A Adverse effect of other opioids, initial encounter; K21.9 Gastro-esophageal reflux disease without esophagitis; I25.10 Atherosclerotic heart disease of native coronary artery without angina pectoris; M19.90 Unspecified osteoarthritis, unspecified site; H35.30 Unspecified macular degeneration; J30.9 Allergic rhinitis, unspecified; I25.2 Old myocardial infarction; Z79.82 Long term (current) use of aspirin; Z79.02 Long term (current) use of antithrombotics/antiplatelets; Z79.899 Other long term (current) drug therapy; Z91.81 History of falling; Z95.5 Presence of coronary angioplasty implant and graft; Z86.718 Personal history of other venous thrombosis and embolism; Z86.19 Personal history of other infectious and parasitic diseases; Z88.0 Allergy status to penicillin; Z91.013 Allergy to seafood; Z91.048 Other nonmedicinal substance allergy status; Z87.891 Personal history of nicotine dependence; W05.0XXA Fall from non-moving wheelchair, initial encounter; Y93.89 Activity, other specified; Y92.129 Unspecified place in nursing home as the place of occurrence of the external cause
CPT/HCPCS: 36415; 51702; 71045; 73501; 73502; 80048; 80053; 83735; 85025; 85610; 85730; 93005; 94760; 96374; 96376

== ENCOUNTER 2024-08-30 17:22 | Emergency (ER) | payer MEDICARE, OTHER ==
[2024-08-30 17:29] LABS: Glucose,Whole Blood 106 mg/dL (70-110)
--- NOTE | 2024-08-30 17:44 | ED ---
General Adult HPI - General Chief complaint: Fall Stated complaint: fall Time Seen by Provider: 08/30/24 17:23 Source: patient Mode of arrival: EMS Limitations: no limitations - History of Present Illness Initial comments: Henna is a pleasantly demented 84-year-old female is brought to the emergency department today by ambulance for evaluation of head injury after a fall. Patient had an unwitnessed fall she was found facedown in the restroom at her [facility]. Patient was noted to have bruising over the left episcopal and pain and swelling in the left upper extremity. Per EMS patient's baseline is A&O x 2. Patient's daughters report that the patient is wheelchair-bound and not supposed to get out of wheelchair, they believe she would try to wheel herself to the bathroom when she fell, they do feel she gets adequate care at [facility] and is safe to return there. - Related Data Home Medications Medication Instructions Recorded Confirmed RX: Carbidopa-Levodopa 25-100 mg 1 tab PO TID@0800,1400,2200 01/04/19 08/30/24 [Sinemet 25-100 mg] RX: Ezetimibe [Zetia] 10 mg PO HS@2100 07/04/20 08/30/24 RX: Hydroxyurea [Hydrea] 1,000 mg PO SUSA@0800 07/04/20 08/30/24 RX: Hydroxyurea [Hydrea] 500 mg PO TUWETHFR@0800 07/04/20 08/30/24 RX: Acetaminophen [Tylenol Extra 500 mg PO TID@0800,1200,1700 10/08/22 08/30/24 Strength] RX: Clopidogrel [Plavix] 75 mg PO DAILY@0810/08/22 08/30/24 RX: Escitalopram [Lexapro] 10 mg PO DAILY@0810/08/22 08/30/24 RX: L.acidoph,Paracasei, B.lactis 1 cap PO DAILY@79910/08/22 08/30/24 [Probiotic] RX: Loperamide HCl [Imodium A-D] 4 mg PO BID PRN 10/08/22 08/30/24 RX: Magnesium Hydroxide [Milk of 7,200 mg PO Q48H PRN 10/08/22 08/30/24 Magnesia Concentrate] RX: Na Phos,M-B/Na Phos,Di-Ba 133 ml RECTAL DAILY PRN 10/08/22 08/30/24 [Fleet Adult] RX: QUEtiapine [SEROquel] 12.5 mg PO HS@2100 10/08/22 08/30/24 RX: bisacodyL [Dulcolax] 10 mg RECTAL DAILY PRN 10/08/22 08/30/24 RX: guaiFENesin [guaiFENesin Oral 200 mg PO Q4H PRN 10/08/22 08/30/24 Solution] Benzonatate [Tessalon Perles] 100 mg PO TID@0700,1400,209908/30/24 08/30/24 Clotrimazole Cream [Lotrimin Cream] 1 applic TOPICAL BID@0800,1700 08/30/24 0 08/30/24 Cranberry Juice Extract 425mg 1 cap PO DAILY@0800 08/30/24 08/30/24 Eucerin Daily Hydration Cream 1 applic TOPICAL BID 08/30/24 08/30/24 RX: Aspirin 81 mg PO DAILY@0800 08/30/24 08/30/24 RX: Melatonin 3 mg PO HS@209908/30/24 08/30/24 Sennosides-Docusate Sodium 1 tab PO BID@0800,1700 08/30/24 08/30/24 [Senokot-S] Previous Rx's Medication Instructions Recorded HYDROcodone/APAP 5-325MG [[place] 1 tab PO Q6HR PRN #30 tab 10/11/22 5-325] Allergies Allergy/AdvReac Type Severity Reaction Status Date / Time adhesive Allergy Rash/Hives Verified 08/30/24 19:17 haloperidol [From Haldol] Allergy Unknown Verified 08/30/24 19:17 Penicillins Allergy Rash/Hives Verified 08/30/24 19:17 shellfish derived [Shellfish] AdvReac Nausea & Verified 08/30/24 19:17 Vomiting & Diarrhea Review of Systems ROS Statement: Those systems with pertinent positive or pertinent negative responses have been documented in the HPI. ROS Other: All systems not noted in ROS Statement are negative. Past Medical History Past Medical History: Blood Disorder, Coronary Artery Disease (CAD), GERD/Reflux, Myocardial Infarction (OH), Musculoskeletal Disorder, Neurologic Disorder, Osteoarthritis (OA) Additional Past Medical History / Comment(s): Parkinson's disease, thrombocythemia,macular degeneration Last Myocardial Infarction Date:: 2012 History of Any Multi-Drug Resistant Organisms: ESBL Date of last positivie culture/infection: 08/14/22 ESBL E.coli MDRO Source:: Urine Past Surgical History: Heart Catheterization, Heart Catheterization With Stent, Tonsillectomy, Tubal Ligation Additional Past Surgical History / Comment(s): 2003 PCI with 2 stents, 2009 PCI with 1 stent, 2012 cardiac cath-treat medically, bilateral cataract removals/lens implants, Past Anesthesia/Blood Transfusion Reactions: No Reported Reaction Additional Past Anesthesia/Blood Transfusion Reaction / Comment(s): Pt has never had. Date of Last Stent Placement:: 2009 Past Psychological History: Depression Smoking Status: Former smoker Past Alcohol Use History: None Reported Past Drug Use History: None Reported - Past Family History Father Family Medical History: Cancer Additional Family Medical History / Comment(s): Father had prostate cancer. Mother Family Medical History: Chest Pain / Angina, Coronary Artery Disease (CAD) General Exam - General Exam Comments Initial Comments: Physical Exam GENERAL: Chronically ill appearing, thin HENT: Large hematoma over left temporal region EYES: PERRL, EOMI PULMONARY: Unlabored respirations CARDIOVASCULAR: RRR ABDOMEN: Soft and nontender with normal bowel sounds. SKIN: Abrasion to left thumb Chronic wound over bridge of nose from glasses : Deferred NEUROLOGIC: Patient is alert and oriented to self MUSCULOSKELETAL: Pain and swelling in left proximal humerus Limitations: no limitations Course Vital Signs 08/30/24 08/30/24 08/30/24 17:24 17:28 17:53 Temperature 97.9 F 97.8 F Pulse Rate 80 78 82 Respiratory 16 20 17 Rate Blood Pressure 143/64 140/80 143/98 O2 Sat by Pulse 98 98 63 L Oximetry 08/30/24 18:28 Temperature 98.2 F Pulse Rate 84 Respiratory 17 Rate Blood Pressure 140/93 O2 Sat by Pulse 97 Oximetry EKG Findings - EKG Comments: EKG Findings:: EKG obtained as part of the trauma workup EKG obtained at 1805 rate is 83 rhythm is sinus normal axis normal intervals AR 140 QRS 82 QTc [address] elevations or depressions no evidence of ischemia infarction or pathologic arrhythmia Medical Decision Making - Medical Decision Making Was pt. sent in by a medical professional or institution (EDWARDO Carmen, SPORTS BOOK SERVER, urgent care, hospital, or alf...) When possible be specific @ -Yes, sent from alf Did you speak to anyone other than the patient for history (EMS, parent, family, police, friend...)? What history was obtained from this source @ -EMS, family Did you review nursing and triage notes (agree or disagree)? Why? @ -I reviewed and agree with nursing and triage notes Were old charts reviewed (outside hosp., previous admission, EMS record, old EKG, old radiological studies, urgent care reports/EKG's, alf records)? Report findings @ -No old charts were reviewed Differential Diagnosis (chest pain, altered mental status, abdominal pain women, abdominal pain men, vaginal bleeding, weakness, fever, dyspnea, syncope, headache, dizziness, GI bleed, back pain, seizure, CVA, palpatations, mental health)? @ -Not applicable EKG interpreted by me (3pts min.). @ -As above X-rays interpreted by me (1pt min.). @ -Left humerus x-ray with previous fracture with callus formation noted, new clavicular fracture distal clavicle CT interpreted by me (1pt min.). @ -CT head with senescent changes, no acute bleed U/S interpreted by me (1pt. min.). @ -None done What testing was considered but not performed or refused? (CT, X-rays, U/S, labs)? Why? @ -None What meds were considered but not given or refused? Why? @ -None Did you discuss the management of the patient with other professionals (professionals i.e. EDWARDO Carmen, SPORTS BOOK SERVER, lab, RT, psych nurse, health social work professor, aircraft technician, teacher, marine safety officer, case liner)? Give summary @ -No Was smoking cessation discussed for >3mins.? @ -No Was critical care preformed (if so, how long)? @ -No Were there social determinants of health that impacted care today? How? (Homelessness, low income, unemployed, alcoholism, drug addiction, transportation, low edu. Level, literacy, decrease access to med. care, alf, rehab)? @ -No Was there de-escalation of care discussed even if they declined (Discuss DNR or withdrawal of care, Hospice)? DNR status @ -No What co-morbidities impacted this encounter? (DM, HTN, Smoking, COPD, CAD, Cancer, CVA, ARF, Chemo, Hep., AIDS, mental health diagnosis, sleep apnea, m orbid obesity)? @ -None Was patient admitted / discharged? Hospital course, mention meds given and route, prescriptions, significant lab abnormalities, going to OR and other pertinent info. @ -Discharged The patient was seen and evaluated history obtained from EMS and family, physical exam as above, imaging including CT head x-ray of the left humerus and pelvis were completed. Patient has chronic fracture of the proximal humerus as well as acute fracture of the clavicle. Patient was placed in the sling. I did offer to admit the patient to the hospital for physical therapy but daughter aisha cruz she can get adequate therapy at [facility] and would like to return there. Patient will return [facility] ambulance. Undiagnosed new problem with uncertain prognosis? @ -No Drug Therapy requiring intensive monitoring for toxicity (Heparin, Nitro, Insulin, Cardizem)? @ -No Were any procedures done? @ -No Diagnosis/symptom? @ -Fall from wheelchair, left clavicle fracture Acute, or Chronic, or Acute on Chronic? @ -Acute Uncomplicated (without systemic symptoms) or Complicated (systemic symptoms)? @ -Default Side effects of treatment? @ -No Exacerbation, Progression, or Severe Exacerbation? @ -No Poses a threat to life or bodily function? How? (Chest pain, [place], [place], pneumonia, PE, COPD, DKA, ARF, appy, cholecystitis, CVA, Diverticulitis, Homicidal, Suicidal, threat to staff... and all critical care pts) @ -No - Lab Data Result diagrams: 08/30/24 17:26 08/30/24 17:26 Lab Results 08/30/24 08/30/24 08/30/24 Range/Units 17:26 17:26 17:26 WBC 5.49 (4.50-10.00) 10*3/uL RBC 3.18 L (4.10-5.20) 10*6/uL Hgb 11.8 L (12.0-15.0) g/dL Hct 36.1 L (37.2-46.3) % MCV 113.5 H (80.0-97.0) fL MCH 37.1 H (27.0-32.0) pg MCHC 32.7 (32.0-37.0) g/dL Plt Count 207 (140-440) 10*3/uL MPV 9.7 (9.5-12.2) fL Immature Gran % (Auto) 0.2 % Neutrophils % 77.4 % Lymphocytes % 15.1 % Monocytes % 6.4 % Eosinophils % 0.2 % Basophils % 0.7 % Immature Gran # 0.01 (0.00-0.04) 10*3/uL Neutrophils # 4.25 (1.80-7.70) 10*3/uL Lymphocytes # 0.83 L (0.90-5.00) 10*3/uL Monocytes # 0.35 (0.20-1.00) 10*3/uL Eosinophils # 0.01 L (0.04-0.35) 10*3/uL Basophils # 0.04 (0.00-0.10) 10*3/uL Manual Slide Review Performed Polychromasia Present PT 11.1 (10.0-12.5) sec INR 1.0 (<1.2) APTT 22.7 (22.0-30.0) sec Sodium 138 (137-145) mmol/L Potassium 4.9 (3.5-5.1) mmol/L Chloride 106 (98-107) mmol/L Carbon Dioxide 24 (22-30) mmol/L Anion Gap 8 mmol/L BUN 26 H (7-17) mg/dL Creatinine 0.59 (0.52-1.04) mg/dL Est GFR (CKD-EPI)AfAm >90 (>60 ml/min/1.73 sqM) Est GFR (CKD-EPI)NonAf 85 (>60 ml/min/1.73 sqM) Glucose 115 H (74-99) mg/dL POC Glucose (mg/dL) (70-110) mg/dL POC Glu Business Banking Relationship Manager ID Plasma Lactic Acid Fuentes (0.7-2.0) mmol/L Calcium 9.2 (8.4-10.2) mg/dL Total Bilirubin 0.7 (0.2-1.3) mg/dL AST 21 (14-36) U/L ALT 6 (4-34) U/L Alkaline Phosphatase 92 (38-126) U/L Creatine Kinase 22 L (30-135) U/L Total Protein 7.5 (6.3-8.2) g/dL Albumin 4.2 (3.5-5.0) g/dL Blood Type Blood Type Confirm Blood Type Recheck Bld Type Recheck Status Antibody Screen Spec Expiration Date 08/30/24 08/30/24 08/30/24 Range/Units 17:26 17:27 17:30 WBC (4.50-10.00) 10*3/uL RBC (4.10-5.20) 10*6/uL Hgb (12.0-15.0) g/dL Hct (37.2-46.3) % MCV (80.0-97.0) fL MCH (27.0-32.0) pg MCHC (32.0-37.0) g/dL Plt Count (140-440) 10*3/uL MPV (9.5-12.2) fL Immature Gran % (Auto) % Neutrophils % % Lymphocytes % % Monocytes % % Eosinophils % % Basophils % % Immature Gran # (0.00-0.04) 10*3/uL Neutrophils # (1.80-7.70) 10*3/uL Lymphocytes # (0.90-5.00) 10*3/uL Monocytes # (0.20-1.00) 10*3/uL Eosinophils # (0.04-0.35) 10*3/uL Basophils # (0.00-0.10) 10*3/uL Manual Slide Review Polychromasia PT (10.0-12.5) sec INR (<1.2) APTT (22.0-30.0) sec Sodium (137-145) mmol/L Potassium (3.5-5.1) mmol/L Chloride (98-107) mmol/L Carbon Dioxide (22-30) mmol/L Anion Gap mmol/L BUN (7-17) mg/dL Creatinine (0.52-1.04) mg/dL Est GFR (CKD-EPI)AfAm (>60 ml/min/1.73 sqM) Est GFR (CKD-EPI)NonAf (>60 ml/min/1.73 sqM) Glucose (74-99) mg/dL POC Glucose (mg/dL) 106 (70-110) mg/dL POC Glu Business Banking Relationship Manager ID Tevin Thomas Plasma Lactic Acid Fuentes 1.4 (0.7-2.0) mmol/L Calcium (8.4-10.2) mg/dL Total Bilirubin (0.2-1.3) mg/dL AST (14-36) U/L ALT (4-34) U/L Alkaline Phosphatase (38-126) U/L Creatine Kinase (30-135) U/L Total Protein (6.3-8.2) g/dL Albumin (3.5-5.0) g/dL Blood Type O Negative Blood Type Confirm Blood Type Recheck No Previous Record Bld Type Recheck Status CABO Indicated Antibody Screen NEGATIVE Spec Expiration Date 09/02/2024 - 232908/30/24 Range/Units 17:35 WBC (4.50-10.00) 10*3/uL RBC (4.10-5.20) 10*6/uL Hgb (12.0-15.0) g/dL Hct (37.2-46.3) % MCV (80.0-97.0) fL MCH (27.0-32.0) pg MCHC (32.0-37.0) g/dL Plt Count (140-440) 10*3/uL MPV (9.5-12.2) fL Immature Gran % (Auto) % Neutrophils % % Lymphocytes % % Monocytes % % Eosinophils % % Basophils % % Immature Gran # (0.00-0.04) 10*3/uL Neutrophils # (1.80-7.70) 10*3/uL Lymphocytes # (0.90-5.00) 10*3/uL Monocytes # (0.20-1.00) 10*3/uL Eosinophils # (0.04-0.35) 10*3/uL Basophils # (0.00-0.10) 10*3/uL Manual Slide Review Polychromasia PT (10.0-12.5) sec INR (<1.2) APTT (22.0-30.0) sec Sodium (137-145) mmol/L Potassium (3.5-5.1) mmol/L Chloride (98-107) mmol/L Carbon Dioxide (22-30) mmol/L Anion Gap mmol/L BUN (7-17) mg/dL Creatinine (0.52-1.04) mg/dL Est GFR (CKD-EPI)AfAm (>60 ml/min/1.73 sqM) Est GFR (CKD-EPI)NonAf (>60 ml/min/1.73 sqM) Glucose (74-99) mg/dL POC Glucose (mg/dL) (70-110) mg/dL POC Glu Business Banking Relationship Manager ID Plasma Lactic Acid Fuentes (0.7-2.0) mmol/L Calcium (8.4-10.2) mg/dL Total Bilirubin (0.2-1.3) mg/dL AST (14-36) U/L ALT (4-34) U/L Alkaline Phosphatase (38-126) U/L Creatine Kinase (30-135) U/L Total Protein (6.3-8.2) g/dL Albumin (3.5-5.0) g/dL Blood Type Blood Type Confirm O Negative Blood Type Recheck Bld Type Recheck Status Antibody Screen Spec Expiration Date Disposition Clinical Impression: Fall, Closed fracture of distal clavicle Disposition: HOME SELF-CARE Condition: Stable Instructions (If sedation given, give patient instructions): Fall Prevention for Older Adults (ED) Is patient prescribed a controlled substance at d/c from ED?: No Referrals: Ky Coats MD [Primary Care Provider] - 1-2 days
[2024-08-30 17:45] LABS: Basophils # (A) 0.04 10*3/uL (0.00-0.10); Basophils % (A) 0.7 %; Eosinophils # (A) 0.01 10*3/uL (0.04-0.35); Eosinophils % (A) 0.2 %; HCT 36.1 % (37.2-46.3); HGB 11.8 g/dL (12.0-15.0); Lymphocytes # (A) 0.83 10*3/uL (0.90-5.00); Lymphocytes % (A) 15.1 %; MCH 37.1 pg (27.0-32.0); MCHC 32.7 g/dL (32.0-37.0); MCV 113.5 fL (80.0-97.0); Mean Platelet Volume 9.7 fL (9.5-12.2); Monocytes # (A) 0.35 10*3/uL (0.20-1.00); Monocytes % (A) 6.4 %; Neutrophils # (A) 4.25 10*3/uL (1.80-7.70); Neutrophils % (A) 77.4 %; Platelet Count 207 10*3/uL (140-440); RBC 3.18 10*6/uL (4.10-5.20); RDW 13.2 % (11.5-14.5); WBC 5.49 10*3/uL (4.50-10.00)
[2024-08-30 17:58] LABS: ALT 6 U/L (4-34); AST 21 U/L (14-36); African American GFR (CKD) >90 (>60 ml/min/1.73 sqM); Albumin 4.2 g/dL (3.5-5.0); Alkaline Phosphatase 92 U/L (38-126); Anion Gap 8 mmol/L; Blood Urea Nitrogen 26 mg/dL (7-17); Calcium 9.2 mg/dL (8.4-10.2); Carbon Dioxide 24 mmol/L (22-30); Chloride 106 mmol/L (98-107); Creatine Kinase 22 U/L (30-135); Glucose 115 mg/dL (74-99); Non-African American GFR(CKD) 85 (>60 ml/min/1.73 sqM); Potassium 4.9 mmol/L (3.5-5.1); Sodium 138 mmol/L (137-145); Total Bilirubin 0.7 mg/dL (0.2-1.3); Total Protein 7.5 g/dL (6.3-8.2)
[2024-08-30 18:05] LABS: Partial Thromboplastin Time 22.7 sec (22.0-30.0); Prothrombin Time 11.1 sec (10.0-12.5)
--- NOTE | 2024-08-30 18:10 | CT ---
EXAMINATION TYPE: CT brain kurtine wo con DATE OF EXAM: 08/30/2024 6:01 PM COMPARISON: None. CLINICAL INDICATION: Female, 84 years old with history of trauma, fall from standing unwitnessed kelly lonny left temporal with deformity to left humerus, pain TECHNIQUE: CT of the brain is performed utilizing 3 mm thick sections through the posterior fossa and 3 mm thick sections through the remaining calvarium. Study is performed within 24 hours of arrival to the hospital. Contrast used: mL of , (none if empty) CT DLP: 1266.7 mGycm, Automated exposure control for dose reduction was used. FINDINGS: No abnormal hyperdensity is present to suggest an acute intracranial hemorrhage. No mass lesion is evident. No acute infarcts are evident. Periventricular white matter hypodensity is present, likely on the ba sis of chronic white matter ischemic changes Ventricles and sulci are prominent for the patient age. Paranasal sinuses and mastoid air cells within the [id number] are clear. There is some soft tissue swelling over the left frontal temporal region. No underlying fracture is e vident IMPRESSIONS: 1. No acute intracranial process. Follow-up MRI can be performed as clinically indicated. 2. Atrophy with chronic appearing periventricular white matter ischemic-type changes. 3. Soft tissue swelling left frontal temporal region CT cervical spine. COMPARISON: None TECHNIQUE: CT of the cervical spine is performed in the axial plane at 2 mm thick sections. Reconstr ucted images in the coronal, and sagittal plane are reviewed on the computer. FINDINGS: No acute fractures are evident. Vertebral body alignment is normal. Disc heights are preserved. Vertebral body heights are preserved. No spinal canal stenosis is evident. C5-6 uncovertebral joint hypertrophy is foraminal narrowing IMPRESSION: 1. No acute osseous abnormality cervical spine [facility], Workstation: [facility], 08/30/2024 6:08 PM
[2024-08-30 18:57] LABS: Polychromasia Present
--- NOTE | 2024-08-30 19:12 | XR ---
EXAMINATION TYPE: XR pelvis AP view DATE OF EXAM: 08/30/2024 6:56 PM COMPARISON: None. CLINICAL INDICATION: Female, 84 years old with history of Trauma, pain TECHNIQUE: AP view(s) obtained. FINDINGS: There is a right femoral prosthesis. Symphysis pubis and sacroiliac joints are normal. No acute fract ures or dislocations evident. Normal bowel gas is present IMPRESSION: 1. No acute osseous abnormality AP pelvis [facility], Workstation: [facility], 08/30/2024 7:10 PM
--- NOTE | 2024-08-30 19:16 | XR ---
EXAMINATION TYPE: XR humerus LT DATE OF EXAM: 08/30/2024 6:56 PM COMPARISON: None CLINICAL INDICATION: Female, 84 years old with history of deformity, pain, Fall from standing, pain, deformity TECHNIQUE: 2 view(s) obtained. FINDINGS: There is a surgical neck fracture of the left humerus. This may be old. The humeral head articulates with the glenoid. There is a fracture of the distal clavicle. The acromioclavicular junction is prese rved. IMPRESSION: 1. Fracture of the distal left clavicle. 2. There appears to be an old fracture of the surgical neck left humerus. Correlate with pain in hank jesus alberto. [facility], Workstation: [facility], 08/30/2024 7:14 PM
--- NOTE | 2024-08-30 19:18 | XR ---
EXAMINATION TYPE: XR chest 1V portable DATE OF EXAM: 08/30/2024 6:56 PM COMPARISON: 10/11/2022 CLINICAL INDICATION: Female, 84 years old with history of trauma, TECHNIQUE: XR chest 1V portable view(s) obtained. Patient is rotated to the left. FINDINGS: The heart size is normal. The pulmonary vasculature is normal. The lungs are clear. Distal left clavicular fracture partially visualized. Visualized ribs appear intact. No pneumothorax evident. IMPRESSION: 1. There is a distal left clavicular fracture. 2. No acute pulmonary process. [facility], Workstation: [facility], 08/30/2024 7:16 PM
[2024-08-30] MEDS: ONDANSETRON 4 MG/2 ML VIAL IVP STA (19:48)
[2024-08-30] MEDS: MORPHINE SULFATE 4 MG/ML SYRINGE IVP STA (19:50)
[2024-08-30 21:50] VITALS: BP 106/83; PULSE 83; RESP 16; TEMP 98.1
== END 2024-08-30 21:48 | disposition home or self-care (01) ==
LOC: EC 17:22
DX: S42.032A Displaced fracture of lateral end of left clavicle, initial encounter for closed fracture (principal); S00.83XA Contusion of other part of head, initial encounter; Z87.891 Personal history of nicotine dependence; Z88.0 Allergy status to penicillin; Z88.8 Allergy status to other drugs, medicaments and biological substances; Z91.048 Other nonmedicinal substance allergy status; Z91.013 Allergy to seafood; W07.XXXA Fall from chair, initial encounter
CPT/HCPCS: 36415; 93005; 86900; 86901; 80053; 82550; 83605; 85025; 85610; 85730; 86850; 72170; 73060; 71045; 72125; 70450; 99285; 96374; 96375; J2270; J2405